=== PATIENT | female | born 1930 | race Caucasian/White ===

== ENCOUNTER 2016-10-23 11:00 | Outpatient (CLI) | payer MEDICARE, OTHER | END 2016-10-23 11:01 | disposition home or self-care (01) | DX: I50.9 Heart failure, unspecified (principal); Z95.0 Presence of cardiac pacemaker ==

== ENCOUNTER 2017-02-20 11:48 | Emergency (ER) | payer MEDICARE, OTHER ==
[2017-02-20] MEDS ORDERED: ACETAMINOPHEN 500 MG TABLET PO STA (13:01)
--- NOTE | 2017-02-20 13:04 | ED Physician Documentation ---
PD HPI MAJOR TRAUMA - Stated complaint Stated Complaint: HEAD LAC, LEFT HIP & ARM PX, GLF - Chief complaint Chief Complaint: Ext Problem - History obtained from History obtained from: Patient, Family - History of Present Illness Mechanism of injury: Fell (86-year-old woman who is up-to-date on tetanus and not anticoagulated fell backwards off a step hitting her head and left side on concrete. No loss of consciousness. She complains only mostly of headache but also some upper neck pain, but also left shoulder and hip pain. She is able to walk and bear weight but is unsteady per the son. However it does not exacerbate the hip when she walks.) Review of Systems Ten Systems: 10 systems reviewed and negative Constitutional: denies: Fever, Chills Throat: denies: Dental pain / toothache, Sore throat Cardiac: denies: Chest pain / pressure, Palpitations Respiratory: denies: Dyspnea PD PAST MEDICAL HISTORY - Past Medical History Cardiovascular: Hypertension Neuro: CVA - Past Surgical History Past Surgical History: Yes Cardiovascular: Pacemaker - Present Medications Home Medications: Ambulatory Orders Medication Instructions Recorded Confirmed Aspirin 81 mg PO 02/20/17 Calcium Carbonate/Vitamin D3 1 each PO 02/20/17 [Calcium 250-Vit D3 125 Tablet] Multivitamin [Multivitamins] 1 each PO 02/20/17 - Allergies Allergies/Adverse Reactions: Allergies Allergy/AdvReac Type Severity Reaction Status Date / Time amlodipine Allergy Unknown Verified 02/20/17 12:02 - Social History Does the pt smoke?: No Smoking Status: Never smoker Does the pt drink ETOH?: Yes Does the pt have substance abuse?: No PD ED PE NORMAL - Vitals Vital signs reviewed: Yes - General General: Alert and oriented X 3, No acute distress - HEENT HEENT: PERRL, EOMI, Other (There is an abrasion with a hematoma on the left occipital area, nothing to suture. She has mild upper neck tenderness with full range of motion.) - Cardiac Cardiac: RRR, No murmur - Respiratory Respiratory: No respiratory distress, Clear bilaterally - Abdomen Abdomen: Non tender - Back Back: No spinal TTP - Derm Derm: Normal color, Warm and dry - Extremities Extremities: Other (Left wrist is inconsistently tender as are the shoulder and hip. She is able to range them all without pain and internal and external rotation of the left hip is painless.) - Neuro Neuro: Alert and oriented X 3, Normal speech - Psych Psych: Normal mood, Normal affect Results - Vitals Vitals: Vital Signs - 24 hr 02/20/17 02/20/17 11:57 15:44 Temperature 36.8 C 36.7 C Heart Rate 66 68 Respiratory 16 18 Rate Blood Pressure 160/93 H 150/88 H O2 Saturation 97 98 Oxygen O2 Source Room air - Rads (name of study) CT Head/cspine Radiology: EMP read contemporaneously (Chronic and degenerative findings, she does have a small sclerotic area in C7) X-rays of the left wrist, left shoulder, left hip Radiology: EMP read contemporaneously (Osteoarthritis, no fracture) Departure - Departure Disposition: 01 Home, Self Care Clinical Impression: Fall Qualifiers: Encounter type: initial encounter Qualified Code(s): W19.XXXA - Unspecified fall, initial encounter Head injury Qualifiers: Encounter type: initial encounter Qualified Code(s): S09.90XA - Unspecified injury of head, initial encounter Scalp abrasion Qualifiers: Encounter type: initial encounter Qualified Code(s): S00.01XA - Abrasion of scalp, initial encounter Neck strain Qualifiers: Encounter type: initial encounter Qualified Code(s): S16.1XXA - Strain of muscle, fascia and tendon at neck level, initial encounter Contusion of left shoulder Qualifiers: Encounter type: initial encounter Qualified Code(s): S40.012A - Contusion of left shoulder, initial encounter Left wrist sprain Qualifiers: Encounter type: initial encounter Qualified Code(s): S63.502A - Unspecified sprain of left wrist, initial encounter Sprain of left hip Qualifiers: Encounter type: initial encounter Qualified Code(s): S73.102A - Unspecified sprain of left hip, initial encounter Condition: Good Record reviewed to determine appropriate education?: Yes Instructions: ED Head Injury Closed Comments: Tylenol as needed for pain, follow-up with your doctor in 1 week for recheck. Return if worse or if new symptoms develop. Your blood pressure was elevated today on check into the emergency department. This does not mean that you have hypertension, it is a common phenomenon to come to the emergency department and have elevated blood pressure. I recommend that she see her primary care physician within the week to have it rechecked when you are feeling better. You do have an abnormal area in 1 of your neck bones, not related to the fall today, discuss further workup with your doctor about this. Discharge Date/Time: 02/20/17 15:45
[2017-02-20] MEDS ORDERED: ACETAMINOPHEN 500 MG TABLET PO ONE (13:13)
--- NOTE | 2017-02-20 14:42 | CT Preliminary Report ---
Exam: CT Head W/O IMPRESSION: Atrophic and other chronic findings including multiple old infarctions. No definite acute disease. [facility] SITE ID: [id number]
--- NOTE | 2017-02-20 14:45 | CT Report ---
EXAM: CT HEAD EXAM DATE: 02/20/2017 02:29 PM. CLINICAL HISTORY: GLF with head/neck pain, also L wrist shoulder hip. COMPARISON: 08/03/2015. TECHNIQUE: Multiaxial CT images were obtained from the foramen magnum to the vertex. IV contrast: Non e. Reformats: Coronal. In accordance with CT protocol optimization, one or more of the following dose reduction techniques w ere utilized for this exam: automated exposure control, adjustment of mA and/or KV based on patient s ize, or use of iterative reconstructive technique. FINDINGS: Parenchyma: No intraparenchymal hemorrhage. No evidence of mass, midline shift, or CT findings of acu te infarction. Multiple old infarctions, notably left frontal, right occipital parietal, and left lac unar infarctions. Wolfe-white differentiation is distinct. Extraaxial Spaces: Normal for age. No subdural or epidural collections. Ventricles: The ventricles and cortical sulci are enlarged, consistent with age-related tissue loss. Sinuses: Imaged paranasal sinuses, orbits, and mastoids show no significant abnormality. Bones: Unremarkable. Other: Diffuse chronic microangiopathic white matter changes. Calcifications of intracranial carotid and vertebral arteries. IMPRESSION: Atrophic and other chronic findings including multiple old infarctions. No definite acute disease. [facility] Referring Provider Line: [phone] SITE ID: [id number]
--- NOTE | 2017-02-20 14:48 | CT Preliminary Report ---
Exam: CT Cervical Spine W/O IMPRESSION: 1. Degenerative and other chronic findings. No acute disease. 2. Small sclerotic lesion of C7. If clinical suspicion is high, follow-up MR scan or whole body radio nuclide bone scan may be helpful. [facility] SITE ID: [id number]
--- NOTE | 2017-02-20 14:51 | CT Report ---
EXAM: CT CERVICAL SPINE WITHOUT CONTRAST DATE: 02/20/2017 02:30 PM HISTORY: GLF with head/neck pain, also L wrist shoulder hip. COMPARISONS: None. TECHNIQUE: Thin-section axial images were acquired of the cervical spine without contrast. Post-proce ssing: Coronal and sagittal reformats. Other: None. In accordance with CT protocol optimization, one or more of the following dose reduction techniques w ere utilized for this exam: automated exposure control, adjustment of mA and/or KV based on patient s ize, or use of iterative reconstructive technique. FINDINGS: Alignment: Normal. No scoliosis or spondylolisthesis. Bones: Small sclerotic lesion in posterior C7 vertebral body of uncertain significance. No Fracture o r other bone lesion. Interspace Levels/Facets: Near fusion of disk at C3-C4. Mild disk space narrowing at C5-C6. Moderate degenerative changes. Musculature: Grossly unremarkable. Other: No prevertebral soft tissue swelling. Postoperative changes of thyroid. Clear lung apices. IMPRESSION: 1. Degenerative and other chronic findings. No acute disease. 2. Small sclerotic lesion of C7. If clinical suspicion is high, follow-up MR scan or whole body radio nuclide bone scan may be helpful. [facility] Referring Provider Line: [phone] SITE ID: [id number]
--- NOTE | 2017-02-20 15:26 | XRAY Preliminary Report ---
Exam: XR Hip w/Pelvis 2-3V LT IMPRESSION: No fracture identified. [facility] SITE ID: [id number]
--- NOTE | 2017-02-20 15:28 | XRAY Preliminary Report ---
Exam: XR Shoulder 3 View LT IMPRESSION: Normal shoulder radiography. [facility] SITE ID: [id number]
--- NOTE | 2017-02-20 15:29 | XRAY Preliminary Report ---
Exam: XR Wrist 3 View LT IMPRESSION: 1. No fracture identified. 2. Osteoarthritis. [facility] SITE ID: [id number]
--- NOTE | 2017-02-20 15:29 | XRAY Report ---
EXAM: LEFT HIP AND PELVIS RADIOGRAPHY EXAM DATE: 02/20/2017 03:08 PM. HISTORY: Fall, with left hip pain. COMPARISONS: 03/22/2009. TECHNIQUE: 1 view of the pelvis and 1 view of the hip. FINDINGS: Bones: Normal. No fracture or bone lesion. Joints: The bilateral hip, pubis symphysis, and sacroiliac joints are preserved. Soft Tissues: Normal. No soft tissue swelling. IMPRESSION: No fracture identified. [facility] Referring Provider Line: [phone] SITE ID: [id number]
--- NOTE | 2017-02-20 15:30 | XRAY Report ---
EXAM: LEFT SHOULDER RADIOGRAPHY EXAM DATE: 02/20/2017 03:09 PM. CLINICAL HISTORY: Fall, with left shoulder pain. COMPARISON: None. TECHNIQUE: 3 views. FINDINGS: Bones: Normal. No fracture or bone lesion. Joints: The glenohumeral and acromioclavicular joints are normal. Soft tissues: Left pulse generator and 2 leads noted. IMPRESSION: Normal shoulder radiography. [facility] Referring Provider Line: [phone] SITE ID: [id number]
--- NOTE | 2017-02-20 15:31 | XRAY Report ---
EXAM: LEFT WRIST RADIOGRAPHY EXAM DATE: 02/20/2017 03:09 PM. CLINICAL HISTORY: Fall with left wrist pain. COMPARISON: None. TECHNIQUE: 3 views. FINDINGS: Bones: Normal. No fractures or bone lesions. Joints: Disk space narrowing and sclerosis, first carpometacarpal joint worse than scaphomultangular joints. No subluxations. Soft Tissues: Normal. No soft tissue swelling. IMPRESSION: 1. No fracture identified. 2. Osteoarthritis. [facility] Referring Provider Line: [phone] SITE ID: [id number]
[2017-02-20 15:45] VITALS: BP 150/88
== END 2017-02-20 15:45 | disposition home or self-care (01) ==
LOC: ED 11:48
DX: S09.90XA Unspecified injury of head, initial encounter (principal); S00.01XA Abrasion of scalp, initial encounter; S16.1XXA Strain of muscle, fascia and tendon at neck level, initial encounter; S40.012A Contusion of left shoulder, initial encounter; S63.502A Unspecified sprain of left wrist, initial encounter; S73.102A Unspecified sprain of left hip, initial encounter; W10.9XXA Fall (on) (from) unspecified stairs and steps, initial encounter; I10 Essential (primary) hypertension; Z86.73 Personal history of transient ischemic attack (TIA), and cerebral infarction without residual deficits; Z79.82 Long term (current) use of aspirin; Z95.0 Presence of cardiac pacemaker
CPT/HCPCS: 70450; 72125; 73030; 73110; 73502; 99283; A9270

== ENCOUNTER 2017-04-29 10:35 | Outpatient (CLI) | payer MEDICARE, OTHER ==
[2017-04-29 16:09] LABS: CALCIUM 8.5 mg/dL (8.5-10.3); CREATININE 0.6 mg/dL (0.4-1.0); POTASSIUM 3.4 mmol/L (3.5-5.0)
== END 2017-04-29 10:36 | disposition home or self-care (01) ==
LOC: LAB.R 10:35
DX: I63.9 Cerebral infarction, unspecified (principal); N39.0 Urinary tract infection, site not specified
CPT/HCPCS: 80048; 81001; 81003; 87086

== ENCOUNTER 2017-04-29 20:15 | Outpatient (CLI) | payer MEDICARE, OTHER ==
[2017-04-29 21:25] LABS: BILIRUBIN,URINE NEGATIVE (NEGATIVE)
[2017-04-29 21:28] LABS: UA CHARGE (STRIP ONLY) YES; UR CULTURE IF IND NOT INDICATED
== END 2017-04-29 20:16 | disposition home or self-care (01) ==
LOC: LAB.R 20:15
DX: N39.0 Urinary tract infection, site not specified (principal)
CPT/HCPCS: 81001; 81003; 87086

== ENCOUNTER 2017-05-13 16:40 | Outpatient (CLI) | payer MEDICARE, OTHER ==
[2017-05-14 12:34] LABS: BUN - BLOOD UREA NITROGEN 21 mg/dL (6-20); CALCIUM 8.4 mg/dL (8.5-10.3); CARBON DIOXIDE - CO2 29 mmol/L (21-32); CHLORIDE 98 mmol/L (101-111); GFR - MDRD 52 (>89); GLUCOSE 130 mg/dL (70-100); MAGNESIUM 1.7 mg/dL (1.7-2.8); SODIUM 137 mmol/L (135-145)
== END 2017-05-13 16:41 | disposition home or self-care (01) ==
LOC: LAB.R 16:40
DX: E87.6 Hypokalemia (principal); I10 Essential (primary) hypertension; E83.42 Hypomagnesemia
CPT/HCPCS: 80048; 83735; 84132

== ENCOUNTER 2017-05-14 13:30 | Outpatient (CLI) | payer MEDICARE, OTHER | END 2017-05-14 13:31 | disposition home or self-care (01) | LOC: LAB.R 13:30 | PROVIDERS: ATTEND Internal Medicine | DX: D64.9 Anemia, unspecified (principal) | CPT/HCPCS: 82607; 82746 ==

== ENCOUNTER 2017-05-20 13:28 | Outpatient (CLI) | payer MEDICARE, OTHER | END 2017-05-20 13:29 | disposition critical access hospital (66) | LOC: EMS 13:28 | PROVIDERS: ATTEND Surgery | DX: T14.90XA Injury, unspecified, initial encounter (principal); W18.11XA Fall from or off toilet without subsequent striking against object, initial encounter; Y92.192 Bathroom in other specified residential institution as the place of occurrence of the external cause | CPT/HCPCS: A0425; A0429 ==

== ENCOUNTER 2017-05-20 13:47 | Inpatient (IN) | payer MEDICARE, OTHER ==
--- NOTE | 2017-05-20 13:59 | ED Physician Documentation ---
PD HPI Fall - Stated complaint Stated Complaint: FALL - History obtained from History obtained from: Patient, Family, EMS - History of Present Illness Mechanism of injury: Other (87-year-old woman with recent stroke, on aspirin but no Plavix or other blood thinners. She has noted decreased pulse oximetries for the last few days since [facility]. Today she was getting ready to go out for an early dinner and slipped and fell in the bathroom at the assisted living center, hit her head, chest wall on the right side and has moderate pain there but declines pain medications. She denies any shortness of breath or chest pain.) Review of Systems Ten Systems: 10 systems reviewed and negative Constitutional: denies: Fever, Chills Cardiac: reports: Chest pain / pressure. denies: Palpitations Respiratory: denies: Dyspnea, Cough GI: denies: Abdominal Pain PD PAST MEDICAL HISTORY - Past Medical History Cardiovascular: Other Respiratory: None Neuro: CVA Endocrine/Autoimmune: None GI: None COTTON AGENT: None : Incontinence HEENT: Glaucoma Psych: None Musculoskeletal: None Derm: None - Past Surgical History Past Surgical History: Yes Cardiovascular: Pacemaker HEENT: Cataracts (bilateral eyes) - Present Medications Home Medications: Ambulatory Orders Medication Instructions Recorded Confirmed Aspirin EC [Ecotrin] 325 mg PO DAILY #30 tablet 04/25/17 Atorvastatin [Lipitor] 20 mg PO QPM #30 tablet 04/25/17 Calcium Carbonate/Vitamin D3 1 each PO DAILY #30 04/25/17 04/22/17 [Calcium 250-Vit D3 125 Tablet] Latanoprost 0.005% Ophth Drops 1 drops EACHEYE QPM #1 04/25/17 04/22/17 [Xalatan Ophth Drops] Multivitamin [Multivitamins] 1 each PO DAILY #30 capsule 04/25/17 Potassium Chloride [K-Dur] 10 meq PO DAILYWM #30 tablet 04/25/17 hydroCHLOROthiazide [Hydrodiuril] 25 mg PO DAILY #30 tablet 04/25/17 - Allergies Allergies/Adverse Reactions: Allergies Allergy/AdvReac Type Severity Reaction Status Date / Time amlodipine Allergy Unknown Verified 02/20/17 12:02 - Social History Does the pt smoke?: No Smoking Status: Never smoker Does the pt drink ETOH?: Yes Does the pt have substance abuse?: No - POLST POLST Status: DNR PD ED PE NORMAL - Vitals Vital signs reviewed: Yes (Pulse ox in the mid to high 80s on room air) - General General: Alert and oriented X 3, No acute distress - HEENT HEENT: PERRL, EOMI - Neck Neck: Other (Mild upper C-spine tenderness) - Cardiac Cardiac: RRR, No murmur, Other (Tender over the right mid lateral chest wall) - Respiratory Respiratory: No respiratory distress, Clear bilaterally - Abdomen Abdomen: Normal bowel sounds, Soft, Non tender - Extremities Extremities: No deformity, No tenderness to palpate, Normal ROM s pain, Other ( Right hip and shoulder are nontender as are the knee and elbow, ankle, hand and wrist.) - Neuro Neuro: Alert and oriented X 3, Normal speech - Psych Psych: Normal mood, Normal affect Results - Vitals Vitals: Vital Signs - 24 hr 05/20/17 05/20/17 13:59 14:06 Temperature 36.4 C L Heart Rate 65 64 Respiratory 20 22 Rate Blood Pressure 136/65 H 140/67 H O2 Saturation 92 94 Oxygen O2 Source Nasal cannula - EKG (time done) 1408 Rate: Rate (enter#) (67) Rhythm: Paced Intervals: LBBB Computer interpretation: Agree with computer - Labs Labs: Laboratory Tests 05/20/17 05/20/17 14:12 14:12 WBC 6.6 RBC 3.25 L Hgb 11.5 L Hct 32.9 L MCV 101.5 H MCH 35.3 H MCHC 34.8 RDW 15.5 H Plt Count 202 MPV 7.5 L Neut # 4.8 Lymph # 0.8 L [place] # 0.8 Eos # 0.1 Baso # 0.0 Absolute Nucleated RBC 0.00 Nucleated RBC % 0.0 Sodium 134 L Potassium 4.5 Chloride 100 L Carbon Dioxide 24 Anion Gap 10.0 BUN 23 H Creatinine 1.1 H Estimated GFR (MDRD) 47 L Glucose 97 Calcium 8.0 L Total Bilirubin 0.5 AST 20 ALT 13 Alkaline Phosphatase 55 Total Protein 6.4 L Albumin 3.1 L Globulin 3.3 Albumin/Globulin Ratio 0.9 L Lipase 24 - Rads (name of study) CT Head, C scpine and CT Angio Chest Radiology: EMP read contemporaneously (Old areas of encephalomalacia in the head , no C-spine fracture, saddle pulmonary embolism without rib fracture.) PD MEDICAL DECISION MAKING - ED course ED course: 87-year-old woman had a slip and fall in the bathroom today, mostly hitting her head and right ribs. No evidence of traumatic abnormality on imaging there, but she is noted to be hypoxic so was also evaluated for PE given the recent admission and she does have a saddle pulmonary embolism without evidence of right heart strain. Given the recent stroke, the case was discussed by phone with neurology at [facility], Dr. Luisa Bradford, she felt it was safe to anticoagulate at this juncture given the recent stroke. Case discussed by phone with Dr. Ambriz for admission at 4:35 PM, we agreed on Lovenox. Departure - Departure Disposition: 66 [facility] DC/Xfer Clinical Impression: Head injury Qualifiers: Encounter type: initial encounter Qualified Code(s): S09.90XA - Unspecified injury of head, initial encounter Fall Qualifiers: Encounter type: initial encounter Qualified Code(s): W19.XXXA - Unspecified fall, initial encounter Pulmonary embolism Qualifiers: Pulmonary embolism type: saddle Chronicity: acute Acute cor pulmonale presence : without acute cor pulmonale Qualified Code(s): I26.92 - Saddle embolus of pulmonary artery without acute cor pulmonale Condition: Serious
[2017-05-20 14:18] LABS: BASOPHILS % (AUTO) 0.4 %; EOSINOPHILS # (AUTO) 0.1 10^3/uL (0.0-0.7); HCT - HEMATOCRIT 32.9 % (37.0-47.0); HGB - HEMOGLOBIN 11.5 g/dL (12.0-16.0); LYMPHOCYTES # (AUTO) 0.8 10^3/uL (1.5-3.5); LYMPHOCYTES % (AUTO) 12.1 %; MEAN CORPUSCULAR HEMOGLOBIN 35.3 pg (27.0-31.0); MEAN CORPUSCULAR HGB CONC 34.8 g/dL (32.0-36.0); MEAN CORPUSCULAR VOLUME 101.5 fL (81.0-99.0); MEAN PLATELET VOLUME 7.5 fL (7.9-10.8); MONOCYTES # (AUTO) 0.8 10^3/uL (0.0-1.0); NEUTROPHILS # (AUTO) 4.8 10^3/uL (1.5-6.6); NEUTROPHILS % (AUTO) 73.5 %; RED BLOOD COUNT 3.25 10^6/uL (4.20-5.40); RED CELL DISTRIBUTION WIDTH 15.5 % (12.0-15.0); UNCORRECTED WHITE BLOOD COUNT 6.6 x10^3/uL; WHITE BLOOD COUNT 6.6 x10^3/uL (4.8-10.8)
[2017-05-20 14:33] LABS: ALBUMIN/GLOBULIN RATIO 0.9 (1.0-2.2); BILIRUBIN,TOTAL 0.5 mg/dL (0.2-1.0); CREATININE 1.1 mg/dL (0.4-1.0); POTASSIUM 4.5 mmol/L (3.5-5.0); TOTAL PROTEIN 6.4 g/dL (6.7-8.2)
[2017-05-20] MEDS ORDERED: IOPAMIDOL-300 100 ML VIAL ONE (15:26)
--- NOTE | 2017-05-20 16:19 | CT Preliminary Report ---
Exam: CT CHEST ANGIO (PE) IMPRESSION: 1. Positive for acute pulmonary embolism, including saddle pulmonary embolism. 2. Mildly dilated right ventricle could be a sign of right ventricular strain. 3. Clear lungs. 4. No definite fracture identified. [facility] The above critical findings were discussed with Cristina by Dr. Anthony Ascencio at 16:18 hrs on 05/20/17. SITE ID: [id number]
--- NOTE | 2017-05-20 16:22 | CT Report ---
EXAM: CT ANGIOGRAM CHEST EXAM DATE: 05/20/2017 03:55 PM. CLINICAL HISTORY: Fall r chest inj, hypoexmia. COMPARISON: None. TECHNIQUE: Routine helical imaging was performed through the chest in the pulmonary arterial phase. I V Contrast: 75 cc Isovue-300 IV. Reconstructions: Coronal 3-D MIP reconstructions.Sagittal and sinclair l. The IV extravasated at in the injection. Patient reacted reporting pain. In accordance with CT protocol optimization, one or more of the following dose reduction techniques w ere utilized for this exam: automated exposure control, adjustment of mA and/or KV based on patient s ize, or use of iterative reconstructive technique. FINDINGS: Pulmonary Arteries: Diagnostic quality: Adequate through the segmental arteries. Positive for acute pulmonary embolism. T here is a saddle pulmonary embolism which extends into the right and left main pulmonary arteries. Th ere are lobar and segmental pulmonary emboli in the right middle lobe and right lower lobe. No reflux of contrast into the inferior vena cava. The RV LV ratio is mildly elevated at 1. Lungs/Pleura: No consolidation, nodules, or edema. No effusions or pneumothorax. Mediastinum: There is cardiomegaly. There is no pericardial effusion. There is a pacemaker with leads in the right atrium and right ventricle. No mediastinal or hilar lymphadenopathy. Thoracic Aorta: The aorta is not yet opacified with contrast. Upper Abdomen: Unremarkable. Other: No acute fracture identified, limited by motion artifact. IMPRESSION: 1. Positive for acute pulmonary embolism, including saddle pulmonary embolism. 2. Mildly dilated right ventricle could be a sign of right ventricular strain. 3. Clear lungs. 4. No definite fracture identified. [facility] The above critical findings were discussed with Cristina by Dr. Anthony Ascencio at 16:18 hrs on 05/20/17. Referring Provider Line: [phone] SITE ID: [id number]
--- NOTE | 2017-05-20 16:23 | CT Preliminary Report ---
Exam: CT HEAD W/O IMPRESSION: 1. No acute intracranial abnormality. 2. Encephalomalacia in the left frontal lobe and right parietal lobe are redemonstrated and similar t o the prior examination. [facility] SITE ID: [id number]
[2017-05-20] MEDS ORDERED: IOPAMIDOL-300 100 ML VIAL IVP ONE (16:26)
--- NOTE | 2017-05-20 16:26 | CT Report ---
EXAM: CT HEAD EXAM DATE: 05/20/2017 03:55 PM. CLINICAL HISTORY: Fall head inj. COMPARISON: Head CT dated 04/23/2017. TECHNIQUE: Multiaxial CT images were obtained from the foramen magnum to the vertex. Reformats: Coron al. IV contrast: None. In accordance with CT protocol optimization, one or more of the following dose reduction techniques w ere utilized for this exam: automated exposure control, adjustment of mA and/or KV based on patient s ize, or use of iterative reconstructive technique. FINDINGS: Parenchyma: Encephalomalacia in the left frontal lobe and right parietal lobe redemonstrated and brett lar to the prior examination. No acute intracranial abnormality. No mass effect or midline shift. No intracranial hemorrhage. Extraaxial Spaces: Normal for age. No subdural or epidural collections identified. Ventricles: Normal in size and position. Sinuses and Orbits: Imaged paranasal sinuses, orbits, and mastoids show no significant abnormality. Bones: No evidence of fracture or calvarial defect. Other: None. IMPRESSION: 1. No acute intracranial abnormality. 2. Encephalomalacia in the left frontal lobe and right parietal lobe are redemonstrated and similar t o the prior examination. [facility] Referring Provider Line: [phone] SITE ID: [id number]
--- NOTE | 2017-05-20 16:28 | CT Preliminary Report ---
Exam: CT CERVICAL SPINE W/O IMPRESSION: 1. No acute cervical spine fracture or listhesis. 2. Bone island in the posterior aspect of C7 on the left. 3. Bony fusion of the left and right facets at L3-L4. [facility] SITE ID: [id number]
--- NOTE | 2017-05-20 16:30 | CT Report ---
EXAM: CT CERVICAL SPINE WITHOUT CONTRAST DATE: 05/20/2017 03:52 PM. HISTORY: Fall neck pain. COMPARISONS: None. TECHNIQUE: Thin-section axial images were acquired of the cervical spine without contrast. Post-proce ssing: Coronal and sagittal reformats. Other: None. In accordance with CT protocol optimization, one or more of the following dose reduction techniques w ere utilized for this exam: automated exposure control, adjustment of mA and/or KV based on patient s ize, or use of iterative reconstructive technique. FINDINGS: Alignment: Normal. No scoliosis or spondylolisthesis. Bones: No fracture or bone lesion. There is a 7 mm focal hyperdensity in the posterior left lateral a spect of the C7 vertebral body. Interspace Levels/Facets: C1-C2: Unremarkable. C2-C3: Unremarkable. C3-C4: Bony fusion of the left and right facets. C4-C5: Unremarkable. C5-C6: Unremarkable. C6-C7: Unremarkable. C7-T1: Unremarkable. Musculature: Normal. No fatty atrophy. Other: The paravertebral and prevertebral soft tissues are normal. The lung apices are clear. IMPRESSION: 1. No acute cervical spine fracture or listhesis. 2. Bone island in the posterior aspect of C7 on the left. 3. Bony fusion of the left and right facets at L3-L4. [facility] Referring Provider Line: [phone] SITE ID: [id number]
[2017-05-20] MEDS ORDERED: ENOXAPARIN 60 MG/0.6 ML SYRINGE SUBQ STA (16:35)
[2017-05-20] MEDS ORDERED: ENOXAPARIN 60 MG/0.6 ML SYRINGE SUBQ ONE (16:47)
[2017-05-20] MEDS ORDERED: ACETAMINOPHEN 325 MG TABLET PO PRN (16:59)
[2017-05-20] MEDS ORDERED: ONDANSETRON ODT 4 MG TABLET TL PRN (16:59)
[2017-05-20] MEDS ORDERED: SODIUM CHLORIDE FLUSH 0.9% 10 ML SYRINGE IVP PRN (16:59)
[2017-05-20] MEDS: oxyCODONE 10 MG/0.5 ML SYRINGE PO PRN (18:22)
[2017-05-20] MEDS: D5NS W/20 MEQ KCL 1,000 ML IV SCH (18:29)
[2017-05-20] MEDS: SODIUM CHLORIDE FLUSH 0.9% 10 ML SYRINGE IVP SCH (18:30)
[2017-05-20] MEDS: PANTOPRAZOLE 40 MG TABLET PO SCH (18:31)
--- NOTE | 2017-05-20 18:41 | HISTORY & PHYSICAL EXAMINATION ---
Chief Complaint - Chief Complaint Chief Complaint: SOB, fall History of Present Illness - Admitted From Admitted From:: ED - History Obtained From Records Reviewed: yes History obtained from: patient, chart review, daughter. Exam Limitations: none - History of Present Illness HPI Comment/Other: Betty Aguilera is an 87 year old female with a PMX of recent stroke with improved residual deficits-on aspirin, HTN, glaucoma, incontinence, and status post pacemaker, . She was seen at her PCP clinic yesterday and was noted to have decreased pulse oximetries. She has now returned to her assisted living after completing her rehab at [facility]. Today she was getting ready to go out for an early dinner and slipped and fell in the bathroom at the assisted living center, hit her head, chest wall on the right side and has moderate pain. Per daughter's report her mother pushed life alert for help. After arriving in the ED, she was found to have a saddle PE. She will be admitted to the hospitalist service for proper anticoagulation therapy, and pain management. History - Past Medical History Cardiovascular: reports: Other Respiratory: reports: None Neuro: reports: CVA Endocrine/Autoimmune: reports: None GI: reports: None [employer]: reports: None : reports: Incontinence HEENT: reports: Glaucoma Psych: reports: None Musculoskeletal: reports: None Derm: reports: None MRSA Hx?: No - Past Surgical History Cardiovascular: reports: Pacemaker HEENT: reports: Cataracts (bilateral eyes) - POLST POLST Status: DNR Meds/Allgy - Home Medications Home Medications: Ambulatory Orders Medication Instructions Recorded Confirmed Aspirin EC [Ecotrin] 325 mg PO DAILY #30 tablet 04/25/17 05/20/17 Atorvastatin [Lipitor] 20 mg PO QPM #30 tablet 04/25/17 05/20/17 Calcium Carbonate/Vitamin D3 1 each PO DAILY #30 04/25/17 05/20/17 [Calcium 250-Vit D3 125 Tablet] Latanoprost 0.005% Ophth Drops 1 drops EACHEYE QPM #1 04/25/17 05/20/17 [Xalatan Ophth Drops] Multivitamin [Multivitamins] 1 each PO DAILY #30 capsule 04/25/17 05/20/17 Potassium Chloride [K-Dur] 10 meq PO DAILYWM #30 tablet 04/25/17 05/20/17 hydroCHLOROthiazide [Hydrodiuril] 25 mg PO DAILY #30 tablet 04/25/17 05/20/17 - Allergies Allergies/Adverse Reactions: Allergies Allergy/AdvReac Type Severity Reaction Status Date / Time amlodipine Allergy Unknown Verified 02/20/17 12:02 Review of Systems - Constitutional Constitutional: reports: Malaise, Weakness - Cardiovascular Cariovascular: reports: Lightheadedness, Decr. exercise tolerance - Genitourinary Genitourinary: reports: Incontinence - Neurological Neurological: reports: Focal weakness, Memory problems, Pre-existing deficit - All Other Systems All Other Systems: reports: Reviewed and negative Exam - Vital Signs Reviewed Vital Signs: Yes Vital Signs: Vital Signs x48h Temp Pulse Resp BP Pulse Ox 05/20/17 18:05 36.7 C 70 18 158/61 H 97 - Physical Exam General Appearance: positive: No acute distress, Alert Eyes Bilateral: positive: Normal inspection, PERRL ENT: positive: ENT inspection nml, Pharynx nml Neck: positive: Nml inspection, Thyroid nml, No JVD, Trachea midline Respiratory: positive: Chest non-tender, No respiratory distress, Rhonchi ( crackles through out both lung [place].) Cardiovascular: positive: No gallop, Irregularly irregular, Systolic murmur Peripheral Pulses: positive: 2+ Abdomen: positive: Non-tender, No organomegaly, Nml bowel sounds, No distention Back: positive: Nml inspection Skin: positive: Color nml, No rash, Warm, Dry Extremities: positive: Non-tender, Full ROM, Nml appearance, No pedal edema Neurologic/Psychiatric: positive: Oriented x3 (forgetful, related to previous CVA.), Mood/affect nml, Weakness, Sensory loss Reflexes: Bicep (R): 3+, Bicep (L): 3+ Conclusion/Plan - Problem List (1) Saddle pulmonary embolus Conclusion/Plan: This was found on a CT chest on admission and showed-Positive for acute pulmonary embolism, including saddle pulmonary embolism. Patient has been hypoxic and at a clinic PCP visit the day prior to admission, she was found to be in the 80's. Plan: Supplemental O2 as needed, enoxoparin SQ therapy. VS monitoring. (2) Hypertension Conclusion/Plan: Patient has had B/Ps WNL. Plan: Continue to monitor and resume HCTZ when appropriate. Qualifiers: (3) CVA, old, ataxia Conclusion/Plan: On previous admission, patient was noted to have profound right sided weakness. After PT at SNF, she has dramatically improve and has very subtle weakness on RLE. Plan: Plan to encourage ambulation and up to her chair for meals. (4) Fall Conclusion/Plan: Patient had an unfortunate fall at assisted living facility after being seen in her PCP clinic, at which time, per daughter, Jun, was noted to be "below normal pulse oximetry" Qualifiers: Encounter type: initial encounter Qualified Code(s): W19.XXXA - Unspecified fall, initial encounter (5) Hypoxemia Conclusion/Plan: Patient has been hypoxic and at a clinic PCP visit the day prior to admission, she was found to be in the 80's. (per daughter's report). Plan: treat the cause-saddle PE with enoxaparin SQ, monitor VS. - Lab Results Fish Bones: 05/20/17 14:12 05/20/17 14:12 - Diagnostic Imaging Results Diagnostic Imaging Results: positive: Final report reviewed Diagnostic Imaging Results Comments: CT chest on admit: IMPRESSION: 1. Positive for acute pulmonary embolism, including saddle pulmonary embolism. 2. Mildly dilated right ventricle could be a sign of right ventricular strain. 3. Clear lungs. 4. No definite fracture identified. Head CT on admit: IMPRESSION: 1. No acute intracranial abnormality. 2. Encephalomalacia in the left frontal lobe and right parietal lobe are re- demonstrated and similar to the prior examination. Cervical spine CT: IMPRESSION: 1. No acute cervical spine fracture or listhesis. 2. Bone island in the posterior aspect of C7 on the left. 3. Bony fusion of the left and right facets at L3-L4. - EKG Results EKG Interpreted Independently: Yes Issues/Core Measures - Anticipated LOS Anticipated Stay Length: 2 or more midnights - DVT/VTE - Prophylaxis VTE/DVT Device ordered at admit?: Yes VTE/DVT Prophylaxis med ordered at admit?: Yes - Stroke - Rehab Assessment Rehab services assessment to be ordered?: Yes - AMI - Statin at Admit Aspirin Prescribed on Admit: Yes
[2017-05-21] MEDS: oxyCODONE 10 MG/0.5 ML SYRINGE PO PRN ×2 (01:52→10:34)
[2017-05-21] MEDS: D5NS W/20 MEQ KCL 1,000 ML IV SCH ×2 (04:05→13:23)
[2017-05-21] MEDS: ENOXAPARIN 60 MG/0.6 ML SYRINGE SUBQ SCH ×2 (06:04→17:52)
[2017-05-21] MEDS: PANTOPRAZOLE 40 MG TABLET PO SCH (06:04)
[2017-05-21] MEDS: SODIUM CHLORIDE FLUSH 0.9% 10 ML SYRINGE IVP SCH ×3 (06:08→18:52)
[2017-05-21] MEDS: POLYETHYLENE GLYCOL 3350 17 GM PACKET PO SCH (09:21)
--- NOTE | 2017-05-21 17:53 | PROVIDER PROGRESS NOTE ---
Subjective - Prog Note Date Prog Note Date: 05/21/17 Prog Note Time: 17:51 - Subjective Pt reports feeling: Improved Subjective: Betty states that she has so much family coming to town and wishes to go home. She denies SOB, chest pain, N/V or a new cough. She is requiring 2L nasal cannula and states that she feels so much better with it. Daughter, Jey at bedside. Current Medications - Current Medications Current Medications: Active Medications Acetaminophen (Tylenol) 650 mg PO Q4HR PRN PRN Reason: Pain 1 to 4 Last Admin: 05/20/17 18:23 Dose: 650 mg Atorvastatin Calcium (Lipitor) 20 mg PO QPM [facility] Last Admin: 05/21/17 20:32 Dose: 20 mg Calcium Carbonate/Glycine (Tums) 1 mg PO DAILY [facility] Enoxaparin Sodium (Lovenox) 60 mg SUBQ Q12H [facility] Last Admin: 05/21/17 17:52 Dose: 60 mg Hydrochlorothiazide (Hydrodiuril) 12.5 mg PO MoWeFr@0900 [facility] Last Admin: 05/21/17 19:04 Dose: 12.5 mg Labetalol HCl (Trandate) 100 mg PO BID [facility] Last Admin: 05/21/17 20:32 Dose: 100 mg Latanoprost (Xalatan Ophth Drops) 1 drops EACHEYE QPM [facility] Last Admin: 05/21/17 20:33 Dose: 1 drops Multivitamins (Theragran) 1 tab PO DAILY [facility] Ondansetron HCl (Zofran Odt) 4 mg TL Q6HR PRN PRN Reason: Nausea / Vomiting Oxycodone HCl (Roxicodone Oral Soln) 10 mg PO Q6H PRN PRN Reason: PAIN Last Admin: 05/21/17 10:34 Dose: 10 mg Pantoprazole Sodium (Protonix) 40 mg PO QDAC [facility] Last Admin: 05/21/17 06:04 Dose: 40 mg Polyethylene Glycol (Miralax) 17 gm PO DAILY [facility] Last Admin: 05/21/17 09:21 Dose: 17 gm Potassium Chloride (Micro-K) 10 meq PO DAILYWM [facility] Sodium Chloride (Normal Saline Flush 0.9%) 10 ml IVP PRN PRN PRN Reason: NEEDED PER PROVIDER ORDERS Sodium Chloride (Normal Saline Flush 0.9%) 10 ml IVP Q8HR JONE Last Admin: 05/21/17 18:52 Dose: 10 ml Acetaminophen [Tylenol] 650 mg PO Q6H PRN 05/21/17 Aspirin [Adult Low Dose Aspirin EC] 81 mg PO DAILY 05/21/17 Labetalol HCl 100 mg PO BID 05/21/17 hydroCHLOROthiazide [Hydrodiuril] 12.5 mg PO MOWEFR 05/21/17 Objective - Vital Signs/Intake & Output Reviewed Vital Signs: Yes Vital Signs: Vital Signs x48h Temp Pulse Pulse Pulse Pulse Resp BP 05/21/17 15:43 36.9 C 71 20 05/21/17 12:14 36.5 C 67 18 05/21/17 10:15 68 69 69 157/97 H BP BP Pulse Ox 05/21/17 15:43 155/58 H 97 05/21/17 12:14 158/64 H 95 05/21/17 10:15 144/52 H Intake & Output: Intake & Output 05/18/17 05/19/17 05/20/17 05/21/17 23:59 23:59 23:59 23:59 Intake Total 300 2600 Output Total 50 1025 Balance 250 1575 - Objective General Appearance: positive: No acute distress, Alert Eyes Bilateral: positive: Normal inspection, PERRL ENT: positive: ENT inspection nml, Pharynx nml, No signs of dehydration Neck: positive: Nml inspection, Thyroid nml, No JVD, Trachea midline Respiratory: positive: Chest non-tender, No respiratory distress, Rhonchi Cardiovascular: positive: Irregularly irregular, Systolic murmur Peripheral Pulses: 2+ Radial (R), 2+ Radial (L) Abdomen: positive: Non-tender, No organomegaly, Nml bowel sounds, No distention Back: positive: Nml inspection Skin: positive: Color nml, No rash, Warm, Dry Extremities: positive: Non-tender, Full ROM, Nml appearance Neurologic/Psychiatric: positive: Oriented x3, Weakness, Sensory loss, Depressed mood/affect Reflexes: Bicep (R): 4+, Bicep (L): 4+ - Lab Results Fish Bones: 05/20/17 14:12 05/20/17 14:12 - Diagnostic Imaging Diagnostic Imaging Results: positive: Final report reviewed Assessment/Plan - Problem List (1) Saddle pulmonary embolus Impression: This was found on a CT chest on admission and showed-Positive for acute pulmonary embolism, including saddle pulmonary embolism. Patient has been hypoxic and at a clinic PCP visit the day prior to admission, she was found to be in the 80's per daughter's report. Plan: Supplemental O2 as needed, enoxoparin SQ therapy. VS monitoring. (2) Hypertension Impression: Patients latest blood pressure was noted to be 158/63.. Plan: Continue to monitor and resumed HCTZ. Qualifiers: (3) CVA, old, ataxia Impression: On previous admission, patient was noted to have profound right sided weakness. After PT at SNF, she has dramatically improve and has very subtle weakness on RLE. Plan: Plan to encourage ambulation and up to her chair for meals. (4) Fall Impression: Patient had an unfortunate fall at assisted living facility after being seen in her PCP clinic, at which time, per daughter, Jun, was noted to be "below normal pulse oximetry" Plan: Gait belt will be used for ambulation. Patient is at a high risk for falls. Qualifiers: Encounter type: initial encounter Qualified Code(s): W19.XXXA - Unspecified fall, initial encounter (5) Hypoxemia Impression: Patient has been hypoxic and at a clinic PCP visit the day prior to admission, she was found to be in the 80's. (per daughter's report). Plan: treat the cause-saddle PE with enoxaparin SQ, monitor VS.
[2017-05-21] MEDS: hydroCHLOROthiazide 25 MG TABLET PO SCH (19:04)
[2017-05-21] MEDS: ATORVASTATIN 10 MG TABLET PO SCH (20:32)
[2017-05-21] MEDS: LABETALOL 100 MG TABLET PO SCH (20:32)
[2017-05-21] MEDS: LATANOPROST 0.005% OPHTH DROPS EACHEYE SCH (20:33)
[2017-05-22] MEDS: ENOXAPARIN 60 MG/0.6 ML SYRINGE SUBQ SCH ×2 (05:27→16:23)
[2017-05-22] MEDS: oxyCODONE 10 MG/0.5 ML SYRINGE PO PRN (05:27)
[2017-05-22] MEDS: SODIUM CHLORIDE FLUSH 0.9% 10 ML SYRINGE IVP SCH ×3 (07:01→21:07)
[2017-05-22] MEDS: PANTOPRAZOLE 40 MG TABLET PO SCH (07:01)
--- NOTE | 2017-05-22 07:06 | PROVIDER PROGRESS NOTE ---
Subjective - Prog Note Date Prog Note Date: 05/22/17 Prog Note Time: 07:05 - Subjective Pt reports feeling: No change Subjective: Betty has no complaints and slept well overnight. She denies SOB, chest pain, N /V or a new cough. She still requires 2.5L nasal cannula and ambulating well. Current Medications - Current Medications Current Medications: Active Medications Acetaminophen (Tylenol) 650 mg PO Q4HR PRN PRN Reason: Pain 1 to 4 Last Admin: 05/20/17 18:23 Dose: 650 mg Atorvastatin Calcium (Lipitor) 20 mg PO QPM [facility] Last Admin: 05/21/17 20:32 Dose: 20 mg Calcium Carbonate/Glycine (Tums) 1 mg PO DAILY [facility] Enoxaparin Sodium (Lovenox) 60 mg SUBQ Q12H [facility] Last Admin: 05/22/17 05:27 Dose: 60 mg Hydrochlorothiazide (Hydrodiuril) 12.5 mg PO MoWeFr@0900 [facility] Last Admin: 05/21/17 19:04 Dose: 12.5 mg Labetalol HCl (Trandate) 100 mg PO BID [facility] Last Admin: 05/21/17 20:32 Dose: 100 mg Latanoprost (Xalatan Ophth Drops) 1 drops EACHEYE QPM [facility] Last Admin: 05/21/17 20:33 Dose: 1 drops Multivitamins (Theragran) 1 tab PO DAILY [facility] Ondansetron HCl (Zofran Odt) 4 mg TL Q6HR PRN PRN Reason: Nausea / Vomiting Oxycodone HCl (Roxicodone Oral Soln) 10 mg PO Q6H PRN PRN Reason: PAIN Last Admin: 05/22/17 05:27 Dose: 10 mg Pantoprazole Sodium (Protonix) 40 mg PO QDAC [facility] Last Admin: 05/22/17 07:01 Dose: 40 mg Polyethylene Glycol (Miralax) 17 gm PO DAILY [facility] Last Admin: 05/21/17 09:21 Dose: 17 gm Potassium Chloride (Micro-K) 10 meq PO DAILYWM [facility] Sodium Chloride (Normal Saline Flush 0.9%) 10 ml IVP PRN PRN PRN Reason: NEEDED PER PROVIDER ORDERS Sodium Chloride (Normal Saline Flush 0.9%) 10 ml IVP Q8HR [facility] Last Admin: 05/22/17 07:01 Dose: 10 ml Acetaminophen [Tylenol] 650 mg PO Q6H PRN 05/21/17 Aspirin [Adult Low Dose Aspirin EC] 81 mg PO DAILY 05/21/17 Labetalol HCl 100 mg PO BID 05/21/17 hydroCHLOROthiazide [Hydrodiuril] 12.5 mg PO MOWEFR 05/21/17 Objective - Vital Signs/Intake & Output Reviewed Vital Signs: Yes Vital Signs: Vital Signs x48h Temp Pulse Resp BP Pulse Ox 05/22/17 05:00 37.2 C 77 18 150/78 H 97 05/22/17 01:00 36.7 C 75 18 165/71 H 98 Intake & Output: Intake & Output 05/19/17 05/20/17 05/21/17 05/22/17 23:59 23:59 23:59 23:59 Intake Total 300 3900 100 Output Total 50 1375 1200 Balance 250 2525 -1100 - Objective General Appearance: positive: No acute distress, Lethargic Eyes Bilateral: positive: Normal inspection ENT: positive: ENT inspection nml, Pharynx nml, No signs of dehydration Neck: positive: Nml inspection, Thyroid nml, No JVD, Trachea midline Respiratory: positive: Chest non-tender, No respiratory distress, Rhonchi ( bilateral crackles low lobes.) Cardiovascular: positive: Regular rate & rhythm, No gallop Peripheral Pulses: 2+ Radial (R), 2+ Radial (L) Abdomen: positive: Non-tender, No organomegaly, Nml bowel sounds, No distention Back: positive: Nml inspection Skin: positive: Color nml, No rash, Warm, Dry Extremities: positive: Non-tender, Full ROM, Nml appearance, Pedal edema Neurologic/Psychiatric: positive: Motor nml, Sensation nml, Mood/affect nml, Disoriented to time, Sensory loss Reflexes: Bicep (R): 3+, Bicep (L): 3+ - Lab Results Fish Bones: 05/20/17 14:12 05/20/17 14:12 - Diagnostic Imaging Diagnostic Imaging Results: positive: Final report reviewed Assessment/Plan - Problem List (1) Saddle pulmonary embolus Impression: This was found on a CT chest on admission and showed-Positive for acute pulmonary embolism, including saddle pulmonary embolism. Patient has been hypoxic and at a clinic PCP visit the day prior to admission, she was found to be in the 80's per daughter's report. Plan: Supplemental O2 as needed, enoxoparin SQ therapy. VS monitoring. (2) Hypertension Impression: Patients latest blood pressure was noted to be 141/65 this AM. Plan: Continue to monitor and resumed HCTZ Qualifiers: (3) CVA, old, ataxia Impression: On previous admission, patient was noted to have profound right sided weakness. After PT at SNF, she has dramatically improve and has very subtle weakness on RLE. Plan: Plan to encourage ambulation and up to her chair for meals. Lipitor resumed despite being cancelled at a recent clinic appointment for her weakness and hypoxia. (4) Fall Impression: Patient had an unfortunate fall at assisted living facility after being seen in her PCP clinic, at which time, per daughter, Jun, was noted to be "below normal pulse oximetry". Plan: Gait belt will be used for ambulation. Patient is at a high risk for falls. Patient continues on 2.5L nasal cannula, but does not require home O2. Qualifiers: Encounter type: initial encounter Qualified Code(s): W19.XXXA - Unspecified fall, initial encounter (5) Hypoxemia Impression: Patient has been hypoxic and at a clinic PCP visit the day prior to admission, she was found to be in the 80's. (per daughter's report). Plan: treat the cause-saddle PE with enoxaparin SQ, monitor VS. Patient continues to require 2.5L oxygen via nasal cannula, no home O2.
[2017-05-22] MEDS ORDERED: CALCIUM CARBONATE CHEW 500 MG TABLET PO SCH (09:00)
[2017-05-22] MEDS: POLYETHYLENE GLYCOL 3350 17 GM PACKET PO SCH (09:09)
[2017-05-22] MEDS: LABETALOL 100 MG TABLET PO SCH ×2 (09:09→21:06)
[2017-05-22] MEDS: MULTIVITAMIN TABLET PO SCH (09:09)
[2017-05-22] MEDS: POTASSIUM CHLORIDE 10 MEQ CAPSULE PO SCH (09:09)
[2017-05-22] MEDS: CALCIUM CARBONATE CHEW 500 MG TABLET PO SCH (09:13)
[2017-05-22] MEDS: ATORVASTATIN 10 MG TABLET PO SCH (21:06)
[2017-05-22] MEDS: LATANOPROST 0.005% OPHTH DROPS EACHEYE SCH (21:07)
[2017-05-23] MEDS: ENOXAPARIN 60 MG/0.6 ML SYRINGE SUBQ SCH ×2 (05:14→17:47)
[2017-05-23 06:23] LABS: CREATININE 0.7 mg/dL (0.4-1.0); POTASSIUM 4.3 mmol/L (3.5-5.0)
[2017-05-23 06:24] LABS: BASOPHILS % (AUTO) 0.5 %; EOSINOPHILS # (AUTO) 0.1 10^3/uL (0.0-0.7); EOSINOPHILS % (AUTO) 2.7 %; HGB - HEMOGLOBIN 10.2 g/dL (12.0-16.0); LYMPHOCYTES # (AUTO) 0.7 10^3/uL (1.5-3.5); MONOCYTES # (AUTO) 0.5 10^3/uL (0.0-1.0); MONOCYTES % (AUTO) 10.4 %; NEUTROPHILS # (AUTO) 3.4 10^3/uL (1.5-6.6); NEUTROPHILS % (AUTO) 71.4 %; NUCLEATED RED BLOOD CELLS AUTO 0.1 /100WBC; RED CELL DISTRIBUTION WIDTH 15.3 % (12.0-15.0)
[2017-05-23] MEDS: PANTOPRAZOLE 40 MG TABLET PO SCH (06:25)
[2017-05-23] MEDS: SODIUM CHLORIDE FLUSH 0.9% 10 ML SYRINGE IVP SCH ×3 (06:25→20:51)
[2017-05-23 07:49] LABS: UNCORRECTED WHITE BLOOD COUNT 5.6 x10^3/uL; WHITE BLOOD COUNT 5.6 x10^3/uL (4.8-10.8)
[2017-05-23 07:50] LABS: HCT - HEMATOCRIT 30.4 % (37.0-47.0)
[2017-05-23 07:51] LABS: MEAN CORPUSCULAR HGB CONC 33.7 g/dL (32.0-36.0); MEAN PLATELET VOLUME 8.5 fL (7.9-10.8)
[2017-05-23] MEDS: MULTIVITAMIN TABLET PO SCH (10:04)
[2017-05-23] MEDS: POTASSIUM CHLORIDE 10 MEQ CAPSULE PO SCH (10:04)
[2017-05-23] MEDS: LABETALOL 100 MG TABLET PO SCH ×2 (10:05→20:50)
[2017-05-23] MEDS: POLYETHYLENE GLYCOL 3350 17 GM PACKET PO SCH (10:07)
[2017-05-23] MEDS: hydroCHLOROthiazide 25 MG TABLET PO SCH (10:10)
[2017-05-23] MEDS ORDERED: CALCIUM CARBONATE CHEW 500 MG TABLET PO ONE (11:00)
--- NOTE | 2017-05-23 11:51 | PROVIDER PROGRESS NOTE ---
Subjective - Prog Note Date Prog Note Date: 05/23/17 Prog Note Time: 11:50 - Subjective Pt reports feeling: Improved Subjective: Betty as usual cannot remember what she did earlier today or what she had to eat. She was intermittently sleepy during her exam while in her recliner. She denies changes in vision, SOB, chest pain, N/V or a new cough. Current Medications - Current Medications Current Medications: Active Medications Acetaminophen (Tylenol) 650 mg PO Q4HR PRN PRN Reason: Pain 1 to 4 Last Admin: 05/20/17 18:23 Dose: 650 mg Atorvastatin Calcium (Lipitor) 20 mg PO QPM [facility] Last Admin: 05/22/17 21:06 Dose: 20 mg Calcium Carbonate/Glycine (Tums) 500 mg PO DAILY [facility] Last Admin: 05/22/17 09:13 Dose: 500 mg Enoxaparin Sodium (Lovenox) 60 mg SUBQ Q12H [facility] Last Admin: 05/23/17 05:14 Dose: 60 mg Hydrochlorothiazide (Hydrodiuril) 12.5 mg PO MoWeFr@0900 [facility] Last Admin: 05/23/17 10:10 Dose: 12.5 mg Labetalol HCl (Trandate) 100 mg PO BID [facility] Last Admin: 05/23/17 10:05 Dose: 100 mg Latanoprost (Xalatan Ophth Drops) 1 drops EACHEYE QPM [facility] Last Admin: 05/22/17 21:07 Dose: 1 drops Multivitamins (Theragran) 1 tab PO DAILY [facility] Last Admin: 05/23/17 10:04 Dose: 1 tab Ondansetron HCl (Zofran Odt) 4 mg TL Q6HR PRN PRN Reason: Nausea / Vomiting Oxycodone HCl (Roxicodone Oral Soln) 10 mg PO Q6H PRN PRN Reason: PAIN Last Admin: 05/22/17 05:27 Dose: 10 mg Pantoprazole Sodium (Protonix) 40 mg PO QDAC [facility] Last Admin: 05/23/17 06:25 Dose: 40 mg Polyethylene Glycol (Miralax) 17 gm PO DAILY [facility] Last Admin: 05/23/17 10:07 Dose: 17 gm Potassium Chloride (Micro-K) 10 meq PO DAILYWM [facility] Last Admin: 05/23/17 10:04 Dose: 10 meq Sodium Chloride (Normal Saline Flush 0.9%) 10 ml IVP PRN PRN PRN Reason: NEEDED PER PROVIDER ORDERS Last Admin: 05/22/17 09:14 Dose: 10 ml Sodium Chloride (Normal Saline Flush 0.9%) 10 ml IVP Q8HR [facility]ONE Last Admin: 05/23/17 06:25 Dose: 10 ml Acetaminophen [Tylenol] 650 mg PO Q6H PRN 05/21/17 Aspirin [Adult Low Dose Aspirin EC] 81 mg PO DAILY 05/21/17 Labetalol HCl 100 mg PO BID 05/21/17 hydroCHLOROthiazide [Hydrodiuril] 12.5 mg PO MOWEFR 05/21/17 Objective - Vital Signs/Intake & Output Reviewed Vital Signs: Yes Vital Signs: Vital Signs x48h Temp Pulse Resp BP Pulse Ox 05/23/17 08:43 95 05/23/17 08:41 37.1 C 70 16 163/67 H 95 05/23/17 07:32 96 05/23/17 06:34 93 05/23/17 05:00 37.2 C 73 16 149/58 H 95 Intake & Output: Intake & Output 05/20/17 05/21/17 05/22/17 05/23/17 23:59 23:59 23:59 23:59 Intake Total 300 3900 460 150 Output Total 50 1375 1650 Balance 250 2525 -1190 150 - Objective General Appearance: positive: No acute distress, Lethargic Eyes Bilateral: positive: Normal inspection ENT: positive: ENT inspection nml, Pharynx nml, Dry mucous membranes Neck: positive: Nml inspection, Thyroid nml, No JVD, Trachea midline Respiratory: positive: Chest non-tender, No respiratory distress, Rhonchi ( bilateral lobes.) Cardiovascular: positive: No gallop, Irregularly irregular, Systolic murmur Peripheral Pulses: 2+ Radial (R), 2+ Radial (L) Abdomen: positive: Non-tender, No organomegaly, Nml bowel sounds, No distention Rectal: positive: Non-tender Back: positive: Nml inspection Skin: positive: Color nml, No rash, Warm, Dry, Pallor Extremities: positive: Non-tender, Full ROM, Nml appearance, Pedal edema ( likely dependent.) Neurologic/Psychiatric: positive: Disoriented to time, Weakness, Sensory loss, Depressed mood/affect - Lab Results Fish Bones: 05/23/17 05:44 05/23/17 05:44 Other Labs: Lab Results x24hrs 05/23/17 05/23/17 Range/Units 05:44 05:44 WBC 5.6 (4.8-10.8) x10^3/uL RBC 3.10 L (4.20-5.40) 10^6/uL Hgb 10.2 L (12.0-16.0) g/dL Hct 30.4 L (37.0-47.0) % MCV 98.0 (81.0-99.0) fL MCH 33.0 H (27.0-31.0) pg MCHC 33.7 (32.0-36.0) g/dL RDW 15.3 H (12.0-15.0) % Plt Count 214 (130-450) 10^3/uL MPV 8.5 (7.9-10.8) fL Neut # 3.4 (1.5-6.6) 10^3/uL Lymph # 0.7 L (1.5-3.5) 10^3/uL [place] # 0.5 (0.0-1.0) 10^3/uL Eos # 0.1 (0.0-0.7) 10^3/uL Baso # 0.0 (0.0-0.1) 10^3/uL Absolute Nucleated RBC 0.00 x10^3/uL Nucleated RBC % 0.1 /100WBC Manual Slide Review Indicated Sodium 135 (135-145) mmol/L Potassium 4.3 (3.5-5.0) mmol/L Chloride 100 L (101-111) mmol/L Carbon Dioxide 28 (21-32) mmol/L Anion Gap 7.0 (6-13) BUN 18 (6-20) mg/dL Creatinine 0.7 (0.4-1.0) mg/dL Estimated GFR (MDRD) 79 L (>89) Glucose 93 (70-100) mg/dL Calcium 8.0 L (8.5-10.3) mg/dL - Diagnostic Imaging Diagnostic Imaging Results: positive: Final report reviewed Assessment/Plan - Problem List (1) Saddle pulmonary embolus Impression: This was found on a CT chest on admission and showed-Positive for acute pulmonary embolism, including saddle pulmonary embolism. Patient has been hypoxic and at a clinic PCP visit the day prior to admission, she was found to be in the 80's per daughter's report. Now with bilateral crackles auscultated on exam each day since this event. She remains with oxygen needs above baseline. Plan: Supplemental O2 as needed, enoxoparin SQ therapy. VS monitoring and may consider chest x-ray in AM if condition does not improve. (2) Hypertension Impression: Patients latest blood pressure was noted to be 149/58 this AM. Plan: Continue to monitor and resumed HCTZ for adequate control. Qualifiers: (3) CVA, old, ataxia Impression: Patient had originally presented on previous admission with severe right sided weakness, now this is resolved, but remains with profound STM loss. Plan: Continue to prevent falls and continuity of care is essential. Frequent visits from daughter is beneficial. (4) Fall Impression: Patient had an unfortunate fall at her assisted living, likely due to increased hypoxia. She was seen in her PCP clinic the prior to her fall and per daughter , Jun, was noted to be "below normal pulse oximetry". Plan: Gait belt will be used for ambulation. Patient is at a high risk for falls. Patient continues on 2.5L nasal cannula, but does not require home O2. Qualifiers: Encounter type: initial encounter Qualified Code(s): W19.XXXA - Unspecified fall, initial encounter (5) Hypoxemia Impression: Patient has been hypoxic and at a clinic PCP visit the day prior to admission, she was found to be in the 80's. (per daughter's report). Plan: treat the cause-saddle PE with enoxaparin SQ, monitor VS. Patient continues to require 2.5L oxygen via nasal cannula, no home O2.
[2017-05-23] MEDS: LATANOPROST 0.005% OPHTH DROPS EACHEYE SCH (20:50)
[2017-05-23] MEDS: ATORVASTATIN 10 MG TABLET PO SCH (20:50)
[2017-05-24] MEDS: PANTOPRAZOLE 40 MG TABLET PO SCH (06:07)
[2017-05-24] MEDS: ENOXAPARIN 60 MG/0.6 ML SYRINGE SUBQ SCH ×2 (06:07→17:26)
[2017-05-24] MEDS: SODIUM CHLORIDE FLUSH 0.9% 10 ML SYRINGE IVP SCH ×3 (06:08→20:47)
--- NOTE | 2017-05-24 06:49 | PROVIDER PROGRESS NOTE ---
Subjective - Prog Note Date Prog Note Date: 05/24/17 Prog Note Time: 06:49 - Subjective Pt reports feeling: No change Subjective: Betty has no complaints, and cannot remember how she slept or what she ate this AM. She denies SOB, chest pain, N/V or a new cough. She does not appear hypoxic. Phoned daughterJey with a medical update and plans to test UA and do a chest x-ray, no other concerns except to stop statin that may be causing her lethargy. Current Medications - Current Medications Current Medications: Active Medications Acetaminophen (Tylenol) 650 mg PO Q4HR PRN PRN Reason: Pain 1 to 4 Last Admin: 05/20/17 18:23 Dose: 650 mg Atorvastatin Calcium (Lipitor) 20 mg PO QPM [facility] Last Admin: 05/23/17 20:50 Dose: 20 mg Calcium Carbonate/Glycine (Tums) 500 mg PO DAILY [facility] Last Admin: 05/22/17 09:13 Dose: 500 mg Enoxaparin Sodium (Lovenox) 60 mg SUBQ Q12H [facility] Last Admin: 05/24/17 06:07 Dose: 60 mg Hydrochlorothiazide (Hydrodiuril) 12.5 mg PO MoWeFr@0900 [facility] Last Admin: 05/23/17 10:10 Dose: 12.5 mg Labetalol HCl (Trandate) 100 mg PO BID [facility] Last Admin: 05/23/17 20:50 Dose: 100 mg Latanoprost (Xalatan Ophth Drops) 1 drops EACHEYE QPM [facility] Last Admin: 05/23/17 20:50 Dose: 1 drops Multivitamins (Theragran) 1 tab PO DAILY [facility] Last Admin: 05/23/17 10:04 Dose: 1 tab Ondansetron HCl (Zofran Odt) 4 mg TL Q6HR PRN PRN Reason: Nausea / Vomiting Oxycodone HCl (Roxicodone Oral Soln) 10 mg PO Q6H PRN PRN Reason: PAIN Last Admin: 05/22/17 05:27 Dose: 10 mg Pantoprazole Sodium (Protonix) 40 mg PO QDAC [facility] Last Admin: 05/24/17 06:07 Dose: 40 mg Polyethylene Glycol (Miralax) 17 gm PO DAILY [facility] Last Admin: 05/23/17 10:07 Dose: 17 gm Potassium Chloride (Micro-K) 10 meq PO DAILYWM [facility] Last Admin: 05/23/17 10:04 Dose: 10 meq Sodium Chloride (Normal Saline Flush 0.9%) 10 ml IVP PRN PRN PRN Reason: NEEDED PER PROVIDER ORDERS Last Admin: 05/22/17 09:14 Dose: 10 ml Sodium Chloride (Normal Saline Flush 0.9%) 10 ml IVP Q8HR [facility] Last Admin: 05/24/17 06:08 Dose: 10 ml Acetaminophen [Tylenol] 650 mg PO Q6H PRN 05/21/17 Aspirin [Adult Low Dose Aspirin EC] 81 mg PO DAILY 05/21/17 Labetalol HCl 100 mg PO BID 05/21/17 hydroCHLOROthiazide [Hydrodiuril] 12.5 mg PO MOWEFR 05/21/17 Objective - Vital Signs/Intake & Output Vital Signs: Vital Signs x48h Temp Pulse Resp BP Pulse Ox 05/23/17 23:46 37.2 C 68 16 160/72 H 98 Intake & Output: Intake & Output 05/21/17 05/22/17 05/23/17 05/24/17 23:59 23:59 23:59 23:59 Intake Total 3900 460 570 Output Total 1375 1650 250 250 Balance 2525 -1190 320 -250 - Objective General Appearance: positive: No acute distress, Lethargic Eyes Bilateral: positive: Normal inspection ENT: positive: ENT inspection nml, Pharynx nml, Dry mucous membranes Neck: positive: Nml inspection, Thyroid nml, No JVD, Trachea midline Respiratory: positive: Chest non-tender, No respiratory distress, Rhonchi ( crackles through out bilaterally.) Cardiovascular: positive: Regular rate & rhythm, No gallop, Irregularly irregular, Systolic murmur Peripheral Pulses: 2+ Radial (R), 2+ Radial (L) Abdomen: positive: Non-tender, No organomegaly, Nml bowel sounds, No distention Rectal: positive: Non-tender Back: positive: Nml inspection Skin: positive: Color nml, No rash, Warm, Dry Extremities: positive: Non-tender, Full ROM, Nml appearance Neurologic/Psychiatric: positive: Motor nml, Disoriented to place, Disoriented to time, Weakness, Sensory loss, Depressed mood/affect Reflexes: Bicep (R): 3+, Bicep (L): 3+ - Lab Results Fish Bones: 05/23/17 05:44 05/23/17 05:44 Other Labs: Lab Results x24hrs 05/23/17 Range/Units 05:44 WBC 5.6 (4.8-10.8) x10^3/uL RBC 3.10 L (4.20-5.40) 10^6/uL Hct 30.4 L (37.0-47.0) % MCV 98.0 (81.0-99.0) fL MCH 33.0 H (27.0-31.0) pg MCHC 33.7 (32.0-36.0) g/dL Plt Count 214 (130-450) 10^3/uL MPV 8.5 (7.9-10.8) fL Neut # 3.4 (1.5-6.6) 10^3/uL Lymph # 0.7 L (1.5-3.5) 10^3/uL Duval # 0.5 (0.0-1.0) 10^3/uL Eos # 0.1 (0.0-0.7) 10^3/uL Baso # 0.0 (0.0-0.1) 10^3/uL Absolute Nucleated RBC 0.00 x10^3/uL Nucleated RBC % 0.1 /100WBC - Diagnostic Imaging Diagnostic Imaging Results: positive: Prelim report reviewed Diagnostic Imaging Comments: Chest x-ray completed, but dictation pending: My opinion is: Enlarged heart, bilateral patchy infiltrates resembling left heart failure, dual lead cardiac pacemaker visualized. Assessment/Plan - Problem List (1) Saddle pulmonary embolus Impression: This was found on a CT chest on admission and showed-Positive for acute pulmonary embolism, including saddle pulmonary embolism. Patient has been hypoxic and at a clinic PCP visit the day prior to admission, she was found to be in the 80's per daughter's report. Now with bilateral crackles auscultated on exam each day since this event. She remains with oxygen needs above baseline. Plan: Supplemental O2 as needed, enoxoparin SQ therapy. Chest x-ray ordered, completed- and final dictation is pending. I can note patchy infiltrates bilaterally. (2) Hypertension Impression: Patients latest blood pressure was noted to be 149/58 this AM. Plan: Continue to monitor and resumed HCTZ for adequate control. Qualifiers: (3) CVA, old, ataxia Impression: Patient had originally presented on previous admission with severe right sided weakness, now this is resolved, but remains with profound STM loss. Plan: Continue to prevent falls and continuity of care is essential. Frequent visits from daughter is beneficial. (4) Fall Impression: Patient had an unfortunate fall at her assisted living, likely due to increased hypoxia. She was seen in her PCP clinic the prior to her fall and per daughter , Jey, was noted to be "below normal pulse oximetry". Plan: Gait belt will be used for ambulation. Patient is at a high risk for falls. Patient continues on 2.5L nasal cannula, with oxygen weaning trials per nursing, but does not require home O2. Qualifiers: Encounter type: initial encounter Qualified Code(s): W19.XXXA - Unspecified fall, initial encounter (5) Hypoxemia Impression: Staff has been attempting to wean patient, but Betty has been fatigued the past few days and noted to be sleepier than normal. Oxygen needs should continue to improve as PE resolves. Plan: Continue weaning trials and plan for oxygen as needed. (6) Fatigue Impression: After speaking to patient's daughter today regarding recent clinic visits, Jey states that MD decided to discontinue her statin due to increased fatigue and lethargy. Plan: I will discontinue statin and plan to start apixaban upon discharge to cover her for PE prophylaxis and CVA prevention.
[2017-05-24] MEDS: LABETALOL 100 MG TABLET PO SCH ×2 (08:32→20:46)
[2017-05-24] MEDS: POTASSIUM CHLORIDE 10 MEQ CAPSULE PO SCH (08:32)
[2017-05-24] MEDS: POLYETHYLENE GLYCOL 3350 17 GM PACKET PO SCH (08:33)
[2017-05-24] MEDS: CALCIUM CARBONATE CHEW 500 MG TABLET PO SCH (08:33)
[2017-05-24] MEDS: MULTIVITAMIN TABLET PO SCH (08:33)
[2017-05-24 11:59] LABS: BILIRUBIN,URINE NEGATIVE (NEGATIVE); PH,URINE 6.5 PH (5.0-7.5)
[2017-05-24 12:05] LABS: UR CULTURE IF IND NOT INDICATED; WBC,URINE 0-3 /HPF (0-5)
[2017-05-24] MEDS: LATANOPROST 0.005% OPHTH DROPS EACHEYE SCH (20:47)
--- NOTE | 2017-05-25 04:04 | XRAY Preliminary Report ---
Exam: XR CHEST 1 VIEW IMPRESSION: Mild CHF pattern. [facility] SITE ID: [id number]
--- NOTE | 2017-05-25 04:07 | XRAY Report ---
EXAM: CHEST RADIOGRAPHY EXAM DATE: 05/24/2017 12:07 PM. CLINICAL HISTORY: Shortness of breath and crackles COMPARISON: 05/20/2017 TECHNIQUE: 1 view. FINDINGS: Lungs/Pleura: No significant consolidation, effusion, or definite pneumothorax. Mediastinum: Mild enlargement of the cardiac silhouette and borderline pulmonary vascular congestion. Other: There is a left subclavian pacemaker device with the tips at the right atrium and right ventri daniela apex. IMPRESSION: Mild CHF pattern. [facility] Referring Provider Line: [phone] SITE ID: [id number]
[2017-05-25] MEDS: ENOXAPARIN 60 MG/0.6 ML SYRINGE SUBQ SCH ×2 (05:55→16:42)
[2017-05-25] MEDS: SODIUM CHLORIDE FLUSH 0.9% 10 ML SYRINGE IVP SCH ×3 (05:56→21:38)
[2017-05-25] MEDS: PANTOPRAZOLE 40 MG TABLET PO SCH (06:00)
[2017-05-25] MEDS: MULTIVITAMIN TABLET PO SCH (10:56)
[2017-05-25] MEDS: CALCIUM CARBONATE CHEW 500 MG TABLET PO SCH (10:57)
[2017-05-25] MEDS: LABETALOL 100 MG TABLET PO SCH (10:58)
[2017-05-25] MEDS: POLYETHYLENE GLYCOL 3350 17 GM PACKET PO SCH (11:02)
[2017-05-25] MEDS: POTASSIUM CHLORIDE 10 MEQ CAPSULE PO SCH (11:03)
[2017-05-25] MEDS: APIXABAN 2.5 MG TABLET PO SCH (18:17)
--- NOTE | 2017-05-25 19:45 | PROVIDER PROGRESS NOTE ---
Subjective - Prog Note Date Prog Note Date: 05/25/17 Prog Note Time: 07:00 - Subjective Pt reports feeling: No change Subjective: Betty states that she is feeling well. She had a friend visiting her. She denies SOB, chest pain, N/V or a new cough. She is still requiring 1L nasal cannula oxygen. Current Medications - Current Medications Current Medications: Active Medications Acetaminophen (Tylenol) 650 mg PO Q4HR PRN PRN Reason: Pain 1 to 4 Last Admin: 05/20/17 18:23 Dose: 650 mg Apixaban (Eliquis) 10 mg PO BID [facility] Stop: 06/01/17 09:01 Last Admin: 05/25/17 18:17 Dose: Not Given Apixaban (Eliquis) 5 mg PO BID [facility] Stop: 11/28/17 09:01 Calcium Carbonate/Glycine (Tums) 500 mg PO DAILY [facility] Last Admin: 05/25/17 10:57 Dose: 500 mg Hydrochlorothiazide (Hydrodiuril) 12.5 mg PO MoWeFr@0900 [facility] Last Admin: 05/23/17 10:10 Dose: 12.5 mg Labetalol HCl (Trandate) 50 mg PO DAILY [facility] Latanoprost (Xalatan Ophth Drops) 1 drops EACHEYE QPM [facility] Last Admin: 05/24/17 20:47 Dose: 1 drops Multivitamins (Theragran) 1 tab PO DAILY [facility] Last Admin: 05/25/17 10:56 Dose: 1 tab Ondansetron HCl (Zofran Odt) 4 mg TL Q6HR PRN PRN Reason: Nausea / Vomiting Oxycodone HCl (Roxicodone Oral Soln) 10 mg PO Q6H PRN PRN Reason: PAIN Last Admin: 05/22/17 05:27 Dose: 10 mg Pantoprazole Sodium (Protonix) 40 mg PO QDAC [facility] Last Admin: 05/25/17 06:00 Dose: 40 mg Polyethylene Glycol (Miralax) 17 gm PO DAILY [facility] Last Admin: 05/25/17 11:02 Dose: Not Given Potassium Chloride (Micro-K) 10 meq PO DAILYWM [facility] Last Admin: 05/25/17 11:03 Dose: 10 meq Sodium Chloride (Normal Saline Flush 0.9%) 10 ml IVP PRN PRN PRN Reason: NEEDED PER PROVIDER ORDERS Last Admin: 05/22/17 09:14 Dose: 10 ml Sodium Chloride (Normal Saline Flush 0.9%) 10 ml IVP Q8HR [facility] Last Admin: 05/25/17 13:34 Dose: 10 ml Acetaminophen [Tylenol] 650 mg PO Q6H PRN 05/21/17 Aspirin [Adult Low Dose Aspirin EC] 81 mg PO DAILY 05/21/17 Labetalol HCl 100 mg PO BID 05/21/17 hydroCHLOROthiazide [Hydrodiuril] 12.5 mg PO MOWEFR 05/21/17 Objective - Vital Signs/Intake & Output Reviewed Vital Signs: Yes Vital Signs: Vital Signs x48h Temp Pulse Resp BP Pulse Ox 05/25/17 15:23 36.6 C 66 18 145/55 H 95 05/25/17 12:35 36.5 C 66 18 132/54 H 93 Intake & Output: Intake & Output 05/22/17 05/23/17 05/24/17 05/25/17 23:59 23:59 23:59 23:59 Intake Total 460 570 930 960 Output Total 1650 250 850 350 Balance -1190 320 80 610 - Objective General Appearance: positive: No acute distress, Alert Eyes Bilateral: positive: Normal inspection ENT: positive: ENT inspection nml, Pharynx nml, No signs of dehydration Neck: positive: Nml inspection, Thyroid nml, No JVD, Trachea midline Respiratory: positive: Chest non-tender, No respiratory distress, Rhonchi Cardiovascular: positive: Regular rate & rhythm, Systolic murmur Peripheral Pulses: 2+ Radial (R), 2+ Radial (L) Abdomen: positive: Non-tender, No organomegaly, Nml bowel sounds, No distention Back: positive: Nml inspection Skin: positive: Color nml, No rash, Warm, Dry Extremities: positive: Non-tender, Full ROM, Nml appearance, Pedal edema (mild) Neurologic/Psychiatric: positive: Oriented x3, Motor nml, Sensation nml, Depressed mood/affect Reflexes: Bicep (R): 3+, Bicep (L): 3+ - Lab Results Fish Bones: 05/23/17 05:44 05/23/17 05:44 - Diagnostic Imaging Diagnostic Imaging Results: positive: Final report reviewed Assessment/Plan - Problem List (1) Saddle pulmonary embolus Impression: This was found on a CT chest on admission and showed-Positive for acute pulmonary embolism, including saddle pulmonary embolism. Patient has been hypoxic and at a clinic PCP visit the day prior to admission, she was found to be in the 80's per daughter's report. Now with bilateral crackles auscultated on exam each day since this event. She remains with oxygen needs above baseline. Plan: Supplemental O2 as needed, enoxoparin SQ therapy. Chest x-ray ordered, completed and found to be no acute changes. Enoxaparin SQ injections changed to apixaban starting 05/26/17 x 7 days loading dose, then decreased to therapeutic dose for a duration of at least 6 months. (2) Hypertension Impression: Patients latest blood pressure was noted to be 132/54 this AM. Plan: Continue to monitor and resumed HCTZ for adequate control. Labatelol is being weaned down with close monitoring. Qualifiers: (3) CVA, old, ataxia Impression: Patient had originally presented on previous admission with severe right sided weakness, now this is resolved, but remains with profound STM loss. Plan: Continue to prevent falls and continuity of care is essential. Frequent visits from daughter and friends are beneficial. (4) Fall Impression: Patient had an unfortunate fall at her assisted living, likely due to increased hypoxia. She was seen in her PCP clinic the prior to her fall and per daughter , Jey, was noted to be "below normal pulse oximetry". Plan: Gait belt will be used for ambulation. Patient is at a high risk for falls. Patient continues on 2.5L nasal cannula, with oxygen weaning trials per nursing, but does not require home O2. Qualifiers: Encounter type: initial encounter Qualified Code(s): W19.XXXA - Unspecified fall, initial encounter (5) Hypoxemia Impression: Staff has been attempting to wean patient, but Betty has been fatigued the past few days and noted to be sleepier than normal. Oxygen needs should continue to improve as PE resolves. Plan: Continue weaning trials and plan for oxygen as needed. Patient down to 1L today. (6) Fatigue Impression: After speaking to patient's daughter today regarding recent clinic visits, Jey states that MD decided to discontinue her statin due to increased fatigue and lethargy. Plan: I will discontinue statin and plan changed enoxaparin to apixaban for upcoming discharge to cover her for PE prophylaxis and CVA prevention. Labetalol has been weaned down to a small daily dose.
[2017-05-25] MEDS: LATANOPROST 0.005% OPHTH DROPS EACHEYE SCH (21:38)
--- NOTE | 2017-05-25 22:48 | DISCHARGE SUMMARY ---
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 Patient has been hypoxic and at a clinic PCP visit the day prior to admission, she was found to be in the 80's per daughter's report. Now with bilateral crackles auscultated on exam each day since this event. She remains with oxygen needs above baseline. Plan: Supplemental O2 as needed, enoxoparin SQ therapy. Chest x-ray ordered, completed and found to be no acute changes. Enoxaparin SQ injections changed to apixaban starting 05/26/17 x 7 days loading dose, then decreased to therapeutic dose for a duration of at least 6 months. (2) Hypertension Impression: Patients latest blood pressure was noted to be 132/54 this AM. Plan: Continue to monitor and resumed HCTZ for adequate control. Labatelol is being weaned down with close monitoring. Patient has been stable according to telemetry with more alertness noted during the day. (3) CVA, old, ataxia Impression: Patient had originally presented on previous admission with severe right sided weakness, now this is resolved, but remains with profound STM loss. Plan: Continue to prevent falls and continuity of care is essential. Frequent visits from daughter and friends are beneficial. (4) Fall Impression: Patient had an unfortunate fall at her assisted living, likely due to increased hypoxia. She was seen in her PCP clinic the prior to her fall and per daughter , Jun, was noted to be "below normal pulse oximetry". Patient has finally been weaned off oxygen and passed her walking saturation test yesterday. Plan: Gait belt will be used for ambulation with fall precautions. (5) Hypoxemia Impression: Staff has been attempting to wean patient, but Betty has been fatigued the past few days and noted to be sleepier than normal. Oxygen needs should continue to improve as PE resolves. Patient has finally been weaned off oxygen and passed her walking saturation test yesterday. Plan: Patient remains on room air. (6) Fatigue Impression: After speaking to patient's daughter today regarding recent clinic visits, Jey states that MD decided to discontinue her statin due to increased fatigue and lethargy. Plan: I will discontinue statin and plan changed enoxaparin to apixaban for upcoming discharge to cover her for PE prophylaxis and CVA prevention. Labetalol has been weaned down to a small daily dose. - HPI History of Present Illness: Betty Aguilera is an 87 year old female with a PMX of recent stroke with improved residual deficits-on aspirin, HTN, glaucoma, incontinence, and status post pacemaker, . She was seen at her PCP clinic yesterday and was noted to have decreased pulse oximetries. She has now returned to her assisted living after completing her rehab at [facility]. Today she was getting ready to go out for an early dinner and slipped and fell in the bathroom at the assisted living center, hit her head, chest wall on the right side and has moderate pain. Per daughter's report her mother pushed life alert for help. After arriving in the ED, she was found to have a saddle PE. She will be admitted to the hospitalist service for proper anticoagulation therapy, and pain management. - HOSPITAL COURSE Hospital Course: Betty was admitted for hypoxia and a CT scan revealed a saddle PE. She was treated for 5 days with enoxaparin and changed to apixaban on day 6 with an expected theraputic duration of 6 months. During her hospital stay she remained on oxygen for both the saddle PE and possible medication causes. Medications were slowly weaned to a tolerable dose. A chest x-ray and UA were completed that were negative. Patient will go back to her assisted living today if transportation arrangements can be made. - ALLERGIES Allergies/Adverse Reactions: Allergies Allergy/AdvReac Type Severity Reaction Status Date / Time amlodipine Allergy Unknown Verified 02/20/17 12:02 - MEDICATIONS Home Medications: Ambulatory Orders Medication Instructions Recorded Confirmed Latanoprost 0.005% Ophth Drops 1 drops EACHEYE QPM #1 04/25/17 05/20/17 [Xalatan Ophth Drops] Multivitamin [Multivitamins] 1 each PO DAILY #30 capsule 04/25/17 05/20/17 Potassium Chloride [K-Dur] 10 meq PO DAILYWM #30 tablet 04/25/17 05/20/17 Acetaminophen [Tylenol] 650 mg PO Q6H PRN #30 05/26/17 05/21/17 Apixaban [Eliquis] 10 mg PO BID 7 Days #13 tablet 05/26/17 Aspirin [Adult Low Dose Aspirin EC] 81 mg PO DAILY #30 05/26/17 05/21/17 Calcium Carbonate [Tums (Calcium 500 mg PO DAILY #30 tablet 05/26/17 Carbonate 500mg)] Labetalol [Trandate] 50 mg PO DAILY #30 tablet 05/26/17 hydroCHLOROthiazide [Hydrodiuril] 12.5 mg PO MOWEFR #30 05/26/17 05/21/17 Apixaban [Eliquis] 5 mg PO BID #30 tablet 06/02/17 - PHYSICAL EXAM AT DISCHARGE General Appearance: positive: No acute distress, Alert Eyes Bilateral: positive: Normal inspection, PERRL ENT: positive: ENT inspection nml, Pharynx nml, No signs of dehydration Neck: positive: Nml inspection, Thyroid nml, No JVD, Trachea midline Respiratory: positive: Chest non-tender, No respiratory distress, Rhonchi ( crackles noted on every exam.) Cardiovascular: positive: Regular rate & rhythm, No gallop, Systolic murmur Peripheral Pulses: positive: 2+ Abdomen: positive: Non-tender, No organomegaly, Nml bowel sounds, No distention Back: positive: Nml inspection Skin: positive: Color nml, No rash, Warm, Dry Extremities: positive: Non-tender, Full ROM, Nml appearance, Pedal edema (mild, likely dependent.) Neurologic/Psychiatric: positive: Disoriented to time, Weakness, Sensory loss, Depressed mood/affect Reflexes: Bicep (R): 3+, Bicep (L): 3+ - LABS Result Diagrams: 05/26/17 05:38 05/26/17 05:38 Other Lab Results: A UA was obtained on 05/24/17 due to increased lethargy, normal, so no culture sent. - DIAGNOSTIC IMAGING Diagnostic Imaging Results: Final report reviewed Diagnostic Imaging Results Comments: Cervical spine w/o contrast on admission: IMPRESSION: 1. No acute cervical spine fracture or listhesis. 2. Bone island in the posterior aspect of C7 on the left. 3. Bony fusion of the left and right facets at L3-L4. Head CT: IMPRESSION: 1. No acute intracranial abnormality. 2. Encephalomalacia in the left frontal lobe and right parietal lobe are redemonstrated and similar to the prior examination. CTA chest: IMPRESSION: 1. Positive for acute pulmonary embolism, including saddle pulmonary embolism. 2. Mildly dilated right ventricle could be a sign of right ventricular strain. 3. Clear lungs. 4. No definite fracture identified. Chest x-ray completed due to increased lethargy on 05/24/17: IMPRESSION: Mild CHF pattern, without infiltrates or pneumonia. - FOLLOW UP Follow Up: Recommend PCP follow up in 3-5 days. Prescription for raised toilet seat to prevent falls at assisted living. - TIME SPENT Time Spent in Discharge (Minutes): 60
[2017-05-26 06:07] LABS: BASOPHILS % (AUTO) 0.5 %; EOSINOPHILS # (AUTO) 0.2 10^3/uL (0.0-0.7); EOSINOPHILS % (AUTO) 4.2 %; HCT - HEMATOCRIT 31.4 % (37.0-47.0); HGB - HEMOGLOBIN 11.1 g/dL (12.0-16.0); LYMPHOCYTES # (AUTO) 0.9 10^3/uL (1.5-3.5); MEAN CORPUSCULAR HEMOGLOBIN 37.2 pg (27.0-31.0); MEAN CORPUSCULAR HGB CONC 35.4 g/dL (32.0-36.0); MEAN PLATELET VOLUME 7.5 fL (7.9-10.8); MONOCYTES # (AUTO) 0.7 10^3/uL (0.0-1.0); MONOCYTES % (AUTO) 14.9 %; NEUTROPHILS # (AUTO) 2.7 10^3/uL (1.5-6.6); NEUTROPHILS % (AUTO) 59.4 %; NUCLEATED RED BLOOD CELLS AUTO 0.1 /100WBC; RED BLOOD COUNT 2.99 10^6/uL (4.20-5.40); RED CELL DISTRIBUTION WIDTH 15.2 % (12.0-15.0); UNCORRECTED WHITE BLOOD COUNT 4.5 x10^3/uL; WHITE BLOOD COUNT 4.5 x10^3/uL (4.8-10.8)
[2017-05-26 06:10] LABS: CALCIUM 8.3 mg/dL (8.5-10.3); CREATININE 0.7 mg/dL (0.4-1.0); POTASSIUM 4.2 mmol/L (3.5-5.0)
[2017-05-26 06:25] VITALS: BP 165/62
[2017-05-26] MEDS: SODIUM CHLORIDE FLUSH 0.9% 10 ML SYRINGE IVP SCH (06:25)
[2017-05-26] MEDS: PANTOPRAZOLE 40 MG TABLET PO SCH (06:25)
[2017-05-26] MEDS: POLYETHYLENE GLYCOL 3350 17 GM PACKET PO SCH (08:19)
[2017-05-26] MEDS: CALCIUM CARBONATE CHEW 500 MG TABLET PO SCH (08:19)
[2017-05-26] MEDS: hydroCHLOROthiazide 25 MG TABLET PO SCH (08:19)
[2017-05-26] MEDS: MULTIVITAMIN TABLET PO SCH (08:19)
[2017-05-26] MEDS: POTASSIUM CHLORIDE 10 MEQ CAPSULE PO SCH (08:19)
[2017-05-26] MEDS: APIXABAN 2.5 MG TABLET PO SCH (08:19)
[2017-05-26] MEDS ORDERED: LABETALOL 100 MG TABLET PO SCH (09:00)
--- NOTE | 2017-05-26 10:33 | Discharge Plan ---
Discharge Plan Disposition: 03 SNF DC/Xfer Condition: Good Prescriptions: Apixaban [Eliquis] 10 mg PO BID 7 Days #13 tablet Apixaban [Eliquis] 5 mg PO BID #30 tablet Labetalol [Trandate] 50 mg PO DAILY #30 tablet Shower Restrictions: No Driving Restrictions: No Weight Bearing: Full Weight Additional Instructions or Follow Up instructions: Please see SNF/discharge plan-duplicate to this. No Smoking: If you smoke, Please STOP! Call for help. Follow-up with: Elver Francisco MD [Primary Care Provider] -
--- NOTE | 2017-05-26 11:05 | Discharge Plan ---
"Discharge Plan for SNF / [facility] - DC Plan and Transition Orders Disposition: 03 SNF DC/Xfer Condition: Good SNF Transition Orders: Admit to: [facility] under the care of Elver Francisco Discharge Diagnosis: Saddle pulmonary emboli, hypoxia. Medicare Certification: I certify that [facility] care is medically necessary on a continuing basis for any of the conditions for which she/he is receiving care during hospitalization. Notify PCP of admission and forward orders to primary provider for signature. Weight on admission and weekly. Call PCP immediately if weight increases by 4 pounds or if patient develops dyspnea, chest pain/tightness or edema. House Bowel Program: yes If no BM after 2 days, nurse may give M.O.M. 30ml PO PRN and /or ducolax Supp 1 LA and /or GABRIELLA 250mg P.O., and/or senna 1-2 tabs PO. On day 3 nurse may give repeat above order until residents constipation is resolved. Immunizations: Annual Influenza Vaccine: yes. (between Feb 28 and September 27.) Unless allergy or already given Two-Step PPD: yes per [facility] [id number] or appropriate documentation of approved exceptions Treatments & Other Orders: Look for signs of bleeding due to new antiplatelet/ anticoagulant medication such as bleeding gums, bloody stool, bloody urine, or hematomas more than usual. PT/OT/speech therapies if needed as per previous plan of facility. Oxygen Orders: 1-2L oxygen via nasal cannula to keep oxygen greater than 90%. Lab Tests or X-Rays Orders: Not indicated. Orthopedic Orders: N/A. Medications: PLEASE REFER TO THE DISCHARGE MEDICATION LIST. Insulin Orders? no Diagnosis: Diabetes Initiate hypo and hyperglycemia protocols for BG <70 and BG >375. May check BG prn for signs/symptoms of dysglycemia. Frequency of BG checks: Not diabetic/not indicated. Basal Insulin: Lantus 100 units / ml inject subq as follows: Other: Correction Insulin: - Select the type of insulin below Choose: Novolog/[id number] units /ml insulin inject subq per orders indicate below LOW DOSE MODERATE DOSE MODERATE/HIGH DOSE HIGH DOSE GB UNITS GB UNITS GB UNITS GB UNITS 61-140 0 UNITS 61-140 0 UNITS 61-140 0 UNITS 61-140 0 UNITS 141-175 1 UNITS 141-175 1 UNITS 141-175 2 UNITS 141-175 3 UNITS 176-225 2 UNITS 176-225 3 UNITS 176-225 4 UNITS 176-225 5 UNITS 226-275 3 UNITS 226-275 5 UNITS 226-275 6 UNITS 226-275 7 UNITS 276-325 4 UNITS 276-325 7 UNITS 276-325 8 UNITS 276-325 9 UNITS 326-375 5 UNITS 326-375 9 UNITS 326-375 10 UNITS 326-375 11 UNITS >375 CONTACT MD >375 CONTACT MD >375 CONTACT MD >375 CONTACT MD Custom Dosing: Choose: None/Novolog/Humalog 100 units/ml Insulin inject subq as follows: GB Units 61-140 Units 141-175 Units 176-225 Units 226-275 Units 276-325 Units 326-375 Units >375 Contact MD Allergies and Adverse Reactions: Allergies Allergy/AdvReac Type Severity Reaction Status Date / Time amlodipine Allergy Unknown Verified 02/20/17 12:02 - Medications New Prescriptions: Apixaban [Eliquis] 10 mg PO BID 7 Days #13 tablet Apixaban [Eliquis] 5 mg PO BID #30 tablet Labetalol [Trandate] 50 mg PO DAILY #30 tablet - Diet Type: Geriatric Texture: Regular Liquids: Thin May have monthly special meal: Yes - Therapies | Activity Therapy: Evaluation | Treat if indicated: Speech, PT, OT, Swallowing / ST Rehabilitation Potential: Maintain present ADL Functional Activity: No Restrictions Weight Bearing: Full Weight Assistance Devices: Wheelchair"
[2017-06-01] MEDS ORDERED: APIXABAN 2.5 MG TABLET PO SCH (21:00)
== END 2017-05-26 12:50 | DRG 176 ==
LOC: EDUNIT# → ED 13:47 → MS2 16:59
PROVIDERS: ADMIT Nurse Practitioner; ATTEND Nurse Practitioner
DX: S09.90XA Unspecified injury of head, initial encounter (principal); I26.92 Saddle embolus of pulmonary artery without acute cor pulmonale; W01.0XXA Fall on same level from slipping, tripping and stumbling without subsequent striking against object, initial encounter; Y93.E8 Activity, other personal hygiene; Y92.091 Bathroom in other non-institutional residence as the place of occurrence of the external cause; I69.993 Ataxia following unspecified cerebrovascular disease; R32 Unspecified urinary incontinence; I11.0 Hypertensive heart disease with heart failure; H40.9 Unspecified glaucoma; I50.9 Heart failure, unspecified; R53.83 Other fatigue; Z79.82 Long term (current) use of aspirin; Z79.899 Other long term (current) drug therapy; Z95.0 Presence of cardiac pacemaker; Z91.81 History of falling; Z99.81 Dependence on supplemental oxygen
CPT/HCPCS: 36415; 70450; 71010; 71275; 72125; 80048; 80053; 81001; 83690; 85025; 87086; 93005; 96372; 99284; 99285

== ENCOUNTER 2018-01-15 14:57 | Emergency (ER) | payer MEDICARE, OTHER ==
[2018-01-15 16:36] LABS: BILIRUBIN,URINE NEGATIVE (NEGATIVE); GLUCOSE, URINE (UA) NEGATIVE (NEGATIVE); KETONES,URINE (UA) NEGATIVE (NEGATIVE); LEUKOCYTE ESTERASE, URINE NEGATIVE (NEGATIVE); NITRITE,URINE NEGATIVE (NEGATIVE); OCCULT BLOOD,URINE NEGATIVE (NEGATIVE); PH,URINE 5.5 PH (5.0-7.5); PROTEIN,URINE NEGATIVE (NEGATIVE); UROBILINOGEN,URINE 0.2 (NORMAL) E.U./dL (NORMAL)
[2018-01-15 16:38] LABS: CLARITY,URINE CLEAR (CLEAR)
[2018-01-15 18:51] LABS: BASOPHILS % (AUTO) 0.8 %; EOSINOPHILS # (AUTO) 0.3 10^3/uL (0.0-0.7); EOSINOPHILS % (AUTO) 6.3 %; HGB - HEMOGLOBIN 13.1 g/dL (12.0-16.0); LYMPHOCYTES # (AUTO) 1.6 10^3/uL (1.5-3.5); LYMPHOCYTES % (AUTO) 31.3 %; MEAN CORPUSCULAR HEMOGLOBIN 33.1 pg (27.0-31.0); MEAN CORPUSCULAR HGB CONC 33.6 g/dL (32.0-36.0); MEAN CORPUSCULAR VOLUME 98.3 fL (81.0-99.0); MEAN PLATELET VOLUME 8.8 fL (7.9-10.8); MONOCYTES # (AUTO) 0.5 10^3/uL (0.0-1.0); MONOCYTES % (AUTO) 10.6 %; NEUTROPHILS # (AUTO) 2.6 10^3/uL (1.5-6.6); PLT - PLATELET COUNT 174 10^3/uL (130-450); RED BLOOD COUNT 3.95 10^6/uL (4.20-5.40); WHITE BLOOD COUNT 5.2 x10^3/uL (4.8-10.8)
[2018-01-15 19:01] LABS: MUDS CUTOFF CONCENTRATIONS CUTOFF CONC BELOW:
[2018-01-15 19:07] LABS: ALBUMIN 3.8 g/dL (3.2-5.5); ALBUMIN/GLOBULIN RATIO 1.5 (1.0-2.2); ALKALINE PHOSPHATASE 57 IU/L (42-121); ALT ALANINE AMINOTRANSFERASE 13 IU/L (10-60); AST ASPARTATE AMINOTRANSFERASE 23 IU/L (10-42); BILIRUBIN,TOTAL 0.6 mg/dL (0.2-1.0); BUN - BLOOD UREA NITROGEN 28 mg/dL (6-20); CALCIUM 9.1 mg/dL (8.5-10.3); CARBON DIOXIDE - CO2 28 mmol/L (21-32); CHLORIDE 103 mmol/L (101-111); CREATININE 0.7 mg/dL (0.4-1.0); GFR - MDRD 79 (>89); GLUCOSE 104 mg/dL (70-100); LIPASE 32 U/L (22-51); MAGNESIUM 2.1 mg/dL (1.7-2.8); SALICYLATE < 6.0 mg/dL; SODIUM 139 mmol/L (135-145); TOTAL PROTEIN 6.4 g/dL (6.7-8.2)
--- NOTE | 2018-01-15 19:26 | ED Physician Documentation ---
History of Present Illness - Stated complaint Stated Complaint: CONFUSION,WEAKNESS,FATIGUE,HIGH BP - Chief complaint Chief Complaint: Neuro - History obtained from History obtained from: Patient, Family - Additonal information Additional information: 87-year-old female had an episode today of confusion and general weakness according to the staff at her nursing facility. The patient's daughter now reports that the patient appears to be at her neurologic baseline and the patient denied any focal weakness, difficulty with speech, headache, neck pain or sensory changes. No specific triggering factors. Symptoms are described as moderate. No specific relieving factors. Review of Systems Constitutional: denies: Fever, Chills Eyes: denies: Discharge Ears: denies: Drainage/discharge Nose: denies: Congestion Throat: denies: Sore throat Cardiac: denies: Chest pain / pressure Respiratory: denies: Dyspnea GI: denies: Abdominal Pain : denies: Dysuria Skin: denies: Laceration (s) Musculoskeletal: denies: Neck pain Neurologic: reports: Generalized weakness, Confused. denies: Focal weakness, Numbness, Syncope, Unresponsive, Headache Immunocompromised: denies: Chemotherapy PD PAST MEDICAL HISTORY - Past Medical History Past Medical History: Yes Cardiovascular: Pulmonary embolism, Other Respiratory: None Neuro: TIA Endocrine/Autoimmune: None GI: None CATHOLIC PRIEST: None : Incontinence HEENT: Glaucoma Psych: None Musculoskeletal: None Derm: None - Past Surgical History Past Surgical History: Yes Cardiovascular: Pacemaker HEENT: Cataracts - Present Medications Home Medications: Ambulatory Orders Medication Instructions Recorded Confirmed Latanoprost 0.005% Ophth Drops 1 drops EACHEYE QPM #1 04/25/17 05/20/17 [Xalatan Ophth Drops] Multivitamin [Multivitamins] 1 each PO DAILY #30 capsule 04/25/17 05/20/17 Potassium Chloride [K-Dur] 10 meq PO DAILYWM #30 tablet 04/25/17 05/20/17 Acetaminophen [Tylenol] 650 mg PO Q6H PRN #30 05/26/17 05/21/17 Aspirin [Adult Low Dose Aspirin EC] 81 mg PO DAILY #30 05/26/17 05/21/17 Calcium Carbonate [Tums (Calcium 500 mg PO DAILY #30 tablet 05/26/17 Carbonate 500mg)] Labetalol [Trandate] 50 mg PO DAILY #30 tablet 11/27/17 hydroCHLOROthiazide [Hydrodiuril] 12.5 mg PO MOWEFR #30 05/26/17 05/21/17 Apixaban [Eliquis] 5 mg PO BID #30 tablet 06/02/17 - Allergies Allergies/Adverse Reactions: Allergies Allergy/AdvReac Type Severity Reaction Status Date / Time amlodipine Allergy Unknown Verified 01/15/18 15:08 - Social History Does the pt smoke?: No Smoking Status: Never smoker Does the pt drink ETOH?: Yes Does the pt have substance abuse?: No - Immunizations Immunizations are current?: Yes - POLST POLST Status: DNR PD ED PE NORMAL - General General: Alert and oriented X 3, No acute distress, Well developed/nourished - HEENT HEENT: Atraumatic, PERRL, EOMI, Ears normal - Neck Neck: Supple, no meningeal sign - Cardiac Cardiac: RRR, Strong equal pulses - Respiratory Respiratory: No respiratory distress, Clear bilaterally - Abdomen Abdomen: Soft, Non tender - Derm Derm: Normal color - Extremities Extremities: No deformity, Normal ROM s pain - Neuro Neuro: Alert and oriented X 3, manager advertising 2-12 intact, No motor deficit, No sensory deficit, Normal speech, Other (The face is symmetric, no facial droop, tongue is midline, sensation light touch in the face, upper extremities and lower extremities is normal, negative pronator drift, equal child specialist strength. The speech is clear. The patient shows no evidence of a confusion presently) - Psych Psych: Normal mood Results - Vitals Vitals: Vital Signs - 24 hr 01/15/18 01/15/18 01/15/18 15:06 16:12 17:59 Temperature 36.8 C 36.2 C L 36.3 C L Heart Rate 63 60 64 Respiratory 16 16 14 Rate Blood Pressure 148/64 H 157/74 H 154/62 H O2 Saturation 92 95 99 01/15/18 20:04 Temperature 36.4 C L Heart Rate 65 Respiratory 17 Rate Blood Pressure 183/78 H O2 Saturation 92 Oxygen O2 Source Room air - EKG (time done) 15: 17 Rate: Rate (enter#) Other comments: Other comments (Atrial sensed and ventricular paced at 63 beats a minute) - Labs Labs: Laboratory Tests 01/15/18 01/15/18 01/15/18 14:25 14:25 18:40 WBC 5.2 RBC 3.95 L Hgb 13.1 Hct 38.8 MCV 98.3 MCH 33.1 H MCHC 33.6 RDW 15.0 Plt Count 174 MPV 8.8 Neut # (Auto) 2.6 Lymph # (Auto) 1.6 [place] # (Auto) 0.5 Eos # (Auto) 0.3 Baso # (Auto) 0.0 Absolute Nucleated RBC 0.00 Nucleated RBC % 0.0 Sodium Potassium Chloride Carbon Dioxide Anion Gap BUN Creatinine Estimated GFR (MDRD) Glucose Calcium Magnesium Total Bilirubin AST ALT Alkaline Phosphatase Troponin I Total Protein Albumin Globulin Albumin/Globulin Ratio Lipase Urine Color YELLOW Urine Clarity CLEAR Urine pH 5.5 Ur Specific [place] >=1.030 H Urine Protein NEGATIVE Urine Glucose (UA) NEGATIVE Urine Ketones NEGATIVE Urine Occult Blood NEGATIVE Urine Nitrite NEGATIVE Urine Bilirubin NEGATIVE Urine Urobilinogen 0.2 (NORMAL) Ur Leukocyte Esterase NEGATIVE Ur Microscopic Review NOT INDICATED Urine Culture Comments NOT INDICATED Salicylates Urine Opiates Screen NEGATIVE Ur Oxycodone Screen NEGATIVE Urine Methadone Screen NEGATIVE Ur Propoxyphene Screen NEGATIVE Acetaminophen Ur Barbiturates Screen NEGATIVE Ur Tricyclics Screen NEGATIVE Ur Phencyclidine Scrn NEGATIVE Ur Amphetamine Screen NEGATIVE U Methamphetamines Scrn NEGATIVE U Benzodiazepines Scrn NEGATIVE Urine Cocaine Screen NEGATIVE U Cannabinoids Screen NEGATIVE 01/15/18 01/15/18 18:40 18:40 WBC RBC Hgb Hct MCV MCH MCHC RDW Plt Count MPV Neut # (Auto) Lymph # (Auto) [place] # (Auto) Eos # (Auto) Baso # (Auto) Absolute Nucleated RBC Nucleated RBC % Sodium 139 Potassium 3.9 Chloride 103 Carbon Dioxide 28 Anion Gap 8.0 BUN 28 H Creatinine 0.7 Estimated GFR (MDRD) 79 L Glucose 104 H Calcium 9.1 Magnesium 2.1 Total Bilirubin 0.6 AST 23 ALT 13 Alkaline Phosphatase 57 Troponin I < 0.04 Total Protein 6.4 L Albumin 3.8 Globulin 2.6 Albumin/Globulin Ratio 1.5 Lipase 32 Urine Color Urine Clarity Urine pH Ur Specific [place] Urine Protein Urine Glucose (UA) Urine Ketones Urine Occult Blood Urine Nitrite Urine Bilirubin Urine Urobilinogen Ur Leukocyte Esterase Ur Microscopic Review Urine Culture Comments Salicylates < 6.0 Urine Opiates Screen Ur Oxycodone Screen Urine Methadone Screen Ur Propoxyphene Screen Acetaminophen < 10 L Ur Barbiturates Screen Ur Tricyclics Screen Ur Phencyclidine Scrn Ur Amphetamine Screen U Methamphetamines Scrn U Benzodiazepines Scrn Urine Cocaine Screen U Cannabinoids Screen - Rads (name of study) CT had Radiology: Final report received, See rad report (Impression: 1. No acute intracranial abnormality 2. 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 The patient is requesting discharge home, the patient appears to be appropriate at present for discharge and the patient's daughter is comfortable with this plan. The patient's workup does not reveal clear etiology for the source of today's episode. I advised that the patient should follow-up closely with primary care and will possibly need an outpatient MRI. The patient and family understand and agree. I discussed warning signs and recommended returning to the emergency department immediately for worsening or concerns. - Sepsis Event Vital Signs: Vital Signs - 24 hr 01/15/18 01/15/18 01/15/18 15:06 16:12 17:59 Temperature 36.8 C 36.2 C L 36.3 C L Heart Rate 63 60 64 Respiratory 16 16 14 Rate Blood Pressure 148/64 H 157/74 H 154/62 H O2 Saturation 92 95 99 01/15/18 20:04 Temperature 36.4 C L Heart Rate 65 Respiratory 17 Rate Blood Pressure 183/78 H O2 Saturation 92 Oxygen O2 Source Room air Departure - Departure Disposition: 01 Home, Self Care Clinical Impression: Acute confusional state, Weakness Condition: Good Instructions: ED Confusion, ED Weakness [facility] Follow-Up: Alexandro Ramires MD [Primary Care Provider] - Within 3 Days Comments: Please return to the emergency department for worsening symptoms or concerns
[2018-01-15 19:38] LABS: ACETAMINOPHEN < 10 ug/mL (10-30)
[2018-01-15 19:49] LABS: AMPHETAMINE SCREEN,URINE NEGATIVE (NEGATIVE); BENZODIAZEPINES SCREEN, URINE NEGATIVE (NEGATIVE); COCAINE SCREEN URINE NEGATIVE (NEGATIVE); METHADONE SCREEN, URINE NEGATIVE (NEGATIVE); METHAMPHETAMINES SCREEN, URINE NEGATIVE (NEGATIVE); OPIATE SCREEN, URINE NEGATIVE (NEGATIVE); OXYCODONE SCREEN, URINE NEGATIVE (NEGATIVE); PROPOXYPHENE SCREEN, URINE NEGATIVE (NEGATIVE); TRICYCLIC ANTIDEPRESSANT,URINE NEGATIVE (NEGATIVE)
--- NOTE | 2018-01-15 19:57 | CT Report ---
Procedure Date: 01/15/2018 Accession Number: [id number] / [id number] Procedure: CT - Head W/O CPT Code: FULL RESULT: EXAM: CT HEAD EXAM DATE: 01/15/2018 07:28 PM. CLINICAL HISTORY: Confusion. COMPARISON: CT head without contrast 05/20/2017. TECHNIQUE: Multiaxial CT images were obtained from the foramen magnum to the vertex. Reformats: Coronal. IV contrast: None. In accordance with CT protocol optimization, one or more of the following dose reduction techniques were utilized for this exam: automated exposure control, adjustment of mA and/or KV based on patient size, or use of iterative reconstructive technique. FINDINGS: Parenchyma: No intraparenchymal hemorrhage. No mass effect, midline shift or evidence of a mass. Again noted are remote infarcts with encephalomalacia involving the left frontal lobe and right parietal lobe. Old probable lacunar infarct again noted in the region of the left caudate head. No evidence of acute cortical infarct. Diffuse chronic microangiopathic white matter changes again noted. Extraaxial Spaces: Normal for age. No subdural or epidural collections identified. Ventricles: Normal in size and position. Sinuses and Orbits: Imaged paranasal sinuses, orbits, and mastoids show no significant abnormality. Bones: No evidence of fracture or calvarial defect. Other: None. IMPRESSION: 1. No acute intracranial abnormality. 2. 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 RADIA
[2018-01-15 20:05] VITALS: BP 183/78
== END 2018-01-15 20:48 | disposition home or self-care (01) ==
LOC: ED 14:57
DX: R41.0 Disorientation, unspecified (principal); R53.1 Weakness; R94.31 Abnormal electrocardiogram [ECG] [EKG]; Z86.711 Personal history of pulmonary embolism; Z86.73 Personal history of transient ischemic attack (TIA), and cerebral infarction without residual deficits; Z79.82 Long term (current) use of aspirin
CPT/HCPCS: 36415; 70450; 80053; 80306; 80307; 81003; 83690; 83735; 84484; 85025; 93005; 99283; 99284; G0480; 80329; 81001; 87086

== ENCOUNTER 2018-08-02 12:36 | Outpatient (CLI) | payer MEDICARE, OTHER | END 2018-08-02 12:37 | disposition critical access hospital (66) | LOC: EMS 12:36 | PROVIDERS: ATTEND Surgery | DX: R06.02 Shortness of breath (principal) | CPT/HCPCS: A0425; A0429 ==

== ENCOUNTER 2018-08-02 12:54 | Inpatient (IN) | payer MEDICARE, OTHER ==
[2018-08-02 13:31] LABS: VBG PCO2 44.5 mmHg (41-51); VBG PH 7.417 (7.31-7.41); VBG PO2 61.6 mmHg (25-47); VBG TOTAL CO2 29.4 mmol/L (24-29)
[2018-08-02 13:32] LABS: BASOPHILS % (AUTO) 0.6 %; EOSINOPHILS # (AUTO) 0.2 10^3/uL (0.0-0.7); EOSINOPHILS % (AUTO) 3.1 %; HGB - HEMOGLOBIN 12.3 g/dL (12.0-16.0); LYMPHOCYTES # (AUTO) 0.9 10^3/uL (1.5-3.5); LYMPHOCYTES % (AUTO) 16.8 %; MEAN CORPUSCULAR HEMOGLOBIN 32.6 pg (27.0-31.0); MEAN CORPUSCULAR HGB CONC 33.7 g/dL (32.0-36.0); MEAN CORPUSCULAR VOLUME 96.7 fL (81.0-99.0); MEAN PLATELET VOLUME 9.1 fL (7.9-10.8); MONOCYTES # (AUTO) 0.6 10^3/uL (0.0-1.0); MONOCYTES % (AUTO) 9.8 %; NEUTROPHILS # (AUTO) 3.9 10^3/uL (1.5-6.6); NEUTROPHILS % (AUTO) 69.7 %; PLT - PLATELET COUNT 176 10^3/uL (130-450); RED BLOOD COUNT 3.76 10^6/uL (4.20-5.40); RED CELL DISTRIBUTION WIDTH 16.4 % (12.0-15.0); WHITE BLOOD COUNT 5.6 x10^3/uL (4.8-10.8)
[2018-08-02] MEDS ORDERED: IPRATROPIUM/ALBUTEROL 3 ML NEB INH STA (13:35)
[2018-08-02 13:45] LABS: ALBUMIN 3.5 g/dL (3.2-5.5); ALBUMIN/GLOBULIN RATIO 1.2 (1.0-2.2); BILIRUBIN,TOTAL 0.6 mg/dL (0.2-1.0); CALCIUM 8.1 mg/dL (8.5-10.3); CREATININE 0.9 mg/dL (0.4-1.0); TOTAL PROTEIN 6.4 g/dL (6.7-8.2)
--- NOTE | 2018-08-02 14:33 | XRAY Report ---
Reason: cp Procedure Date: 08/02/2018 Accession Number: [id number] / [id number] Procedure: XR - Chest 2 View X-Ray CPT Code: 90860 FULL RESULT: EXAM: CHEST RADIOGRAPHY EXAM DATE: 08/02/2018 02:08 PM. CLINICAL HISTORY: Chest pain COMPARISON: CHEST 1 VIEW 05/24/2017 11:59 AM. TECHNIQUE: 2 views. FINDINGS: Lungs/Pleura: Lung volumes have decreased. No definite consolidation or new airspace disease. There is mild blunting of the bilateral costophrenic angles. Mediastinum: There is moderate cardiac enlargement. Pacemaker leads overlie right atrium and right ventricle. There is moderate aortic arch atherosclerotic calcification. Other: None. IMPRESSION: 1. Moderate cardiac enlargement. 2. Very small bilateral pleural effusions. RADIA
[2018-08-02] MEDS ORDERED: NITROGLYCERIN 2% PASTE TOP STA (14:35)
[2018-08-02] MEDS ORDERED: ASPIRIN CHEW 81 MG TABLET PO STA (14:35)
[2018-08-02] MEDS ORDERED: FUROSEMIDE 40 MG/4 ML VIAL IVP STA (14:35)
--- NOTE | 2018-08-02 14:36 | ED Physician Documentation ---
PD HPI DYSPNEA - Stated complaint Stated Complaint: SOA - Chief complaint Chief Complaint: Resp - Additional information Additional information: 88-year-old female was brought to the emergency department for increasing shortness of breath and dyspnea on exertion with pedal edema over the past several days. The patient's primary started her on a course of antibiotics for presumed bacterial upper respiratory tract infection but the patient had no improvement. The family and patient have noticed wheezing in her chest. The patient denies any chest pain. Symptoms are described as moderate. No triggering factors. No other associated symptoms. EMS found the patient to be hypoxic on arrival in the patient's room air saturation was in the 80s Review of Systems Constitutional: reports: Fatigue. denies: Fever, Chills Eyes: denies: Discharge Ears: denies: Loss of hearing Nose: denies: Rhinorrhea / runny nose Throat: denies: Sore throat Cardiac: denies: Chest pain / pressure Respiratory: reports: Dyspnea, Wheezing GI: denies: Abdominal Pain : denies: Dysuria Skin: denies: Rash Musculoskeletal: denies: Neck pain Neurologic: denies: Syncope PD PAST MEDICAL HISTORY - Past Medical History Cardiovascular: Pulmonary embolism, Other Respiratory: None Neuro: TIA Endocrine/Autoimmune: None GI: None HEEL PACKER: None : Incontinence HEENT: Glaucoma Psych: None Musculoskeletal: None Derm: None - Past Surgical History Past Surgical History: Yes Cardiovascular: Pacemaker HEENT: Cataracts - Present Medications Home Medications: Ambulatory Orders Medication Instructions Recorded Confirmed Latanoprost 0.005% Ophth Drops 1 drops EACHEYE QPM #1 04/25/17 05/20/17 [Xalatan Ophth Drops] Multivitamin [Multivitamins] 1 each PO DAILY #30 capsule 04/25/17 05/20/17 Potassium Chloride [K-Dur] 10 meq PO DAILYWM #30 tablet 04/25/17 05/20/17 Acetaminophen [Tylenol] 650 mg PO Q6H PRN #30 05/26/17 05/21/17 Aspirin [Adult Low Dose Aspirin EC] 81 mg PO DAILY #30 05/26/17 05/21/17 Calcium Carbonate [Tums (Calcium 500 mg PO DAILY #30 tablet 05/26/17 Carbonate 500mg)] Labetalol [Trandate] 50 mg PO DAILY #30 tablet 05/26/17 hydroCHLOROthiazide [Hydrodiuril] 12.5 mg PO MOWEFR #30 05/26/17 05/21/17 Apixaban [Eliquis] 5 mg PO BID #30 tablet 06/02/17 - Allergies Allergies/Adverse Reactions: Allergies Allergy/AdvReac Type Severity Reaction Status Date / Time amlodipine Allergy Unknown Verified 01/15/18 15:08 - Social History Does the pt smoke?: No Smoking Status: Never smoker Does the pt drink ETOH?: Yes Does the pt have substance abuse?: No - Immunizations Immunizations are current?: Yes - POLST POLST Status: DNR PD ED PE NORMAL - General General: Alert and oriented X 3 - HEENT HEENT: Atraumatic, PERRL, EOMI, Ears normal - Neck Neck: Supple, no meningeal sign - Cardiac Cardiac: RRR, Strong equal pulses - Respiratory Respiratory: No respiratory distress. No: Clear bilaterally (The patient has wheezes and crackles bilaterally but is in no respiratory distress) - Abdomen Abdomen: Soft - Derm Derm: Normal color - Extremities Extremities: No deformity. No: No edema (Bilateral pedal edema) - Neuro Neuro: Alert and oriented X 3, Normal speech - Psych Psych: Normal affect Results - Vitals Vitals: Vital Signs - 24 hr 08/02/18 08/02/18 08/02/18 12:59 14:10 14:52 Heart Rate 70 66 67 Respiratory 16 22 20 Rate Blood Pressure 179/100 H 174/96 H O2 Saturation 97 99 Oxygen O2 Source Room air - EKG (time done) 13:11 Rate: Rate (enter#) Other comments: Other comments (Atrial sensed and ventricular paced) - Labs Labs: Laboratory Tests 08/02/18 08/02/18 08/02/18 13:17 13:17 13:17 WBC 5.6 RBC 3.76 L Hgb 12.3 Hct 36.4 L MCV 96.7 MCH 32.6 H MCHC 33.7 RDW 16.4 H Plt Count 176 MPV 9.1 Neut # (Auto) 3.9 Lymph # (Auto) 0.9 L [place] # (Auto) 0.6 Eos # (Auto) 0.2 Baso # (Auto) 0.0 Absolute Nucleated RBC 0.00 Nucleated RBC % 0.0 VBG pH VBG pCO2 VBG pO2 VBG HCO3 VBG Total CO2 VBG O2 Saturation VBG Base Excess Sodium 139 Potassium 3.8 Chloride 105 Carbon Dioxide 28 Anion Gap 6.0 BUN 19 Creatinine 0.9 Estimated GFR (MDRD) 59 L Glucose 109 H Lactic Acid Calcium 8.1 L Total Bilirubin 0.6 AST 25 ALT 18 Alkaline Phosphatase 64 Troponin I 0.06 B-Natriuretic Peptide Total Protein 6.4 L Albumin 3.5 Globulin 2.9 Albumin/Globulin Ratio 1.2 Lipase 24 Influenza A (Rapid) Influenza B (Rapid) 08/02/18 08/02/18 08/02/18 13:17 13:17 13:17 WBC RBC Hgb Hct MCV MCH MCHC RDW Plt Count MPV Neut # (Auto) Lymph # (Auto) [place] # (Auto) Eos # (Auto) Baso # (Auto) Absolute Nucleated RBC Nucleated RBC % VBG pH 7.417 H VBG pCO2 44.5 VBG pO2 61.6 H VBG HCO3 28.0 VBG Total CO2 29.4 H VBG O2 Saturation 91.6 H VBG Base Excess 3.0 H Sodium Potassium Chloride Carbon Dioxide Anion Gap BUN Creatinine Estimated GFR (MDRD) Glucose Lactic Acid 0.7 Calcium Total Bilirubin AST ALT Alkaline Phosphatase Troponin I B-Natriuretic Peptide 1429 H Total Protein Albumin Globulin Albumin/Globulin Ratio Lipase Influenza A (Rapid) Influenza B (Rapid) 08/02/18 14:15 WBC RBC Hgb Hct MCV MCH MCHC RDW Plt Count MPV Neut # (Auto) Lymph # (Auto) [place] # (Auto) Eos # (Auto) Baso # (Auto) Absolute Nucleated RBC Nucleated RBC % VBG pH VBG pCO2 VBG pO2 VBG HCO3 VBG Total CO2 VBG O2 Saturation VBG Base Excess Sodium Potassium Chloride Carbon Dioxide Anion Gap BUN Creatinine Estimated GFR (MDRD) Glucose Lactic Acid Calcium Total Bilirubin AST ALT Alkaline Phosphatase Troponin I B-Natriuretic Peptide Total Protein Albumin Globulin Albumin/Globulin Ratio Lipase Influenza A (Rapid) Negative Influenza B (Rapid) Negative - Rads (name of study) CXR Radiology: Final report received, See rad report PD MEDICAL DECISION MAKING - ED course ED course: The patient has acute congestive heart failure and is hypoxic and will require admission to the hospital for ongoing management. The findings and plan were discussed with the patient and family who understand and agree to the plan. The case was discussed with the hospitalist Dr. Caraballo who accepts the patient onto her service. Departure - Departure Disposition: 66 [facility] DC/Xfer Clinical Impression: Hypoxia Acute CHF (congestive heart failure) Qualifiers: Heart failure type: unspecified Qualified Code(s): I50.9 - Heart failure, unspecified
[2018-08-02] MEDS ORDERED: MORPHINE 2 MG/ML CARPUJECT IVP PRN (15:10)
[2018-08-02] MEDS ORDERED: PROCHLORPERAZINE 10 MG/2 ML VIAL IVP PRN (15:10)
[2018-08-02] MEDS ORDERED: ACETAMINOPHEN 325 MG TABLET PO PRN (15:10)
[2018-08-02] MEDS ORDERED: TEMAZEPAM 15 MG CAPSULE PO PRN (15:42)
[2018-08-02] MEDS: NITROGLYCERIN 2% PASTE TOP SCH ×2 (17:04→23:48)
[2018-08-02] MEDS: SODIUM CHLORIDE FLUSH 0.9% 10 ML SYRINGE IVP SCH (18:40)
[2018-08-02] MEDS: LATANOPROST 0.005% OPHTH DROPS EACHEYE SCH (21:04)
[2018-08-02] MEDS: APIXABAN 2.5 MG TABLET PO SCH (21:04)
--- NOTE | 2018-08-02 23:29 | HISTORY & PHYSICAL EXAMINATION ---
DATE OF SERVICE: 08/02/2018 Physician: Aleyda Caraballo MD HISTORY OF PRESENT ILLNESS: This is an 88-year-old white female who lives at 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 The patient presented with shortness of breath. She and the daughter reported that there was shortness of breath and audible wheezing two weeks ago for which she went to her PCP and started with Zithromax, which did not improve her symptoms and she began a second course of antibiotics along with inhalers. She had no improvement with this either. In the last several days, she has noticed a weight gain of unknown amount of pounds and also describes new leg edema, right greater than left. An ambulance was called and the uke driver arrived to find her short of breath and with a room air oxygen saturation of 86%. She was brought to the emergency room. Her workup here shows that she has volume overload with a BNP of 1400, pedal edema, cardiomegaly and possible CHF of new onset. PAST MEDICAL HISTORY: Hypertension, stroke, glaucoma, DJD, saddle embolus of the pulmonary artery, now on Eliquis, she has a pacemaker. ALLERGIES: AMLODIPINE. MEDICATIONS 1. Baby aspirin daily. 2. Ellipta inhaler p.r.n. 3. Calcium carbonate daily. 4. Finishing Cephalexin oral antibiotic. 5. Trusopt eyedrops for glaucoma. 6. Eliquis 5 mg b.i.d. 7. Lasix 20 mg daily. 8. Labetalol 50 mg daily. 9. Multivitamin daily. 10. Potassium chloride 10 mEq daily. 11. Timolol eyedrops daily. 12. Latanoprost eyedrops daily. 13. P.r.n. Tylenol. FAMILY HISTORY: No inherited diseases. SOCIAL HISTORY: The patient is a remote ex-smoker, drinks no alcohol or use any illicit drugs. She lives at [facility] where she uses a walker to ambulate, but is overall independent according to the daughter. REVIEW OF SYSTEMS: There has been no sputum production, but there is a dry cough, no fever, no palpitations, dizziness or syncope. She has a pacemaker that was placed many years ago and it is nearing its end of life and the daughter describes it as being checked now every two months. She is about to have that pacemaker check, but was just informed that her normal supervisor taping just moved from the [facility] and she has not established with a new supervisor taping yet. She denies ever needing a stress test or had any other past cardiac history. She is not sure if she ever had an Echo. There are no Echo reports done in this hospital, by my review. A comprehensive review of systems was performed and the pertinent positives are listed, the rest are negative. PHYSICAL EXAMINATION GENERAL: Elderly white female. She is in no distress, on nasal cannula oxygen. VITAL SIGNS: Blood pressure 178/90 and was as high as 179/100 on presentation. Heart rate is 70 and regular indicating a paced rhythm. Afebrile. 4 liter cannula oxygen gives her a saturation of 95%. HEENT: Unremarkable with the possibility of a mild facial droop on the left. NECK: Without JVD or carotid bruits in a vertical position. CHEST: Has anterior rales bilaterally at the bases. HEART: Heart sounds are normal, distant. No murmurs. No RV heave or gallop. ABDOMEN: Soft, nontender. No organomegaly. Normal bowel sounds. EXTREMITIES: 1 to 2+ edema to the mid shins, right greater than left. No clubbing or cyanosis. NEUROLOGIC: Mild left facial droop, but otherwise nonfocal. LABORATORIES: Normal electrolytes. Normal BUN and creatinine. Kizzy lactic acid of 0.7. Normal liver tests and lipase. BNP 1429. There is no old BNP for comparison. White count 5.6, hemoglobin 12.3, platelet count 176. Influenza A and B swabs are negative. Venous blood gas showed a pH of 7.41. IMAGING: Chest x-ray shows marked cardiomegaly and small bilateral pleural effusions. EKG: Normal sinus rhythm, ventricular paced rhythm. IMPRESSION/DIAGNOSES 1. New onset of congestive heart failure by virtue of very high BNP and both lung and leg edema, unspecified type. 2. Hypertension, poorly controlled. 3. History of cerebrovascular accident. 4. History of pulmonary embolism, on Eliquis. 5. Glaucoma. PLAN: Admit the patient to med/surg status on telemetry. Of concern is the report that her pacemaker is nearing end of life, since there could be pacemaker failure creating poor cardiac output and therefore heart failure. Obtain an Echo to establish LV and RV contractility and request old Echo reports that may have been done at her supervisor taping's office. Continue with diuresis; she received IV Lasix in the ER and will continue with Lasix 40 IV b.i.d. Follow I's and O's carefully, monitor her daily weight, electrolytes daily and magnesium daily. With Lasix her high blood pressure may improve, but also add additional medication and will therefore continue nitro paste, which was begun in the emergency room. Continue with supplemental oxygen. Continue with her daily aspirin and glaucoma treatment eyedrops. Continue with her Eliquis dosing. We will obtain a V/Q scan to evaluate for any recurrence of PE despite Eliquis, since there may be a DVT because of the unequal edema of the legs, therefore obtain a venous Doppler of the right lower extremity. Follow troponins x3 to rule out an TX as the cause of heart failure. CODE STATUS: DNR. DEEP VENOUS THROMBOSIS PROPHYLAXIS: She is on therapeutic Eliquis, but also will add SCDs. ATTESTATION: The patient is expected to be discharged or transferred to another facility within 96 hours: Yes. cc: Elver Francisco M.D TD: 08/02/2018 18:20 MTDD
[2018-08-03] MEDS: SODIUM CHLORIDE FLUSH 0.9% 10 ML SYRINGE IVP SCH ×4 (00:02→23:34)
--- NOTE | 2018-08-03 00:42 | Ultrasound Report ---
Reason: RIGHT LEG EDEMA Procedure Date: 08/02/2018 Accession Number: [id number] / [id number] Procedure: US - Duplex Ext Veins Right CPT Code: FULL RESULT: EXAM: RIGHT LOWER EXTREMITY VENOUS ULTRASOUND EXAM DATE: 08/02/2018 11:24 PM. CLINICAL HISTORY: Right leg edema. COMPARISON: None. TECHNIQUE: Real-time sonographic vascular imaging was performed by the speech correction assistant through the lower extremity utilizing both color-flow and Doppler spectral analysis. Multiple member services representative static images were saved for review. FINDINGS: Common Femoral Vein (CFV): Normal. CFV-GSV Junction: Normal. Profunda Femoral Vein (PFV): Normal. Femoral Vein (FV) Prox: Normal. Femoral Vein (FV) Mid: Normal. Femoral Vein (FV) Dist: Normal. Popliteal Vein: Normal. Posterior Tibial Veins: Normal. Peroneal Veins: Normal. Contralateral Side CFV: Normal. Other: Small, 2 x 0.5 x 1 cm pocket of fluid in the right popliteal fossa could be a small popliteal cyst. IMPRESSION: 1. No evidence for right leg deep venous thrombosis. 2. Small popliteal cyst. RADIA
[2018-08-03 06:42] LABS: BASOPHILS % (AUTO) 0.5 %; EOSINOPHILS # (AUTO) 0.3 10^3/uL (0.0-0.7); EOSINOPHILS % (AUTO) 5.6 %; HGB - HEMOGLOBIN 11.7 g/dL (12.0-16.0); LYMPHOCYTES % (AUTO) 20.7 %; MEAN CORPUSCULAR HGB CONC 33.2 g/dL (32.0-36.0); MEAN CORPUSCULAR VOLUME 99.4 fL (81.0-99.0); MEAN PLATELET VOLUME 9.2 fL (7.9-10.8); MONOCYTES # (AUTO) 0.6 10^3/uL (0.0-1.0); MONOCYTES % (AUTO) 11.7 %; NEUTROPHILS # (AUTO) 2.9 10^3/uL (1.5-6.6); NEUTROPHILS % (AUTO) 61.5 %; PLT - PLATELET COUNT 165 10^3/uL (130-450); RED BLOOD COUNT 3.56 10^6/uL (4.20-5.40); RED CELL DISTRIBUTION WIDTH 16.1 % (12.0-15.0); WHITE BLOOD COUNT 4.7 x10^3/uL (4.8-10.8)
[2018-08-03] MEDS: FUROSEMIDE 40 MG/4 ML VIAL IVP SCH ×2 (06:42→13:56)
[2018-08-03] MEDS: PANTOPRAZOLE 40 MG TABLET PO SCH (06:43)
[2018-08-03] MEDS: SODIUM CHLORIDE FLUSH 0.9% 10 ML SYRINGE IVP PRN ×2 (06:43→13:55)
[2018-08-03 06:52] LABS: CREATININE 0.8 mg/dL (0.4-1.0); MAGNESIUM 2.3 mg/dL (1.7-2.8)
[2018-08-03] MEDS ORDERED: POTASSIUM CHLORIDE 20 MEQ TABLET PO SCH (08:00)
[2018-08-03] MEDS: APIXABAN 2.5 MG TABLET PO SCH ×2 (08:15→20:38)
[2018-08-03] MEDS: NITROGLYCERIN 2% PASTE TOP SCH ×3 (08:15→23:45)
[2018-08-03] MEDS: MULTIVITAMIN TABLET PO SCH (08:15)
[2018-08-03] MEDS: ASPIRIN EC 81 MG TABLET PO SCH (10:26)
[2018-08-03] MEDS: LABETALOL 100 MG TABLET PO SCH (10:26)
[2018-08-03] MEDS: POLYETHYLENE GLYCOL 3350 17 GM PACKET PO SCH (10:27)
[2018-08-03] MEDS: POTASSIUM CHLORIDE 20 MEQ TABLET PO SCH ×2 (10:27→13:55)
[2018-08-03] MEDS: CALCIUM CARBONATE CHEW 500 MG TABLET PO SCH (10:27)
--- NOTE | 2018-08-03 12:21 | Nuclear Medicine Report ---
Reason: Hypoxia, Hx of saddle embolism (PE) Procedure Date: 08/03/2018 Accession Number: [id number] / [id number] Procedure: NM - Lung Vent/Perf V/Q CPT Code: FULL RESULT: EXAM: VENTILATION/PERFUSION SCAN (V/Q SCAN) EXAM DATE: 08/03/2018 11:50 AM. CLINICAL HISTORY: Hypoxia, history of saddle embolism (PE). COMPARISON: CHEST 2 VIEW 08/02/2018 2:00 PM. TECHNIQUE: Patient was administered 43.5 mCi of technetium 99m DTPA aerosol by inhalation and 8 standard ventilation images of the lungs were obtained. Next, the patient was injected with 5.2 mCi of technetium 99m MAA intravenously and 8 standard perfusion images of the lungs were obtained. FINDINGS: Ventilation Scan: Ventilation pattern is significantly heterogeneous. There is relatively poor ventilation to the upper lobes. There is a prominent cardiac silhouette with poor ventilation of left lower lobe. Perfusion Scan: Perfusion is more homogeneous than ventilation. Prominent cardiac silhouette noted with greater perfusion of the left lower lobe compared to ventilation. There is an artifact on the left from the pacemaker. No mismatched perfusion defects are evident. IMPRESSION: Negative for scintigraphic evidence of pulmonary embolism. RADIA
--- NOTE | 2018-08-03 15:53 | PROVIDER PROGRESS NOTE ---
Assessment/Plan - Problem List (1) Acute CHF (congestive heart failure) Qualifiers: Heart failure type: unspecified Qualified Code(s): I50.9 - Heart failure, unspecified Assessment/Plan: Troponins were neg for an acute MT as cause of CHF. Diuresis continues, she is about 800 cc neg since admission. Echo is still pending (we had no Echo availability in this hospital for 8 days. Expect Echo to be available tomorrow). (2) Hypokalemia Assessment/Plan: Likely from diuresis. Will replace KCl. Monitor electroytes and Magnesium, while diuresing. (3) Hypertension Qualifiers: Assessment/Plan: This is slightly improved since admission with the addition of Lasix iv and NTP to her home dose of Labetolol. Await Echo results, as she may need changes in meds, based on LVEF. (4) CVA, old, ataxia Assessment/Plan: PT was orderd to bgin ambulating her. (5) Glaucoma Assessment/Plan: Continue her eye drops treatment. (6) Hx pulmonary embolism Assessment/Plan: VQ scan was done and showed no PE to explain her 2 weeks of SOB. Venous Doppler of the R leg was also completed, showed no DVT. Continue her Eliquis due to Hx of saddle pulmonary embolism approx 1 year ago.. (7) Dementia Assessment/Plan: Poor memory is obvious today, and the daughter stated she doesn't remember. - Current Meds Current Meds: Current Medications Generic Name Dose Route Start Last Admin Trade Name Freq PRN Reason Stop Dose Admin Apixaban 5 mg 08/02/18 21:00 08/03/18 08:15 Eliquis PO 5 mg BID JONE Administration Aspirin 81 mg 08/03/18 09:00 08/03/18 10:26 Ecotrin PO 81 mg DAILY JONE Administration Calcium Carbonate/Glycine 500 mg 08/03/18 09:00 08/03/18 10:27 Tums PO 500 mg DAILY JONE Administration Furosemide 40 mg 08/03/18 06:00 08/03/18 13:56 Lasix Inj 40 Mg Vial IVP 40 mg BIDDIURETIC JONE Administration Labetalol HCl 50 mg 08/03/18 09:00 08/03/18 10:26 Trandate PO 50 mg DAILY JONE Administration Latanoprost 1 drops 08/02/18 21:00 08/02/18 21:04 Xalatan Ophth Drops EACHEYE 1 drops QPM JONE Administration Multivitamins 1 tab 08/03/18 08:00 08/03/18 08:15 Theragran PO 1 tab DAILYWM JONE Administration Nitroglycerin 0.5 inch 08/02/18 16:00 08/03/18 08:15 Nitro-Bid (Pkt) TOP 0.5 inch Q8H JONE Administration Pantoprazole Sodium 40 mg 08/03/18 07:00 08/03/18 06:43 Protonix PO 40 mg QDAC JONE Administration Polyethylene Glycol 17 gm 08/03/18 09:00 08/03/18 10:27 Miralax PO 17 gm DAILY JONE Administration Potassium Chloride 20 meq 08/03/18 09:15 08/03/18 13:55 K-Dur PO 20 meq 0900,1300 JONE Administration Sodium Chloride 10 ml 08/02/18 15:10 08/03/18 13:55 Normal Saline Flush 0.9% IVP 10 ml PRN PRN Administration NEEDED PER PROVIDER ORDERS Sodium Chloride 10 ml 08/02/18 17:00 08/03/18 13:55 Normal Saline Flush 0.9% IVP 10 ml 0100,0900,1700 JONE Administration - Lab Result Fish Bone Diagrams: 08/03/18 06:11 08/03/18 06:11 - Additional Planning My Orders: My Active Orders 08/02/18 15:10 Activity Orders [RC] Q2HR IO [RC] IOSHIFT Initiate Bowel Care Protocol [RC] .protocol Initiate Line Care Protocol [RC] .protocol Initiate Line Care Protocol [RC] QSHIFT Initiate Personal Care Protoco [RC] .protocol Oxygen Therapy [RC] Routine Telemetry- [RC] Q4HR Vital Signs [RC] Q4HR Acetaminophen [Tylenol] 650 mg PO Q4HR PRN Morphine Inj (Carpuject) [Morphine (Carpuject)] 2 mg IVP Q2HR PRN Prochlorperazine Inj [Compazine Inj] 10 mg IVP Q6HR PRN Sodium Chloride Flush 0.9% [Normal Saline Flush 0.9%] 10 ml IVP PRN PRN Code Status [OTHERS] Routine Condition of Patient [OTHERS] Routine DVT Prophylaxis [OTHERS] Routine 08/02/18 15:13 Daily Weight [RC] 0600 IV Insert [RC] .ONCE 08/02/18 15:14 SCDs [RC] QSHIFT 08/02/18 15:15 Evaluate and Treat OT [OT] Routine Evaluate and Treat PT [PT] Routine 08/02/18 15:17 Echo Transthoracic Complete [ECHO] Routine 08/02/18 15:21 Miscellaenous Nursing Order [RC] QSNDFT 08/02/18 15:27 Pure Wick [Female External Catheter Care] [] QSNDFT 08/02/18 15:42 Temazepam [Restoril] 15 mg PO QPM PRN 08/02/18 16:00 Nitroglycerin 2% Paste (Pkt) [Nitro-Bid (Pkt)] 0.5 inch TOP Q8H 08/02/18 17:00 Sodium Chloride Flush 0.9% [Normal Saline Flush 0.9%] 10 ml IVP 0100,0900,1700 08/02/18 21:00 Apixaban [Eliquis] 5 mg PO BID Latanoprost 0.005% Ophth Drops [Xalatan Ophth Drops] 1 drops EACHEYE QPM 08/02/18 Dinner Low Sodium Diet [DIET] 08/03/18 06:00 FUROSEMIDE INJ 40mg VIAL [LASIX INJ 40 mg VIAL] 40 mg IVP BIDDIURETIC 08/03/18 07:00 Pantoprazole [Protonix] 40 mg PO QDAC 08/03/18 08:00 Multivitamin [Theragran] 1 tab PO DAILYWM 08/03/18 09:00 Aspirin EC [Ecotrin] 81 mg PO DAILY Calcium Carbonate [Tums] 500 mg PO DAILY Labetalol [Trandate] 50 mg PO DAILY Polyethylene Glycol 3350 [Miralax] 17 gm PO DAILY 08/03/18 09:15 Potassium Chloride [K-Dur] 20 meq PO 0900,1300 08/04/18 05:00 BMP - BASIC METABOLIC PANEL [CHEM] DAILYLAB BNP - B-NATRIURETIC PEPTIDE [IAI] DAILYLAB CBC - COMP BLD CT W/AUTO DIFF [HEME] DAILYLAB MAGNESIUM [CHEM] DAILYLAB Subjective - Subjective Patient Reports: Feeling Better, Other ("When O2 was off for eating, she got very SOB" per daughter, at her bedside.) Objective Vital Signs: Vital Signs - 24 hr 08/02/18 08/02/1808/02/19 16:00 18:49 20:54 Temperature 36.7 C 36.3 C L Heart Rate [ 70 70 Radial] Respiratory 24 22 Rate Blood Pressure 178/90 H 173/82 H 150/51 H [Right Brachial artery] O2 Saturation 95 96 08/03/18 08/03/18 08/03/18 00:01 05:00 09:00 Temperature 36.4 C L 36.3 C L 36.5 C Heart Rate [ 69 69 70 Radial] Respiratory 18 16 17 Rate Blood Pressure 159/74 H 167/78 H 171/80 H [Right Brachial artery] O2 Saturation 97 97 97 08/03/18 08/03/18 13:00 15:36 Temperature 36.4 C L 36.8 C Heart Rate [ 65 67 Radial] Respiratory 22 20 Rate Blood Pressure 143/57 H 154/76 H [Right Brachial artery] O2 Saturation 94 99 Oxygen O2 Source Nasal cannula I&O (Last 24 Hrs): Intake and Output Totals x24h 08/01/18 08/02/18 08/03/18 23:59 23:59 23:59 Intake Total 250 840 Output Total 325 2350 Balance -75 -1510 General: Alert, Cooperative HEENT: Mucous membr. moist/pink, Other (wearing O2 by n.c.) Neck: Supple Neuro: Disoriented, Other (Only oriented to self and daughter (this is her baseline, per daughter)) Cardiovascular: No murmurs Respiratory: Other (Diminished bilateral base breath sounds) Abdomen: Soft, No tenderness Extremities: Other (1+ edema bilaterally) - Results Results: Laboratory Results WBC 4.7 x10^3/uL (4.8-10.8) L 08/03/18 06:11 RBC 3.56 10^6/uL (4.20-5.40) L 08/03/18 06:11 Hgb 11.7 g/dL (12.0-16.0) L 08/03/18 06:11 Hct 35.4 % (37.0-47.0) L 08/03/18 06:11 MCV 99.4 fL (81.0-99.0) H 08/03/18 06:11 MCH 33.0 pg (27.0-31.0) H 08/03/18 06:11 MCHC 33.2 g/dL (32.0-36.0) 08/03/18 06:11 RDW 16.1 % (12.0-15.0) H 08/03/18 06:11 Plt Count 165 10^3/uL (130-450) 08/03/18 06:11 MPV 9.2 fL (7.9-10.8) 08/03/18 06:11 Neut # (Auto) 2.9 10^3/uL (1.5-6.6) 08/03/18 06:11 Lymph # (Auto) 1.0 10^3/uL (1.5-3.5) L 08/03/18 06:11 [place] # (Auto) 0.6 10^3/uL (0.0-1.0) 08/03/18 06:11 Eos # (Auto) 0.3 10^3/uL (0.0-0.7) 08/03/18 06:11 Baso # (Auto) 0.0 10^3/uL (0.0-0.1) 08/03/18 06:11 Absolute Nucleated RBC 0.00 x10^3/uL 08/03/18 06:11 Nucleated RBC % 0.0 /100WBC 08/03/18 06:11 VBG pH 7.417 (7.31-7.41) H 08/02/18 13:17 VBG pCO2 44.5 mmHg (41-51) 08/02/18 13:17 VBG pO2 61.6 mmHg (25-47) H 08/02/18 13:17 VBG HCO3 28.0 mmol/L (23-28) 08/02/18 13:17 VBG Total CO2 29.4 mmol/L (24-29) H 08/02/18 13:17 VBG O2 Saturation 91.6 % (60-80) H 08/02/18 13:17 VBG Base Excess 3.0 mmol/L (-2 - +2) H 08/02/18 13:17 Sodium 140 mmol/L (135-145) 08/03/18 06:11 Potassium 3.2 mmol/L (3.5-5.0) L 08/03/18 06:11 Chloride 99 mmol/L (101-111) L 08/03/18 06:11 Carbon Dioxide 31 mmol/L (21-32) 08/03/18 06:11 Anion Gap 10.0 (6-13) 08/03/18 06:11 BUN 16 mg/dL (6-20) 08/03/18 06:11 Creatinine 0.8 mg/dL (0.4-1.0) 08/03/18 06:11 Estimated GFR (MDRD) 68 (>89) L 08/03/18 06:11 Glucose 99 mg/dL (70-100) 08/03/18 06:11 Lactic Acid 0.7 mmol/L (0.5-2.2) 08/02/18 13:17 Calcium 8.0 mg/dL (8.5-10.3) L 08/03/18 06:11 Magnesium 2.3 mg/dL (1.7-2.8) 08/03/18 06:11 Total Bilirubin 0.6 mg/dL (0.2-1.0) 08/02/18 13:17 AST 25 IU/L (10-42) 08/02/18 13:17 ALT 18 IU/L (10-60) 08/02/18 13:17 Alkaline Phosphatase 64 IU/L (42-121) 08/02/18 13:17 Troponin I 0.06 ng/mL (<0.49) 08/03/18 06:11 B-Natriuretic Peptide 1033 pg/mL (5-100) H 08/03/18 06:11 Total Protein 6.4 g/dL (6.7-8.2) L 08/02/18 13:17 Albumin 3.5 g/dL (3.2-5.5) 08/02/18 13:17 Globulin 2.9 g/dL (2.1-4.2) 08/02/18 13:17 Albumin/Globulin Ratio 1.2 (1.0-2.2) 08/02/18 13:17 Lipase 24 U/L (22-51) 08/02/18 13:17 Influenza A (Rapid) Negative (Negative) 08/02/18 14:15 Influenza B (Rapid) Negative (Negative) 08/02/18 14:15
[2018-08-03] MEDS: LATANOPROST 0.005% OPHTH DROPS EACHEYE SCH (20:38)
[2018-08-04 05:40] LABS: BASOPHILS % (AUTO) 0.7 %; EOSINOPHILS # (AUTO) 0.3 10^3/uL (0.0-0.7); EOSINOPHILS % (AUTO) 5.8 %; HGB - HEMOGLOBIN 12.2 g/dL (12.0-16.0); LYMPHOCYTES # (AUTO) 0.9 10^3/uL (1.5-3.5); LYMPHOCYTES % (AUTO) 16.4 %; MEAN CORPUSCULAR HEMOGLOBIN 32.7 pg (27.0-31.0); MEAN CORPUSCULAR HGB CONC 33.3 g/dL (32.0-36.0); MEAN CORPUSCULAR VOLUME 98.1 fL (81.0-99.0); MEAN PLATELET VOLUME 9.1 fL (7.9-10.8); MONOCYTES # (AUTO) 0.7 10^3/uL (0.0-1.0); MONOCYTES % (AUTO) 11.7 %; NEUTROPHILS # (AUTO) 3.7 10^3/uL (1.5-6.6); NEUTROPHILS % (AUTO) 65.4 %; PLT - PLATELET COUNT 171 10^3/uL (130-450); RED BLOOD COUNT 3.75 10^6/uL (4.20-5.40); RED CELL DISTRIBUTION WIDTH 16.1 % (12.0-15.0); WHITE BLOOD COUNT 5.7 x10^3/uL (4.8-10.8)
[2018-08-04 05:47] LABS: CALCIUM 8.3 mg/dL (8.5-10.3); CREATININE 0.8 mg/dL (0.4-1.0); MAGNESIUM 2.2 mg/dL (1.7-2.8)
[2018-08-04] MEDS: SODIUM CHLORIDE FLUSH 0.9% 10 ML SYRINGE IVP PRN (06:38)
[2018-08-04] MEDS: FUROSEMIDE 40 MG/4 ML VIAL IVP SCH ×2 (06:38→13:21)
[2018-08-04] MEDS: PANTOPRAZOLE 40 MG TABLET PO SCH (06:38)
[2018-08-04] MEDS: LABETALOL 100 MG TABLET PO SCH (06:52)
[2018-08-04] MEDS: POLYETHYLENE GLYCOL 3350 17 GM PACKET PO SCH (08:13)
[2018-08-04] MEDS: SODIUM CHLORIDE FLUSH 0.9% 10 ML SYRINGE IVP SCH ×2 (08:13→17:21)
[2018-08-04] MEDS: POTASSIUM CHLORIDE 20 MEQ TABLET PO SCH ×2 (08:13→13:21)
[2018-08-04] MEDS: CALCIUM CARBONATE CHEW 500 MG TABLET PO SCH (08:14)
[2018-08-04] MEDS: APIXABAN 2.5 MG TABLET PO SCH ×2 (08:14→20:16)
[2018-08-04] MEDS: MULTIVITAMIN TABLET PO SCH (08:14)
[2018-08-04] MEDS: ASPIRIN EC 81 MG TABLET PO SCH (08:14)
[2018-08-04] MEDS: NITROGLYCERIN 2% PASTE TOP SCH ×2 (08:22→16:44)
[2018-08-04] MEDS: Umeclidinium Brm/Vilanterol Tr [Anoro Ellipta 62.5-25 Mcg Inh] PO SCH (08:25)
[2018-08-04] MEDS: TIMOLOL 0.5% OPHTH DROPS EACHEYE SCH ×2 (08:29→20:18)
[2018-08-04] MEDS ORDERED: LABETALOL 100 MG TABLET PO SCH (09:00)
[2018-08-04] MEDS ORDERED: MULTIVITAMIN TABLET PO SCH (09:00)
--- NOTE | 2018-08-04 13:19 | PROVIDER PROGRESS NOTE ---
Subjective - Prog Note Date Prog Note Date: 08/04/18 Prog Note Time: 13:16 - Subjective Pt reports feeling: Improved (Patient conveys no symptoms.), No change Current Medications - Current Medications Current Medications: Active Medications Acetaminophen (Tylenol) 650 mg PO Q4HR PRN PRN Reason: Pain 1 to 4 Apixaban (Eliquis) 5 mg PO BID [facility] Last Admin: 08/04/18 08:14 Dose: 5 mg Aspirin (Ecotrin) 81 mg PO DAILY [facility] Last Admin: 08/04/18 08:14 Dose: 81 mg Calcium Carbonate/Glycine (Tums) 500 mg PO DAILY [facility] Last Admin: 08/04/18 08:14 Dose: 500 mg Furosemide (Lasix Inj 40 Mg Vial) 40 mg IVP BIDDIURETIC [facility] Last Admin: 08/04/18 06:38 Dose: 40 mg Labetalol HCl (Trandate) 50 mg PO BID [facility] Last Admin: 08/04/18 08:23 Dose: 50 mg Latanoprost (Xalatan Ophth Drops) 1 drops EACHEYE QPM [facility] Last Admin: 08/03/18 20:38 Dose: 1 drops Morphine Sulfate (Morphine (Carpuject)) 2 mg IVP Q2HR PRN PRN Reason: Dyspnea Multivitamins (Theragran) 1 tab PO DAILYWM [facility] Last Admin: 08/04/18 08:14 Dose: 1 tab Nitroglycerin (Nitro-Bid (Pkt)) 0.5 inch TOP Q8H [facility] Last Admin: 08/04/18 08:22 Dose: 0.5 inch Pantoprazole Sodium (Protonix) 40 mg PO QDAC [facility] Last Admin: 08/04/18 06:38 Dose: 40 mg Umeclidinium Brm/Vilanterol Tr [Anoro Ellipta 62.5-25 Mcg Inh] 1 each PO RTDAILY [facility] Last Admin: 08/04/18 08:25 Dose: Not Given Polyethylene Glycol (Miralax) 17 gm PO DAILY [facility] Last Admin: 08/04/18 08:13 Dose: 17 gm Potassium Chloride (K-Dur) 20 meq PO 0900,1300 [facility] Last Admin: 08/04/18 08:13 Dose: 20 meq Prochlorperazine Edisylate (Compazine Inj) 10 mg IVP Q6HR PRN PRN Reason: Nausea / Vomiting Sodium Chloride (Normal Saline Flush 0.9%) 10 ml IVP PRN PRN PRN Reason: NEEDED PER PROVIDER ORDERS Last Admin: 08/04/18 06:38 Dose: 10 ml Sodium Chloride (Normal Saline Flush 0.9%) 10 ml IVP 0100,0900,1700 [facility] Last Admin: 08/04/18 08:13 Dose: 10 ml Temazepam (Restoril) 15 mg PO QPM PRN PRN Reason: Insomnia Timolol Maleate (Timoptic 0.5% Ophth Drops) 1 drops EACHEYE BID [facility] Last Admin: 08/04/18 08:29 Dose: 1 drops Acetaminophen [Tylenol] 650 mg PO Q6H PRN 08/02/18 Dorzolamide HCl/Pf [Dorzolamide 2% Eye Drop] 1 drops EACHEYE BID 08/02/18 Furosemide 20 mg PO DAILY 08/02/18 Multivitamin [Theragran] 1 tab PO DAILY 08/02/18 Timolol 0.5% Ophth Drops [Timoptic 0.5% Ophth Drops] 1 drops EACHEYE BID 08/02/18 Umeclidinium Brm/Vilanterol Tr [Anoro Ellipta 62.5-25 Mcg INH] 1 puffs INH DAILY 08/02/18 Objective - Vital Signs/Intake & Output Reviewed Vital Signs: Yes Vital Signs: Vital Signs x48h Temp Pulse Resp BP BP Pulse Ox 08/04/18 08:10 36.3 C L 67 20 156/75 H 92 08/04/18 06:45 79 180/85 H Vital Signs - 8 hr 08/04/18 08/04/18 06:45 08:10 Temperature 36.3 C L Heart Rate [ 79 67 Radial] Respiratory 20 Rate Blood Pressure 156/75 H [Right Brachial artery] Blood Pressure 180/85 H [Right Radial artery] O2 Saturation 92 Intake & Output: Intake & Output 08/01/18 08/02/18 08/03/18 08/04/18 23:59 23:59 23:59 23:59 Intake Total 250 1210 720 Output Total 325 1185 350 Balance -75 -9701 370 - Objective General Appearance: positive: No acute distress, Alert, Other (demented) Eyes Bilateral: positive: Normal inspection, PERRL, EOMI Neck: positive: Thyroid nml, Trachea midline. negative: No JVD, Thyromegaly, Carotid bruit Respiratory: positive: Chest non-tender, No respiratory distress, Breath sounds nml Cardiovascular: positive: Regular rate & rhythm, No murmur, No gallop. negative: Irregularly irregular, JVD present, Systolic murmur, Gallop/S3, Gallop/S4 Abdomen: positive: Non-tender, No organomegaly, Nml bowel sounds, No distention. negative: Tenderness Back: positive: Nml inspection. negative: CVA tenderness (R), CVA tenderness (L) Skin: positive: Color nml, No rash, Warm Extremities: positive: Non-tender, Full ROM Neurologic/Psychiatric: positive: Motor nml, Sensation nml, Disoriented to person, Disoriented to place - Lab Results Fish Bones: 08/04/18 05:28 08/04/18 05:28 Other Labs: Lab Results x24hrs 08/04/18 08/04/18 08/04/18 Range/Units 05:28 05:28 05:28 WBC 5.7 (4.8-10.8) x10^3/uL RBC 3.75 L (4.20-5.40) 10^6/uL Hgb 12.2 (12.0-16.0) g/dL Hct 36.8 L (37.0-47.0) % MCV 98.1 (81.0-99.0) fL MCH 32.7 H (27.0-31.0) pg MCHC 33.3 (32.0-36.0) g/dL RDW 16.1 H (12.0-15.0) % Plt Count 171 (130-450) 10^3/uL MPV 9.1 (7.9-10.8) fL Neut # (Auto) 3.7 (1.5-6.6) 10^3/uL Lymph # (Auto) 0.9 L (1.5-3.5) 10^3/uL [place] # (Auto) 0.7 (0.0-1.0) 10^3/uL Eos # (Auto) 0.3 (0.0-0.7) 10^3/uL Baso # (Auto) 0.0 (0.0-0.1) 10^3/uL Absolute Nucleated RBC 0.01 x10^3/uL Nucleated RBC % 0.2 /100WBC Sodium 138 (135-145) mmol/L Potassium 3.6 (3.5-5.0) mmol/L Chloride 98 L (101-111) mmol/L Carbon Dioxide 32 (21-32) mmol/L Anion Gap 8.0 (6-13) BUN 18 (6-20) mg/dL Creatinine 0.8 (0.4-1.0) mg/dL Estimated GFR (MDRD) 68 L (>89) Glucose 113 H (70-100) mg/dL Calcium 8.3 L (8.5-10.3) mg/dL Magnesium 2.2 (1.7-2.8) mg/dL B-Natriuretic Peptide 594 H (5-100) pg/mL - Diagnostic Imaging Diagnostic Imaging Results: positive: Final report reviewed ABX Reporting Has patient been on IV antibiotics over the past 48 hours?: No Assessment/Plan - Problem List (1) Systolic and diastolic CHF, acute on chronic Impression: Echo shows grade 1 DD with LVH, moderate pulm HTN with RVSP 50 mmhg, severe increase in LA index, mild-mod MR and mod to severe AR noted, EF 35-40% with global hypokinesis. Diuresis has improved clinical symptoms as well as BNP down from 1K>594. Continue with med mgmt, on labetalol, would transition to isosorbide mononitrate, low dose GDMtx for now, AC with eliquis and already on ASA 81 mg, obtain lipids, not on statin, lasix po bid. May need the addition of an ARB/MARYCARMEN-inh. (2) Malignant hypertensive urgency Impression: Previously on labetalol. This is slightly improved since admission with the addition of Lasix iv and NTP to her home dose of Labetolol, would change to coreg as this is approved for GDMtx for systolic/diast CHF tx. Will change to PO lasix now. (3) Bilateral pleural effusion Impression: Seen on CXR. Transient or "flash" pulm edema in the setting of HTN urgency. Troponins were neg for an acute [place] as cause of CHF. Diuresis continues, she is about 1L cc neg since admission. Echo shows grade 1 DD with LVH, moderate pulm HTN with RVSP 50 mmhg, severe increase in LA index, mild-mod MR and mod to severe AR noted, EF 35-40% with global hypokinesis. Diuresis has improved clinical symptoms as well as BNP down from 1K>594. Continue with med mgmt. (4) Hx pulmonary embolism Impression: Continue with Eliquis. No DVT or PE seen on US/V/q scan. (5) Hypoxia Impression: Sec to transient pulm edema due to uncontrolled BP's. on RA. (6) CVA, old, ataxia Impression: Currently on Eliquis/ASA for CVA ppx, as she has high risk for TIA/ischemic CVA. (7) Dementia Impression: May benefit from cognitive behavioral tx, or aricept/anamenda. Will observe for right now. Qualifiers: Dementia type: unspecified type Dementia behavioral disturbance: without behavioral disturbance Qualified Code(s): F03.90 - Unspecified dementia without behavioral disturbance (8) Heart murmur, systolic Impression: Likely due to long-standing HTN. ECHO shows mild to mod MR/mod to severe AR.
[2018-08-04] MEDS: FUROSEMIDE 40 MG TABLET PO SCH (13:53)
[2018-08-04] MEDS: CARVEDILOL 3.125 MG TABLET PO SCH (20:15)
[2018-08-04] MEDS: ISOSORBIDE MONONITRATE 10 MG TABLET PO SCH (20:15)
[2018-08-04] MEDS: LATANOPROST 0.005% OPHTH DROPS EACHEYE SCH (20:18)
[2018-08-05] MEDS: SODIUM CHLORIDE FLUSH 0.9% 10 ML SYRINGE IVP SCH ×2 (00:18→08:40)
[2018-08-05 05:49] LABS: CALCIUM 8.3 mg/dL (8.5-10.3); CREATININE 0.8 mg/dL (0.4-1.0)
[2018-08-05] MEDS: FUROSEMIDE 40 MG TABLET PO SCH (06:14)
[2018-08-05] MEDS: PANTOPRAZOLE 40 MG TABLET PO SCH (06:14)
--- NOTE | 2018-08-05 07:19 | Discharge Plan ---
Discharge Plan for SNF / [facility] - Discharge Plan And Transition Orders Disposition: 01 Home, Self Care Condition: Stable Allergies and Adverse Reactions: Allergies Allergy/AdvReac Type Severity Reaction Status Date / Time amlodipine Allergy Unknown Verified 01/15/18 15:08 - SNF / [facility] Transition Orders Admit to (Facility): [facility] Under the care of (Name): PCP Elver Francisco Discharge Diagnosis: 1. HTN urgency with associated "flash" pulmonary edema. 2. 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 3. Pulmonary HTN 4. Dementia Medicare Certification Statement: Do not certify that Post Hospital assisted care is medically necessary on a continuing basis for any of the conditions for which she/he is receiving care during hospitalization. Notify PCP of admission and forward orders to primary provider for signature. Weight on admission and: Daily Call PCP immediately if weight increases by: 2.2 kg Other Notification Orders: Call PCP immediately if patient develops dyspnea, chest pain/tightness or edema. House Bowel Program: Yes Additional Bowel Program Orders: If no BM after 2 days, nurse may give M.O.M. 30ml PO PRN and/or ducolax Supp 1 MI and/or GABRIELLA 250mg P.O., and/or senna 1-2 tabs PO. On day 3 nurse may give repeat above order until residents constipation is resolved. Annual Influenza Vaccine (between Feb 28 and September 27): Yes Two-step PPD per [facility] [id number] or approved exception documents: No Treatments & Other Orders: See discharge meds Lab Tests or X-ray Orders: bnp, renal panel q weekly Medication Orders: PLEASE REFER TO THE DISCHARGE MEDICATION LIST. Insulin Orders?: No - Medications New Prescriptions: Carvedilol [Coreg] 6.25 mg PO BID #60 tablet Furosemide [Lasix] 40 mg PO BIDDIURETIC #60 tablet Isosorbide Mononitrate [Ismo] 10 mg PO BID #60 tablet Lisinopril [Zestril] 10 mg PO DAILY #60 tablet - Diet Type: No added salt Texture: Regular Liquids: Thin May have monthly special meal: Yes - Therapies | Activity Activity: Activity as Tolerated Weight Bearing: Full Weight Follow Up: follow up with PCP in 1-2 weeks. F/U with outpatient PT.
--- NOTE | 2018-08-05 07:32 | DISCHARGE SUMMARY ---
Discharge Summary Admit Date: 08/02/18 Discharge Date: 08/05/18 Discharging Provider: Dr. Oconnor Primary Care Provider: Elver Francisco Code Status: Do Not Attempt Resuscitation Condition at Discharge: Stable Discharge Disposition: 01 Home, Self Care Discharge Facility Name: [facility] - DIAGNOSES Admission Diagnoses: HTN urgency, CHF, Leg edema, dementia, hx pulmonary embolism/CVA Discharge Diagnoses with Status of Each Condition: 1. Combined acute on chronic systolic/Diastolic CHF with associated mod AR, mid to mod MR, LVH with grade 1 DD, moderate gloabl hypokinesis. 2. HTN urgency. 3. 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 The patient's primary started her on a course of antibiotics for presumed bacterial upper respiratory tract infection but the patient had no improvement. The fam vanessa and patient have noticed wheezing in her chest. The patient denies any chest pain. Symptoms are described as moderate. No triggering factors. No other associated symptoms. EMS found the patient to be hypoxic on arrival in the patient's room air saturation was in the 80s. Patient was found to have bilateral pleural effusion on cxr, BNP elevated, tropx1 neg, ecg showing A-paced rhythm. - CONSULTS | PROCEDURES Procedures: Echo shows systolic and diastolic CHF with EF 35-40%, LVH with a grade 1 DD. Moderate global hypokinesis, moderate AR with mild to moderate MR. RSVP of 50 mm hg - HOSPITAL COURSE Hospital Course: Patient was managed and treated for acute on chronic systolic/diastolic HF which was seen on Echo shows grade 1 DD with LVH, moderate pulm HTN with RVSP 50 mm hg, severe increase in LA index, mild-mod MR and mod to severe AR noted, Likely due to long-standing HTN. Patient's had an EF 35-40% with global hypokinesis. Diuresis has improved clinical symptoms as well as BNP down from 1K>594>489. Continue with med mgmt, on labetalol, would transition to isosorbide mononitrate, low dose. Continue with GDMtx for now, AC with eliquis and already on ASA 81 mg, obtain lipids, not on statin, lasix po bid. Isosorbide and lisinopril added to regimen to continue at [facility]. Patient was initially manged for he malignant HTN urgency. Previously on labetalol. This is slightly improved since admission with the addition of Lasix iv and NTP to her home dose of Labetolol, would change to coreg as this is approved for GDMtx for systolic/diast CHF tx. Will change to PO lasix now. Would continue with this along with titration on lisinopril at 10 mg po daily and the addition of isosorbide to afterload reduce in the setting of combined systolic and diastolic CHF. She presented with Bilateral pleural effusions seen on CXR. Transient or "flash" pulm edema in the setting of HTN urgency. Troponins were neg for an acute [place] as cause of CHF. Diuresis continues, she is about 1L cc neg since admission. Echo shows grade 1 DD with LVH, moderate pulm HTN with RVSP 50 mmhg, severe increase in LA index, mild-mod MR and mod to severe AR noted, EF 35-40% with global hypokinesis. Diuresis has improved clinical symptoms as well as BNP down from 1K>594. Continue with med mgmt. Patient has a Hx of PE and would Continue with Eliquis. No DVT or PE seen on US/V/q scan. Hypoxia had improved significantly as she received diuresis with lasix and afterload reduction process was Sec to transient pulm edema due to uncontrolled BP's. Does drop to 91-93% on RA, and varies between 0.5-2L, would have RT perform a desaturation Home 02 study for continuous use at [facility]. Patient was continue on Eliquis/ASA for CVA ppx, as she has high risk for TIA/ischemic CVA. Patient with Hx dementia w/o behavioral d/o May benefit from cognitive behavioral tx, or aricept/anamenda. Will observe for right now. - ALLERGIES Allergies/Adverse Reactions: Allergies Allergy/AdvReac Type Severity Reaction Status Date / Time amlodipine Allergy Unknown Verified 01/15/18 15:08 - MEDICATIONS Home Medications: Ambulatory Orders Medication Instructions Recorded Confirmed Latanoprost 0.005% Ophth Drops 1 drops EACHEYE QPM #1 04/25/17 08/02/18 [Xalatan Ophth Drops] Potassium Chloride [K-Dur] 10 meq PO DAILYWM #30 tablet 04/25/17 08/02/18 Aspirin [Adult Low Dose Aspirin EC] 81 mg PO DAILY #30 05/26/17 08/02/18 Calcium Carbonate [Tums (Calcium 500 mg PO DAILY #30 tablet 05/26/17 08/02/18 Carbonate 500mg)] Apixaban [Eliquis] 5 mg PO BID #30 tablet 06/02/17 08/02/18 Acetaminophen [Tylenol] 650 mg PO Q6H PRN 08/02/18 08/02/18 Dorzolamide HCl/Pf [Dorzolamide 2% 1 drops EACHEYE BID 08/02/18 08/02/18 Eye Drop] Multivitamin [Theragran] 1 tab PO DAILY 08/02/18 08/02/18 Timolol 0.5% Ophth Drops [Timoptic 1 drops EACHEYE BID 08/02/18 08/02/18 0.5% Ophth Drops] Umeclidinium Brm/Vilanterol Tr 1 puffs INH DAILY 08/02/18 08/02/18 [Anoro Ellipta 62.5-25 Mcg INH] Carvedilol [Coreg] 6.25 mg PO BID #60 tablet 08/05/18 Furosemide [Lasix] 40 mg PO BIDDIURETIC #60 tablet 08/05/18 Isosorbide Mononitrate [Ismo] 10 mg PO BID #60 tablet 08/05/18 Lisinopril [Zestril] 10 mg PO DAILY #60 tablet 08/05/18 - PHYSICAL EXAM AT DISCHARGE General Appearance: positive: No acute distress, Anxious Eyes Bilateral: positive: Normal inspection, EOMI ENT: positive: ENT inspection nml, Pharynx nml Neck: positive: Nml inspection, Thyroid nml, No JVD. negative: Carotid bruit Respiratory: positive: Chest non-tender, No respiratory distress, Breath sounds nml Cardiovascular: positive: Regular rate & rhythm, No gallop, Systolic murmur, Diastolic murmur. negative: Gallop/S4, Friction rub Peripheral Pulses: positive: 2+ Abdomen: positive: Non-tender, No organomegaly, Nml bowel sounds, No distention. negative: Tenderness Skin: positive: Color nml, No rash Extremities: positive: Non-tender, Full ROM, Nml appearance, Pedal edema (minimal ) - LABS Result Diagrams: 08/04/18 05:28 08/05/18 05:30 - DIAGNOSTIC IMAGING Diagnostic Imaging Results: Final report reviewed - FOLLOW UP Follow Up: follow up with PCP in 1-2 weeks. F/U with outpatient PT. - TIME SPENT Time Spent in Discharge (Minutes): 35
[2018-08-05] MEDS: ISOSORBIDE MONONITRATE 10 MG TABLET PO SCH (08:38)
[2018-08-05] MEDS: ASPIRIN EC 81 MG TABLET PO SCH (08:38)
[2018-08-05] MEDS: APIXABAN 2.5 MG TABLET PO SCH (08:38)
[2018-08-05] MEDS: CALCIUM CARBONATE CHEW 500 MG TABLET PO SCH (08:38)
[2018-08-05] MEDS: POLYETHYLENE GLYCOL 3350 17 GM PACKET PO SCH (08:38)
[2018-08-05] MEDS: CARVEDILOL 3.125 MG TABLET PO SCH (08:38)
[2018-08-05] MEDS: POTASSIUM CHLORIDE 20 MEQ TABLET PO SCH (08:38)
[2018-08-05] MEDS: TIMOLOL 0.5% OPHTH DROPS EACHEYE SCH (08:39)
[2018-08-05] MEDS: Umeclidinium Brm/Vilanterol Tr [Anoro Ellipta 62.5-25 Mcg Inh] PO SCH (08:39)
[2018-08-05] MEDS: MULTIVITAMIN TABLET PO SCH (08:39)
[2018-08-05 08:52] VITALS: BP 178/82
[2018-08-05] MEDS ORDERED: LISINOPRIL 5 MG TABLET PO SCH (09:00)
[2018-08-05] MEDS ORDERED: SENNA 8.6 MG TABLET PO SCH (09:00)
== END 2018-08-05 11:58 | disposition home or self-care (01) | DRG 293 ==
LOC: EDUNIT# → ED 12:54 → MS2 15:10
PROVIDERS: ADMIT Internal Medicine; ATTEND Family Medicine
DX: I50.9 Heart failure, unspecified (principal); I11.0 Hypertensive heart disease with heart failure; R32 Unspecified urinary incontinence; I50.43 Acute on chronic combined systolic (congestive) and diastolic (congestive) heart failure; I16.0 Hypertensive urgency; I27.20 Pulmonary hypertension, unspecified; I08.0 Rheumatic disorders of both mitral and aortic valves; Z79.02 Long term (current) use of antithrombotics/antiplatelets; R09.02 Hypoxemia; Z86.711 Personal history of pulmonary embolism; F03.90 Unspecified dementia, unspecified severity, without behavioral disturbance, psychotic disturbance, mood disturbance, and anxiety; Z79.82 Long term (current) use of aspirin; H40.9 Unspecified glaucoma; M19.90 Unspecified osteoarthritis, unspecified site; R63.5 Abnormal weight gain; Z68.23 Body mass index [BMI] 23.0-23.9, adult; Z87.891 Personal history of nicotine dependence; I69.393 Ataxia following cerebral infarction; R01.1 Cardiac murmur, unspecified; Z66 Do not resuscitate; Z95.0 Presence of cardiac pacemaker
CPT/HCPCS: 36415; 71046; 78582; 80048; 80053; 82803; 83605; 83690; 83735; 83880; 84484; 85025; 87040; 87275; 87276; 93005; 93306; 94640; 96374; 99283; 99285

== ENCOUNTER 2019-01-07 15:32 | Emergency (ER) | payer MEDICARE, OTHER ==
[2019-01-07 16:12] LABS: BASOPHILS % (AUTO) 0.2 %; EOSINOPHILS # (AUTO) 0.2 10^3/uL (0.0-0.7); EOSINOPHILS % (AUTO) 1.8 %; LYMPHOCYTES # (AUTO) 1.1 10^3/uL (1.5-3.5); LYMPHOCYTES % (AUTO) 12.5 %; MEAN CORPUSCULAR HEMOGLOBIN 32.3 pg (27.0-31.0); MEAN CORPUSCULAR HGB CONC 31.7 g/dL (32.0-36.0); MEAN CORPUSCULAR VOLUME 101.9 fL (81.0-99.0); MEAN PLATELET VOLUME 11.3 fL (7.9-10.8); NEUTROPHILS # (AUTO) 6.5 10^3/uL (1.5-6.6); NEUTROPHILS % (AUTO) 73.9 %; PLT - PLATELET COUNT 168 10^3/uL (130-450); RED BLOOD COUNT 3.71 10^6/uL (4.20-5.40); WHITE BLOOD COUNT 8.8 x10^3/uL (4.8-10.8)
[2019-01-07 16:21] LABS: ALBUMIN 3.5 g/dL (3.2-5.5); ALBUMIN/GLOBULIN RATIO 1.2 (1.0-2.2); ALKALINE PHOSPHATASE 59 IU/L (42-121); ALT ALANINE AMINOTRANSFERASE < 10 IU/L (10-60); AST ASPARTATE AMINOTRANSFERASE 18 IU/L (10-42); BILIRUBIN,TOTAL 0.8 mg/dL (0.2-1.0); BUN - BLOOD UREA NITROGEN 20 mg/dL (6-20); CALCIUM 8.8 mg/dL (8.5-10.3); CARBON DIOXIDE - CO2 24 mmol/L (21-32); CHLORIDE 101 mmol/L (101-111); CREATININE 0.7 mg/dL (0.4-1.0); GFR - MDRD 79 (>89); GLUCOSE 114 mg/dL (70-100); LIPASE 28 U/L (22-51); SODIUM 137 mmol/L (135-145); TOTAL PROTEIN 6.4 g/dL (6.7-8.2)
[2019-01-07] MEDS ORDERED: IPRATROPIUM/ALBUTEROL 3 ML NEB INH STA (17:34)
[2019-01-07 17:41] LABS: BILIRUBIN,URINE NEGATIVE (NEGATIVE); GLUCOSE, URINE (UA) NEGATIVE (NEGATIVE); KETONES,URINE (UA) NEGATIVE (NEGATIVE); LEUKOCYTE ESTERASE, URINE SMALL (NEGATIVE); NITRITE,URINE NEGATIVE (NEGATIVE); OCCULT BLOOD,URINE TRACE-LYSE (NEGATIVE); PROTEIN,URINE NEGATIVE (NEGATIVE); UROBILINOGEN,URINE 0.2 (NORMAL) E.U./dL (NORMAL)
[2019-01-07 17:43] LABS: CLARITY,URINE CLEAR (CLEAR)
--- NOTE | 2019-01-07 17:53 | XRAY Report ---
Reason: dyspnea Procedure Date: 01/07/2019 Accession Number: [id number] / [id number] Procedure: XR - Chest 1 View X-Ray CPT Code: 87164 FULL RESULT: EXAM: CHEST RADIOGRAPHY EXAM DATE: 01/07/2019 05:44 PM. CLINICAL HISTORY: Dyspnea. Productive cough. COMPARISON: CHEST 2 VIEW 08/02/2018 2:00 PM. TECHNIQUE: 1 view. FINDINGS: Lungs/Pleura: No focal opacities evident. No pleural effusion. No pneumothorax. Mediastinum: Cardiomegaly. Other: Stable dual lead left pacemaker. IMPRESSION: Cardiomegaly without CHF or acute pulmonary abnormality. RADIA
[2019-01-07 18:09] LABS: BACTERIA,URINE None Seen /HPF (None Seen); RBC,URINE 0-5 /HPF (0-5); SQUAMOUS EPITHELIAL CELL,UR RARE Squamous (<= Few)
[2019-01-07] MEDS ORDERED: FUROSEMIDE 40 MG/4 ML VIAL IVP STA (18:27)
--- NOTE | 2019-01-07 18:29 | ED Physician Documentation ---
History of Present Illness - Stated complaint Stated Complaint: WHEEZING, DISORIENTATED - Chief complaint Chief Complaint: Neuro - History obtained from History obtained from: Patient, Family - History of Present Illness Timing: Today Pain level max: 0 Pain level now: 0 Improved by: nothing Worsened by: nothing - Additonal information Additional information: 88-year-old female with a history of CHF. Family states that she was wheezing earlier today and disoriented. Seems better now. No fevers. No chills. No nausea. No vomiting. No abdominal pain. No chest pain. Review of Systems Constitutional: denies: Fever, Chills Nose: denies: Rhinorrhea / runny nose, Congestion Throat: denies: Sore throat Cardiac: denies: Chest pain / pressure Respiratory: denies: Cough GI: denies: Vomiting Skin: denies: Rash Musculoskeletal: denies: Neck pain, Back pain Neurologic: denies: Focal weakness, Numbness, Headache PD PAST MEDICAL HISTORY - Past Medical History Past Medical History: Yes Cardiovascular: Pulmonary embolism, Other Respiratory: None Neuro: Dementia, TIA Endocrine/Autoimmune: None GI: None FAG[employer]PER: None : Incontinence HEENT: Glaucoma Psych: None Musculoskeletal: None Derm: None - Past Surgical History Past Surgical History: Yes Cardiovascular: Pacemaker HEENT: Cataracts - Present Medications Home Medications: Ambulatory Orders Medication Instructions Recorded Confirmed Latanoprost 0.005% Ophth Drops 1 drops EACHEYE QPM #1 04/25/17 08/02/18 [Xalatan Ophth Drops] Potassium Chloride [K-Dur] 10 meq PO DAILYWM #30 tablet 04/25/17 08/02/18 Aspirin [Adult Low Dose Aspirin EC] 81 mg PO DAILY #30 05/26/17 08/02/18 Calcium Carbonate [Tums (Calcium 500 mg PO DAILY #30 tablet 05/26/17 08/02/18 Carbonate 500mg)] Apixaban [Eliquis] 5 mg PO BID #30 tablet 06/02/17 08/02/18 Acetaminophen [Tylenol] 650 mg PO Q6H PRN 08/02/18 08/02/18 Dorzolamide HCl/Pf [Dorzolamide 2% 1 drops EACHEYE BID 08/02/18 08/02/18 Eye Drop] Multivitamin [Theragran] 1 tab PO DAILY 08/02/18 08/02/18 Timolol 0.5% Ophth Drops [Timoptic 1 drops EACHEYE BID 08/02/18 08/02/18 0.5% Ophth Drops] Umeclidinium Brm/Vilanterol Tr 1 puffs INH DAILY 08/02/18 08/02/18 [Anoro Ellipta 62.5-25 Mcg INH] Carvedilol [Coreg] 6.25 mg PO BID #60 tablet 08/05/18 Furosemide [Lasix] 40 mg PO BIDDIURETIC #60 tablet 08/05/18 Isosorbide Mononitrate [Ismo] 10 mg PO BID #60 tablet 08/05/18 Lisinopril [Zestril] 10 mg PO DAILY #60 tablet 08/05/18 Furosemide [Lasix] 20 mg PO BID #10 tablet 01/07/19 - Allergies Allergies/Adverse Reactions: Allergies Allergy/AdvReac Type Severity Reaction Status Date / Time amlodipine Allergy Unknown Verified 01/07/19 15:44 - Social History Does the pt smoke?: No Smoking Status: Never smoker Does the pt drink ETOH?: Yes Does the pt have substance abuse?: No - Immunizations Immunizations are current?: Yes - POLST POLST Status: DNR PD ED PE NORMAL - Vitals Vital signs reviewed: Yes - General General: Alert and oriented X 3, No acute distress - HEENT HEENT: Moist mucous membranes - Neck Neck: Supple, no meningeal sign - Cardiac Cardiac: RRR - Respiratory Respiratory: No respiratory distress, Other (Mild crackles bibasilar) - Abdomen Abdomen: Soft, Non tender, Non distended - Derm Derm: Warm and dry - Extremities Extremities: Other (1+ pitting edema bilateral lower extreme) - Neuro Neuro: Alert and oriented X 3 - Psych Psych: Normal mood, Normal affect Results - Vitals Vitals: Vital Signs - 24 hr 01/07/19 01/07/19 01/07/19 15:36 18:00 18:11 Temperature 37.0 C 36.6 C Heart Rate 66 64 64 Respiratory 19 15 14 Rate Blood Pressure 160/71 H 161/76 H O2 Saturation 93 94 01/07/19 18:30 Temperature 37.2 C Heart Rate 65 Respiratory 18 Rate Blood Pressure 136/81 H O2 Saturation 94 Oxygen O2 Source Room air - EKG (time done) 1551 Rate: Rate (enter#) (67) Rhythm: Paced - Labs Labs: Microbiology 01/07/19 17:31 Urine Culture - Preliminary Urine,Clean Catch CULTURE IN PROGRESS. RESULTS TO FOLLOW. Laboratory Tests 01/07/19 01/07/19 01/07/19 16:01 16:01 16:01 WBC 8.8 RBC 3.71 L Hgb 12.0 Hct 37.8 MCV 101.9 H MCH 32.3 H MCHC 31.7 L RDW 15.0 Plt Count 168 MPV 11.3 H Neut # (Auto) 6.5 Lymph # (Auto) 1.1 L [place] # (Auto) 1.0 Eos # (Auto) 0.2 Baso # (Auto) 0.0 Absolute Nucleated RBC 0.00 Nucleated RBC % 0.0 Sodium 137 Potassium 4.0 Chloride 101 Carbon Dioxide 24 Anion Gap 12.0 BUN 20 Creatinine 0.7 Estimated GFR (MDRD) 79 L Glucose 114 H Calcium 8.8 Total Bilirubin 0.8 AST 18 ALT < 10 L Alkaline Phosphatase 59 Troponin I 0.06 B-Natriuretic Peptide Total Protein 6.4 L Albumin 3.5 Globulin 2.9 Albumin/Globulin Ratio 1.2 Lipase 28 Urine Color Urine Clarity Urine pH Ur Specific [place] Urine Protein Urine Glucose (UA) Urine Ketones Urine Occult Blood Urine Nitrite Urine Bilirubin Urine Urobilinogen Ur Leukocyte Esterase Urine RBC Urine WBC Ur Squamous Epith Cells Urine Bacteria Ur Microscopic Review Urine Culture Comments 01/07/19 01/07/19 16:01 17:31 WBC RBC Hgb Hct MCV MCH MCHC RDW Plt Count MPV Neut # (Auto) Lymph # (Auto) [place] # (Auto) Eos # (Auto) Baso # (Auto) Absolute Nucleated RBC Nucleated RBC % Sodium Potassium Chloride Carbon Dioxide Anion Gap BUN Creatinine Estimated GFR (MDRD) Glucose Calcium Total Bilirubin AST ALT Alkaline Phosphatase Troponin I B-Natriuretic Peptide 977 H Total Protein Albumin Globulin Albumin/Globulin Ratio Lipase Urine Color YELLOW Urine Clarity CLEAR Urine pH 6.0 Ur Specific [place] <=1.005 Urine Protein NEGATIVE Urine Glucose (UA) NEGATIVE Urine Ketones NEGATIVE Urine Occult Blood TRACE-LYSE Urine Nitrite NEGATIVE Urine Bilirubin NEGATIVE Urine Urobilinogen 0.2 (NORMAL) Ur Leukocyte Esterase SMALL H Urine RBC 0-5 Urine WBC 4-5 Ur Squamous Epith Cells RARE Squamous Urine Bacteria None Seen Ur Microscopic Review INDICATED Urine Culture Comments INDICATED - Rads (name of study) Chest x-ray Radiology: Prelim report reviewed, EMP read contemporaneously, See rad report (Cardiomegaly without CHF or acute pulmonary abnormality.) PD MEDICAL DECISION MAKING - ED course Complexity details: reviewed old records, reviewed results, re-evaluated patient, considered differential, d/w patient, d/w family ED course: 88-year-old female with what appears to be a mild CHF exacerbation. No hypoxia. No respiratory distress. Given extra dose of Lasix. Her BNP is slightly higher than normal. We will increase her Lasix for the next several days and follow-up closely with her doctor. No evidence of acute OR. No evidence of pulmonary embolus. Patient and family counseled regarding signs and symptoms for which I believe and urgent re-evaluation would be necessary. Patient with good understanding of and agreement to plan and is comfortable going home at this time This document was made in part using voice recognition software. While efforts are made to proofread this document, sound alike and grammatical errors may occur. Departure - Departure Disposition: 01 Home, Self Care Clinical Impression: Systolic and diastolic CHF, acute on chronic Condition: Good Instructions: ED CHF General Follow-Up: Alexandro Ramires MD [Primary Care Provider] - Within 3 Days Prescriptions: Furosemide [Lasix] 20 mg PO BID #10 tablet Comments: We are going to increase her Lasix to 60 mg by mouth twice daily for the next 5 days. Follow-up with your doctor for repeat evaluation. Return if you worsen. Discharge Date/Time: 01/07/19 20:07
[2019-01-07 20:07] VITALS: BP 136/81
== END 2019-01-07 20:07 | disposition home or self-care (01) ==
LOC: ED 15:32
DX: I50.43 Acute on chronic combined systolic (congestive) and diastolic (congestive) heart failure (principal); F03.90 Unspecified dementia, unspecified severity, without behavioral disturbance, psychotic disturbance, mood disturbance, and anxiety; R41.0 Disorientation, unspecified
CPT/HCPCS: 36415; 71045; 80053; 81001; 81003; 83690; 83880; 84484; 85025; 87086; 93005; 94640; 96374; 99284

== ENCOUNTER 2019-02-01 14:13 | Outpatient (CLI) | payer MEDICARE, OTHER | END 2019-02-01 14:14 | disposition critical access hospital (66) | LOC: EMS 14:13 | PROVIDERS: ATTEND Surgery | DX: M54.9 Dorsalgia, unspecified (principal); W17.89XA Other fall from one level to another, initial encounter; Y92.480 Sidewalk as the place of occurrence of the external cause; Z79.01 Long term (current) use of anticoagulants | CPT/HCPCS: A0425; A0427 ==

== ENCOUNTER 2019-02-01 14:31 | Emergency (ER) | payer MEDICARE, OTHER ==
[2019-02-01 14:46] LABS: BASOPHILS % (AUTO) 0.4 %; EOSINOPHILS # (AUTO) 0.2 10^3/uL (0.0-0.7); EOSINOPHILS % (AUTO) 4.6 %; HGB - HEMOGLOBIN 12.6 g/dL (12.0-16.0); MEAN CORPUSCULAR HEMOGLOBIN 32.7 pg (27.0-31.0); MEAN CORPUSCULAR HGB CONC 32.1 g/dL (32.0-36.0); MEAN CORPUSCULAR VOLUME 102.1 fL (81.0-99.0); MEAN PLATELET VOLUME 11.1 fL (7.9-10.8); MONOCYTES # (AUTO) 0.5 10^3/uL (0.0-1.0); MONOCYTES % (AUTO) 9.5 %; NEUTROPHILS # (AUTO) 3.5 10^3/uL (1.5-6.6); NEUTROPHILS % (AUTO) 65.6 %; PLT - PLATELET COUNT 154 10^3/uL (130-450); RED BLOOD COUNT 3.85 10^6/uL (4.20-5.40); RED CELL DISTRIBUTION WIDTH 14.6 % (12.0-15.0); WHITE BLOOD COUNT 5.3 x10^3/uL (4.8-10.8)
[2019-02-01 14:54] LABS: CALCIUM 8.8 mg/dL (8.5-10.3); INR 1.6 (0.8-1.2); PT - PROTHROMBIN TIME 17.6 secs (9.9-12.6)
--- NOTE | 2019-02-01 14:56 | ED Physician Documentation ---
PD HPI MAJOR TRAUMA - Stated complaint Stated Complaint: GLF - Chief complaint Chief Complaint: Trauma Ch/Bk - History obtained from History obtained from: Patient, EMS - History of Present Illness Mechanism of injury: Fell (out of a walker and onto the curb) Where injury occurred: Street Timing - onset: How many hours ago (1) Injury(ies) location: Head, Neck, Back (upper and lower back pain). No: Right Upper Extremity, Left Uppper Extremity, Right Lower Extremity, Left Lower Extremity, Right Hand, Left Hand, Right Foot, Left Foot Pain level max: 7 Pain level now: 6 Quality of pain: Pain, Aching, Dull Associated symptoms: No: LOC, AMS, Amnesia, Seizures, Ear drainage, Nasal drainage, Neck pain, Weakness, Paresthesias, Dyspnea, Nausea / vomiting, Hematemesis, Abdominal distension Symptoms improve with: Rest Worsens with: Movement, Palpation Contributing factors: Anticoagulated (eliquis) Recently seen: Not recently seen Review of Systems Ten Systems: 10 systems reviewed and negative Constitutional: denies: Fever, Chills Respiratory: denies: Cough GI: denies: Nausea, Vomiting, Diarrhea Skin: denies: Rash Neurologic: denies: Focal weakness, Numbness, LOC PD PAST MEDICAL HISTORY - Past Medical History Cardiovascular: Pulmonary embolism, Other Respiratory: None Neuro: Dementia, TIA Endocrine/Autoimmune: None GI: None BOTTOM TURNING LATHE TENDER: None : Incontinence HEENT: Glaucoma Psych: None Musculoskeletal: None Derm: None - Past Surgical History Past Surgical History: Yes Cardiovascular: Pacemaker HEENT: Cataracts - Present Medications Home Medications: Ambulatory Orders Medication Instructions Recorded Confirmed Latanoprost 0.005% Ophth Drops 1 drops EACHEYE QPM #1 04/25/17 02/01/19 [Xalatan Ophth Drops] Potassium Chloride [K-Dur] 10 meq PO DAILYWM #30 tablet 04/25/17 02/01/19 Aspirin [Adult Low Dose Aspirin EC] 81 mg PO DAILY #30 05/26/17 02/01/19 Calcium Carbonate [Tums (Calcium 500 mg PO DAILY #30 tablet 05/26/17 02/01/19 Carbonate 500mg)] Apixaban [Eliquis] 5 mg PO BID #30 tablet 06/02/17 02/01/19 Acetaminophen [Tylenol] 650 mg PO Q6H PRN 08/02/18 02/01/19 Dorzolamide HCl/Pf [Dorzolamide 2% 1 drops EACHEYE BID 08/02/18 02/01/19 Eye Drop] Multivitamin [Theragran] 1 tab PO DAILY 08/02/18 02/01/19 Timolol 0.5% Ophth Drops [Timoptic 1 drops EACHEYE BID 08/02/18 02/01/19 0.5% Ophth Drops] Carvedilol [Coreg] 6.25 mg PO BID #60 tablet 08/05/18 02/01/19 Furosemide [Lasix] 40 mg PO BIDDIURETIC #60 tablet 08/05/18 02/01/19 Isosorbide Mononitrate [Ismo] 10 mg PO BID #60 tablet 08/05/18 02/01/19 Lisinopril [Zestril] 10 mg PO DAILY #60 tablet 08/05/18 02/01/19 Furosemide [Lasix] 20 mg PO BID #10 tablet 01/07/19 02/01/19 Hydrocodone/Acetaminophen 1 - 2 each PO Q6H PRN #10 tablet 02/01/19 [Hydrocodon-Acetaminophen 5-325] - Allergies Allergies/Adverse Reactions: Allergies Allergy/AdvReac Type Severity Reaction Status Date / Time amlodipine Allergy Unknown Verified 02/01/19 14:39 - Social History Does the pt smoke?: No Smoking Status: Never smoker Does the pt drink ETOH?: Yes Does the pt have substance abuse?: No - Immunizations Immunizations are current?: Yes - POLST POLST Status: DNR PD ED PE NORMAL - Vitals Vital signs reviewed: Yes - General General: Alert and oriented X 3, No acute distress, Well developed/nourished - HEENT HEENT: Atraumatic, PERRL, Ears normal, Moist mucous membranes - Neck Neck: Supple, no meningeal sign, Other (TTP mid c-spine. no stepoff or deformity) - Cardiac Cardiac: RRR, Strong equal pulses - Respiratory Respiratory: No respiratory distress, Clear bilaterally - Abdomen Abdomen: Soft, Non tender, Non distended - Back Back: Other (TTP over the entire T and L spines. no step off or deformity. ) - Derm Derm: Warm and dry - Extremities Extremities: No deformity, No tenderness to palpate, Normal ROM s pain - Neuro Neuro: Alert and oriented X 3 - Psych Psych: Normal mood, Normal affect Results - Vitals Vitals: Oxygen O2 Source Room air - Labs Labs: Laboratory Tests 02/01/19 02/01/19 02/01/19 14:37 14:37 14:37 WBC 5.3 RBC 3.85 L Hgb 12.6 Hct 39.3 MCV 102.1 H MCH 32.7 H MCHC 32.1 RDW 14.6 Plt Count 154 MPV 11.1 H Neut # (Auto) 3.5 Lymph # (Auto) 1.0 L [place] # (Auto) 0.5 Eos # (Auto) 0.2 Baso # (Auto) 0.0 Absolute Nucleated RBC 0.00 Nucleated RBC % 0.0 PT 17.6 H INR 1.6 H APTT 28.6 Sodium 141 Potassium 3.5 Chloride 103 Carbon Dioxide 25 Anion Gap 13.0 BUN 23 H Creatinine 1.0 Estimated GFR (MDRD) 52 L Glucose 175 H Calcium 8.8 - Rads (name of study) Head CT Radiology: Prelim report reviewed, EMP read contemporaneously, See rad report (1. No acute intracranial abnormality. No significant interval change. 2. 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 Small cystic focus is seen at the level of the genu of the left internal capsule consistent with old lacunar infarct as well. This is unchanged. ) Cervical spine CT Radiology: Prelim report reviewed, EMP read contemporaneously, See rad report (No malalignment. No acute displaced fracture. Mildly exaggerated cervical lordosis. ) Thoracic spine CT Radiology: Prelim report reviewed, EMP read contemporaneously, See rad report (Well aligned thoracic spine. An acute displaced oblique fracture through the spinous process of T3 with no extension into the spinal canal, stable fracture. ) Lumbar spine CT Radiology: Prelim report reviewed, EMP read contemporaneously, See rad report (1. No acute lumbar spine injury. No acute fracture or dislocation. 2. Transitional vertebrae at the lumbosacral junction. This is seen to represent partial lumbarization of S1 greater on the right. 3. Spondylosis throughout the lumbar spine as noted above. -L5-S1: Bilateral mild foraminal stenosis. -L4-L5: Moderate canal stenosis. Right moderate foraminal stenosis. Left mild foraminal stenosis. -L3-L4: Mild canal stenosis. ) Chest without CT Radiology: Prelim report reviewed, EMP read contemporaneously, See rad report (1. No convincing acute injury to the chest. 2. Indeterminate 3 mm right lower lobe nodule. If the patient has a history of smoking or other known risk factors for cancer, consider follow-up chest CT in 12 months. 3. Gallbladder wall calcification, may confer an increased risk for gallbladder cancer. Consider correlation with ultrasound on a nonemergent basis. 4. Other findings as noted above. ) PD MEDICAL DECISION MAKING - ED course Complexity details: reviewed results, re-evaluated patient, considered differential, d/w patient, d/w family ED course: 88-year-old female with a T3 spinous process fracture. Multiple other incidental findings on CT scans to be followed up with her primary care provider. No neurological deficits. Stable fracture. Will not tolerate a brace. We will continue supportive care and follow-up with her doctor. Patient and family counseled regarding signs and symptoms for which I believe and urgent re-evaluation would be necessary. Patient with good understanding of and agreement to plan and is comfortable going home at this time This document was made in part using voice recognition software. While efforts are made to proofread this document, sound alike and grammatical errors may occur. Departure - Departure Disposition: 01 Home, Self Care Clinical Impression: Spinous process fracture Condition: Good Instructions: ED Fx Transverse Spinous Process Follow-Up: Alexandro Ramires MD [Primary Care Provider] - Within 3 Days Prescriptions: Hydrocodone/Acetaminophen [Hydrocodon-Acetaminophen 5-325] 1 - 2 each PO Q6H PRN #10 tablet PRN Reason: pain Comments: Return if you worsen. Follow-up with your doctor for further care. You do have a T3 spinous process fracture. This will likely bruise. You can apply an ice pack tonight. Do not drink alcohol or drive while on narcotic pain medicine. Note that many narcotic pain relievers also contain tylenol/acetaminophen. Please ensure that your total dose of acetaminophen from all sources does not exceed 3 grams (3000mg) per day. You may constipated on this medication, take a stool softener such as "Colace" twice a day while you are on it. Also recommend a xqet-koi-ztdwcal laxative such as senna or MiraLAX any day that you do not have a bowel movement. If you received narcotic pain medication in the emergency department, do not drive or operate machinery for the next 24 hours. Discharge Date/Time: 02/01/19 16:26
[2019-02-01 15:01] LABS: PARTIAL THROMBOPLASTIN TIME 28.6 secs (24.9-33.3)
--- NOTE | 2019-02-01 15:39 | CT Report ---
Reason: fall, struck head and back and neck Procedure Date: 02/01/2019 Accession Number: [id number] / [id number] Procedure: CT - CERVICAL SPINE WO CPT Code: FULL RESULT: EXAM: CT CERVICAL SPINE WITHOUT CONTRAST DATE: 02/01/2019 03:17 PM. HISTORY: Fall, struck head and back and neck. COMPARISONS: HEAD W/O 01/15/2018 7:28 PM CERVICAL SPINE W/O 02/20/2017 2:26 PM. TECHNIQUE: Thin-section axial images were acquired of the cervical spine without contrast. Post-processing: Coronal and sagittal reformats. Other: None. In accordance with CT protocol optimization, one or more of the following dose reduction techniques were utilized for this exam: automated exposure control, adjustment of mA and/or KV based on patient size, or use of iterative reconstructive technique. FINDINGS: Alignment: Mildly exaggerated cervical lordosis, however no scoliosis or spondylolisthesis. Degenerative changes as suggested by bilateral facet arthropathy at nearly all cervical levels. Bones: No fracture or bone lesion. A small sclerotic lesion is seen involving posterior C7 vertebral body, likely a benign bone island. Musculature: Normal. No fatty atrophy. Other: The paravertebral and prevertebral soft tissues are unremarkable. The lung apices are clear. IMPRESSION: No malalignment. No acute displaced fracture. Mildly exaggerated cervical lordosis. [facility]
--- NOTE | 2019-02-01 15:40 | CT Report ---
Reason: fall, struck head and back and neck Procedure Date: 02/01/2019 Accession Number: [id number] / [id number] Procedure: CT - HEAD WO CPT Code: FULL RESULT: EXAM: CT HEAD EXAM DATE: 02/01/2019 03:17 PM. CLINICAL HISTORY: Fall, struck head and back and neck. COMPARISON: HEAD W/O 01/15/2018 7:28 PM HEAD W/O 05/20/2017 3:34 PM. TECHNIQUE: Multiaxial CT images were obtained from the foramen magnum to the vertex. Reformats: Sagittal and coronal. IV contrast: None. In accordance with CT protocol optimization, one or more of the following dose reduction techniques were utilized for this exam: automated exposure control, adjustment of mA and/or KV based on patient size, or use of iterative reconstructive technique. FINDINGS: Parenchyma: Areas of parenchymal hypodensity are once again seen medially in the left frontal lobe and inferolaterally in the right parietal/occipital lobe. Small cystic focus is seen at the level of the genu of the left internal capsule as well. These findings are unchanged. No intracranial mass or hemorrhage is seen. Extraaxial Spaces: Age-related prominence to sulci and cisterns is noted. No subdural or epidural collections identified. Ventricles: Age-related prominence to the ventricular system is seen. No hydrocephalus. Sinuses and Orbits: Imaged paranasal sinuses, orbits, and mastoids show no significant abnormality. Note is made of bilateral lens removal. Bones: No evidence of fracture or calvarial defect. Mild to moderate degenerative change is seen at the right TMJ. Other: Moderate atherosclerotic vascular calcification is seen involving bilateral intracranial ICA and left vertebral artery. IMPRESSION: 1. No acute intracranial abnormality. No significant interval change. 2. 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 Small cystic focus is seen at the level of the genu of the left internal capsule consistent with old lacunar infarct as well. This is unchanged. RADIA
--- NOTE | 2019-02-01 15:44 | CT Report ---
Reason: fall, struck head and back and neck Procedure Date: 02/01/2019 Accession Number: [id number] / [id number] Procedure: CT - CHEST WO CPT Code: FULL RESULT: EXAM: CT CHEST EXAM DATE: 02/01/2019 03:17 PM. CLINICAL HISTORY: Fall, struck head and back and neck. COMPARISONS: None. TECHNIQUE: Routine helical CT imaging was performed through the chest. IV contrast: None. Reconstructions: Coronal and sagittal. In accordance with CT protocol optimization, one or more of the following dose reduction techniques were utilized for this exam: automated exposure control, adjustment of mA and/or KV based on patient size, or use of iterative reconstructive technique. FINDINGS: Lungs/Pleura: Minimal dependent atelectasis. No pleural effusion or pneumothorax. No focal pulmonary consolidation. Airways appear patent. Left lower lobe 6 x 5 mm groundglass opacity (5/48). Right lower lobe 3 mm nodule (5/38). Mediastinum: Moderate cardiomegaly. Mitral annular calcifications. Moderate coronary artery calcifications. Left chest cardiac pacing device and leads appear grossly intact. Scattered aortic atherosclerotic calcification. No aneurysm. Bones: No acute fracture or suspicious bony lesion. Please see separately dictated reports for CT examinations of the cervical, thoracic, and lumbar spine obtained concurrently for additional findings. Visualized Abdomen: Curvilinear gallbladder wall calcification. Other: None. IMPRESSION: 1. No convincing acute injury to the chest. 2. Indeterminate 3 mm right lower lobe nodule. If the patient has a history of smoking or other known risk factors for cancer, consider follow-up chest CT in 12 months. 3. Gallbladder wall calcification, may confer an increased risk for gallbladder cancer. Consider correlation with ultrasound on a nonemergent basis. 4. Other findings as noted above. Please see separately dictated reports for CT examinations of the cervical, thoracic, and lumbar spine obtained concurrently for additional findings. RADIA
--- NOTE | 2019-02-01 15:48 | CT Report ---
Reason: fall, struck head and back and neck Procedure Date: 02/01/2019 Accession Number: [id number] / [id number] Procedure: CT - THORACIC SPINE WO CPT Code: FULL RESULT: EXAM: CT THORACIC SPINE WITHOUT CONTRAST EXAM DATE: 02/01/2019 03:17 PM. CLINICAL HISTORY: Fall, struck head and back and neck. COMPARISONS: CHEST ANGIO 05/20/2017 3:40 PM. TECHNIQUE: Thin-section axial images were acquired of the thoracic spine from C7 to L1 without contrast. Post-processing: Coronal and sagittal reformats. Other: None. In accordance with CT protocol optimization, one or more of the following dose reduction techniques were utilized for this exam: automated exposure control, adjustment of mA and/or KV based on patient size, or use of iterative reconstructive technique. FINDINGS: Alignment: No scoliosis or spondylolisthesis. Bones: An acute displaced oblique fracture is seen through the spinous process of T3 (image 87 on series 5). Stable fracture. No extension into the spinal canal. Musculature: Normal. No fatty atrophy. Other: MIld bilateral dependent atelectasis and scarring noted. Rest of the visualized lungs, mediastinum, and abdominal cavity are unremarkable. IMPRESSION: Well aligned thoracic spine. An acute displaced oblique fracture through the spinous process of T3 with no extension into the spinal canal, stable fracture. RADIA
--- NOTE | 2019-02-01 15:56 | CT Report ---
Reason: fall, struck head and back and neck Procedure Date: 02/01/2019 Accession Number: [id number] / [id number] Procedure: CT - LUMBAR SPINE WO CPT Code: FULL RESULT: EXAM: CT LUMBAR SPINE WITHOUT CONTRAST. EXAM DATE: 02/01/2019 03:17 PM. CLINICAL HISTORY: Fall, struck head and back and neck. COMPARISONS: CHEST ANGIO 05/20/2017 3:40 PM. LUMBAR SPINE 02/17/2009 4:45 PM. THORACIC SPINE W/O 02/01/2019 3:04 PM. TECHNIQUE: Thin-section axial images were acquired of the lumbar spine from T12 to S3 without contrast. Post-processing: Coronal and sagittal reformats. Other: None. In accordance with CT protocol optimization, one or more of the following dose reduction techniques were utilized for this exam: automated exposure control, adjustment of mA and/or KV based on patient size, or use of iterative reconstructive technique. FINDINGS: Alignment: Mild, 3.5 mm, spondylolisthesis is seen at L5-S1. Bones: Note is made of partial lumbarization of S1, greater on the right. Mild osteopenia is noted. No acute fracture or dislocation is seen. Disk Levels/Facets: T12-L1: Unremarkable. L1-L2: Unremarkable. L2-L3: Unremarkable. Mild lateral disk bulge is noted. L3-L4: Mild thickening of the ligamentum flavum is noted. Mild circumferential disk bulge. Mild canal stenosis. L4-L5: Mild degenerative facet change is seen bilaterally. Thickening of the ligamentum flavum is noted. Vacuum cleft phenomenon is present. Mild to moderate circumferential disk bulge is seen. Mild right lateral osteophyte formation is noted. Effacement of the thecal sac is seen with moderate canal stenosis. Effacement of exiting L4 nerve roots is seen. Moderate right foraminal stenosis. Mild left foraminal stenosis. L5-S1: Moderate degenerative facet change is seen. Mild spondylolisthesis. Mild loss of disk space height is present. Vacuum cleft phenomenon is seen. Mild circumferential disk bulge is noted. Mild effacement of the thecal sac is seen without canal stenosis. Effacement of exited L5 nerve roots lateral to the foramen is present. Mild bilateral foraminal stenosis. S1-S2: Facet joints are unremarkable. Mildly hypoplastic disk level is unremarkable. No stenosis. Musculature: Mild fatty atrophy of posterior paraspinous musculature is noted in the mid and lower lumbar spine. Other: Marked vascular calcification is seen involving the visualized aorta and iliac arteries. Note is made of sigmoid diverticulosis. IMPRESSION: 1. No acute lumbar spine injury. No acute fracture or dislocation. 2. Transitional vertebrae at the lumbosacral junction. This is seen to represent partial lumbarization of S1 greater on the right. 3. Spondylosis throughout the lumbar spine as noted above. -L5-S1: Bilateral mild foraminal stenosis. -L4-L5: Moderate canal stenosis. Right moderate foraminal stenosis. Left mild foraminal stenosis. -L3-L4: Mild canal stenosis. [facility]
[2019-02-01 16:16] VITALS: BP 177/94
== END 2019-02-01 16:26 | disposition home or self-care (01) ==
LOC: EDUNIT# → ED 14:31
DX: S22.038A Other fracture of third thoracic vertebra, initial encounter for closed fracture (principal); W19.XXXA Unspecified fall, initial encounter; Y92.410 Unspecified street and highway as the place of occurrence of the external cause; V00.898A Other accident on other pedestrian conveyance, initial encounter
CPT/HCPCS: 36415; 70450; 71250; 72125; 72128; 72131; 80048; 85025; 85610; 85730; 99284

== ENCOUNTER 2019-03-27 12:11 | Outpatient (CLI) | payer MEDICARE, OTHER | END 2019-03-27 12:12 | disposition critical access hospital (66) | LOC: EMS 12:11 | PROVIDERS: ATTEND Surgery | DX: S51.011A Laceration without foreign body of right elbow, initial encounter (principal); W01.198A Fall on same level from slipping, tripping and stumbling with subsequent striking against other object, initial encounter; Y93.01 Activity, walking, marching and hiking; Y92.481 Parking lot as the place of occurrence of the external cause | CPT/HCPCS: A0425; A0429 ==